=== PATIENT | female | born 1940 | race Caucasian/White ===

== ENCOUNTER → 2018-04-03 11:46 | Outpatient (CLI) | payer OTHER, SELFPAY ==
--- NOTE | 2018-04-03 | DI.MG.S_ITS ---
BILATERAL DIGITAL SCREENING MAMMOGRAM 3D/2D WITH CAD: 04/03/2018 CLINICAL: Routine screening. Family history of breast cancer. Comparison is made to exams dated: 04/17/2016 mammogram, 09/14/2014 mammogram, and 05/20/2013 mammogram - [facility]. The tissue of both breasts is heterogeneously dense. This may lower the sensitivity of mammography. Current study was also evaluated with a Computer Aided Detection (CAD) system. No significant masses, calcifications, or other findings are seen in either breast. There has been no significant interval change. IMPRESSION: NEGATIVE There is no mammographic evidence of malignancy. A 1 year screening mammogram is recommended. This exam was interpreted at Station ID: [id number]. NOTE: For mammograms, a report in lay terms will be sent to the patient. Approximately 15% of breast malignancies will not be visualized mammographically. In the management of a palpable breast mass, a negative mammogram must not discourage biopsy of a clinically suspicious lesion. Electronically Signed By: Kathy brown/kamilla:04/06/2018 09:50:49 copy to: MARK SAUNDERS letter sent: Normal Exam ACR BI-RADS Category 1: Negative [id number]
== END ==
PROVIDERS: Family Provider Internal Medicine; PCP Internal Medicine; Visit Provider Internal Medicine
DX: Z12.31 Encounter for screening mammogram for malignant neoplasm of breast (principal); Z80.3 Family history of malignant neoplasm of breast
CPT/HCPCS: 77063; 77067

== ENCOUNTER → 2018-04-08 13:08 | Outpatient (CLI) | payer OTHER, SELFPAY ==
--- NOTE | 2018-04-08 | DI.CT.S_ITS ---
PROCEDURE: CT ABDOMEN PELVIS WO CON INDICATIONS: Left flank pain radiating into left groin since last night TECHNIQUE: Noncontrast 5 mm thick sections acquired from the diaphragms to the symphysis. 5 mm thick coronal and sagittal reformats were then performed. For radiation dose reduction, the following was used: automated exposure control, adjustment of mA and/or kV according to patient size. COMPARISON: [facility], CT, KIDNEY/ URETER/BLADDER, 02/17/2018, 13:19. FINDINGS: Image quality: Excellent. Lung bases: Lung bases are clear. The a 2 mm calcified granuloma is present at the right lung base. Heart size is normal. Urinary system: Both kidneys are normal size. Nonobstructing calculi are present bilaterally measuring 2 mm in diameter. A 4 mm diameter calculus is present within the proximal left ureter (series 3, image 38). There is mild left hydronephrosis. The downstream left ureter is normal caliber. No other left ureteral stones. No right hydronephrosis, hydroureter, or ureterolithiasis. Bladder is decompressed. No bladder calculi. There is mild left perinephric fat stranding. Other solid organs: Liver is normal in size. Gallbladder is unremarkable. Pancreas is normal in contours. Spleen is normal in size. A splenule is present at the splenic hilum. No adrenal nodules. Peritoneum and bowel: Unenhanced bowel loops demonstrate normal wall thickness and caliber. Anastomotic suture is present within loops of small bowel within the right lower quadrant. The appendix is thin walled and gas filled. There are scattered sigmoid diverticula. No evidence for diverticulitis. No free fluid or air. Nodes and vessels: No retroperitoneal or mesenteric adenopathy by size criteria. Aorta and inferior vena cava are normal in caliber. There are scattered atheromatous calcifications throughout the aorta and iliac arteries bilaterally. Abdominal wall: No ventral hernias. The anterior incisional fluid collection visualized on the study dated 02/17/18 has decreased in size and now measures approximately 1.3 x 1.8 cm (previously measured approximately 2.9 x 3.1 cm). Pelvis: No free pelvic fluid. No inguinal hernias or adenopathy. Bones: No suspicious bony lesions. No vertebral body compression fractures. IMPRESSION: 1. Nonobstructive bilateral nephrolithiasis. 2. 4 mm diameter calculus within the proximal left ureter which does not appear obstructing at this time, but is suspicious for intermittent obstruction with resultant mild hydronephrosis and mild left perinephric fat stranding. This may be the etiology of the patient's flank pain. 3. Diverticulosis. No acute diverticulitis. 4. Normal appendix. 5. Decrease in the size of the incisional fluid collection when compared with the study dated 02/17/18. Dictated by: Kathy Elliott M.D. on 04/08/2018 at 13:52 Approved by: Kathy Elliott M.D. on 04/08/2018 at 14:10
[2018-04-08 13:49] LABS: Add Manual Diff / Slide Review NO; Basophils Percent Auto 0.4 % (0-2); Eosinophils Percent Auto 0.2 % (2-4); Hematocrit 37.9 % (36-46); Hemoglobin 12.7 g/dL (12.0-16.0); Lymphocytes Percent Auto 19.6 % (25-40); Mean Corpuscular HGB Conc 33.6 % (30-36); Mean Corpuscular Hemoglobin 28.8 PG (26-34); Mean Corpuscular Volume 85.6 fL (80-100); Monocytes Percent Auto 3.8 % (3-14); Neutrophils Absolute Auto 5800 /uL (3000-5900); Platelet Count 269 X10^3/uL (150-400); Red Blood Cell Count 4.42 X10^6/uL (4.0-5.2); Red Cell Distribution Width 13.9 % (11.6-14.8); White Blood Cell Count 7.7 X10^3/uL (4.5-11.0)
[2018-04-08 13:56] LABS: BUN Creatinine Ratio 23.3 (6-22); Blood Urea Nitrogen 14 mg/dL (7-17); Calcium 9.7 mg/dL (8.4-10.2); Carbon Dioxide 28 mmol/L (22-32); Chloride 95 mmol/L (98-107); Estimated Glomerular Filt Rate > 60.0 mL/min (>60); Glucose 142 mg/dL (80-110); HEMOLYSIS < 15 (0-50); Potassium 4.3 mmol/L (3.4-5.1); Sodium 136 mmol/L (137-145)
== END ==
PROVIDERS: Family Provider Internal Medicine; PCP Internal Medicine; Visit Provider Internal Medicine
DX: R10.32 Left lower quadrant pain (principal); N20.0 Calculus of kidney; K57.90 Diverticulosis of intestine, part unspecified, without perforation or abscess without bleeding
CPT/HCPCS: 36415; 74176; 80048; 85025

== ENCOUNTER → 2018-04-09 14:22 | Outpatient (CLI) | payer OTHER, SELFPAY | PROVIDERS: Family Provider Internal Medicine; PCP Internal Medicine; Visit Provider Internal Medicine | DX: M85.80 Other specified disorders of bone density and structure, unspecified site (principal) ==

== ENCOUNTER → 2018-06-22 19:55 | Outpatient (CLI) | payer OTHER, SELFPAY | PROVIDERS: Family Provider Internal Medicine; PCP Internal Medicine; Visit Provider Physician Assistant | DX: R10.9 Unspecified abdominal pain (principal); R31.9 Hematuria, unspecified | CPT/HCPCS: 87086 ==

== ENCOUNTER 2018-08-15 13:44 | Inpatient (IN) | payer OTHER, SELFPAY ==
[2018-08-15 13:47] VITALS: BP 128/70; PULSE 69; RESP 20; TEMP 36.8; O2SAT 100
--- NOTE | 2018-08-15 14:02 | ED.ABDPAIN ---
HPI - Abdominal Pain General Chief Complaint: Abdominal Pain Stated Complaint: SHARP PAIN IN MIDSECTION Time Seen by Provider: 08/15/18 14:01 Source: patient Mode of arrival: ambulatory Limitations: no limitations History of Present Illness HPI narrative: Patient is a 77-year-old female who presents with mid abdominal pain which started today around noon she feels nauseated vomiting. She does have a history a resection small bowel resection and small-bowel obstruction. She has increased pain and persistent nausea. She has vomited her prior visits and lunch. 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 This was diagnosed in January 2018, she had a prolonged stay due to all ileus versus obstruction required TPN. MD complaint: abdominal pain Onset (ago): hour(s) Related Data Home Medications Medication Instructions Recorded Confirmed aspirin [Aspirin Low Dose] 81 mg PO Q OTHER DAY #0 03/03/11 08/15/18 cholecalciferol (vitamin D3) 2,000 unit PO Q OTHER DAY #0 03/03/11 08/15/18 [Vitamin D3] ascorbic acid (vitamin C) 500 mg PO QDAY #0 05/20/13 08/15/18 vitamin B complex 1 cap PO DAILY #0 05/20/13 08/15/18 cetirizine 10 mg PO QDAY #0 06/26/17 08/15/18 amlodipine 10 mg PO QDAY #0 12/25/17 08/15/18 aspirin 325 mg PO PRN #0 12/25/17 08/15/18 atorvastatin [Lipitor] 10 mg PO DAILY #0 12/25/17 08/15/18 esomeprazole magnesium [Nexium] 40 mg PO Q OTHER DAY #0 12/25/17 08/15/18 lorazepam 0 mg PO BIDP PRN #0 12/25/17 08/15/18 losartan 100 mg PO QDAY #0 12/25/17 08/15/18 metoprolol succinate 50 mg PO QDAY #0 12/25/17 08/15/18 vitamin A 1 tab PO QDAY #0 12/25/17 08/15/18 omega 9-vwf-xrz-fish oil [Fish Oil] 1,000 mg PO Q OTHER DAY #0 01/20/18 08/15/18 Ca carb-Ca gluc-Mg ox-Mg gluco 1 tab PO Q OTHER DAY 08/15/18 08/15/18 [Calcium Magnesium] alendronate 35 mg PO QWEEK 08/15/18 08/15/18 metformin 850 mg PO BID 08/15/18 08/15/18 Allergies Allergy/AdvReac Type Severity Reaction Status Date / Time No Known Drug Allergies Allergy Verified 06/22/18 19:43 Review of Systems Review of Systems GENERAL: Denies chills, fatigue, malaise, fever, sweats, travel HEENT: Denies sinus pain, ear pain, sore throat, difficulty swallowing, neck pain RESPIRATORY: Denies dyspnea, cough, wheezing, hemoptysis, sputum. CARDIOVASCULAR: Denies chest pain, palpitations, orthopnea, edema GASTROINTESTINAL: See HPI : Denies dysuria, frequency, incontinence, hematuria, urinary retention, flank pain. MUSCULOSKELETAL: Denies weakness, joint pain, or bony pain SKIN: No rash, no erythema, no pruritus NEUROLOGIC: Denies weakness, dizziness, headache, numbness, change in speech, confusion PSYCHIATRIC: No concerning psychosocial issues. 12 point review of systems is negative except for those stated above and HPI [facility] Social History Smoking Status: Never smoker Exam Initial Vital Signs Initial Vital Signs: Vital Signs Temperature 98.3 F 08/15/18 13:47 Pulse Rate 69 08/15/18 13:47 Respiratory Rate 20 08/15/18 13:47 Blood Pressure 128/70 08/15/18 13:47 Pulse Oximetry 100 08/15/18 13:47 GENERAL: Alert elderly female appears in pain actively dry heaving HEENT: Head atraumatic,EOMI, pupils reactive, face symmetric, dry mucous membranes CARDIOVASCULAR: Regular rate and rhythm without murmurs, rubs or gallops. RESPIRATORY: Breath sounds equal bilaterally, no wheezes rales or rhonchi. ABDOMEN: Soft, slightly distended mid abdominal pain of vertical scar noted decreased bowel sounds EXTREMITIES: Normal range of motion, no clubbing or edema. Neurovascularly intact NEUROLOGICAL: Alert and oriented x4.Normal gait and speech. Cranial nerves II through XII grossly intact. SKIN: Warm, dry, no laceration, no petechiae, no rashes or lesions. Course Orders Ordered: ED Orders 08/15/18 14:05 Complete Blood Count AUTO DIFF Stat Comprehensive Metabolic Panel Stat Lipase Stat 08/15/18 14:35 Lactate (Lactic Acid) Stat 08/15/18 14:52 CT abdomen pelvis w con Stat 08/15/18 16:17 Consult to General Surgery Stat Sodium Chloride (Normal Saline 0.9%) 1,000 mls @ 1,000 mls/hr IV CONT CAROLINE Last Infusion: 08/15/18 16:00 Dose: 0 mls/hr Admin: 08/15/18 14:38 Dose: 1,000 mls/hr Discontinued Medications Morphine Sulfate (Morphine) 2 mg IV NOW ONE Stop: 08/15/18 14:22 Last Admin: 08/15/18 14:39 Dose: 2 mg Ondansetron HCl (Zofran) 4 mg IV NOW ONE Stop: 08/15/18 14:22 Last Admin: 08/15/18 14:39 Dose: 4 mg Vital Signs - 8 hr 08/15/18 13:47 08/15/18 16:00 Temperature 98.3 F Pulse Rate 69 58 L Respiratory Rate 20 15 Blood Pressure 128/70 Blood Pressure [Right Arm] 141/66 H Pulse Oximetry 100 97 MDM - Abdominal Pain Lab Data Attestation: I reviewed the patient's lab results. Result diagrams: 08/15/18 14:05 08/15/18 14:05 Lab Results 08/15/18 08/15/18 08/15/18 Range/Units 14:05 14:05 14:35 WBC 8.8 (4.5-11.0) X10^3/uL RBC 4.68 (4.0-5.2) X10^6/uL Hgb 12.2 (12.0-16.0) g/dL Hct 37.1 (36-46) % MCV 79.4 L (80-100) fL MCH 26.1 (26-34) PG MCHC 32.8 (30-36) % RDW 15.1 H (11.6-14.8) % Plt Count 280 (150-400) X10^3/uL Neut % (Auto) 67.3 (50-75) % Lymph % (Auto) 25.0 (25-40) % [place] % (Auto) 6.1 (3-14) % Eos % (Auto) 0.8 L (2-4) % Baso % (Auto) 0.8 (0-2) % Neut # (Auto) 5900 (5483-5890) /uL Sodium 141 (137-145) mmol/L Potassium 3.5 (3.4-5.1) mmol/L Chloride 100 (98-107) mmol/L Carbon Dioxide 29 (22-32) mmol/L BUN 14 (7-17) mg/dL Creatinine 0.60 (0.52-1.04) mg/dL Estimated GFR > 60.0 (>60) mL/min BUN/Creatinine Ratio 23.3 H (6-22) Glucose 120 H (80-110) mg/dL Lactate 2.0 (0.7-2.1) mmol/L Calcium 9.8 (8.4-10.2) mg/dL Total Bilirubin 0.5 (0.2-1.3) mg/dL AST 29 (14-36) IU/L ALT 38 (9-52) IU/L Alkaline Phosphatase 80 (38-126) U/L Total Protein 7.5 (6.3-8.2) g/dL Albumin 4.6 (3.5-5.0) g/dL Globulin 2.9 (1.7-4.1) g/dL Albumin/Globulin Ratio 1.6 (1.0-2.8) Lipase 113 (23-300) U/L Point of care testing: Urine Dip Bedside Urine Glucose Negative Bedside Urine Bilirubin - Negative Bedside Urine Ketone - Negative Urine Specific Buna 1.010 Bedside Urine Occult Blood - Negative Bedside Urine pH 8.0 Bedside Urine Protein - Negative Bedside Urine Urobilinogen - Negative Bedside Urine Nitrite - Negative Bedside Urine Leukocytes - Negative Esterase Imaging Data CT scan - abdomen: Radiologist's impression: PROCEDURE: CT ABDOMEN PELVIS W CON INDICATIONS: pain vomiting hx SBO TECHNIQUE: After the administration of intravenous contrast, 5 mm thick sections acquired from the diaphragm to the symphysis. 5 mm coronal and sagittal reformats were acquired. For radiation dose reduction, the following was used: automated exposure control, adjustment of mA and/or kV according to patient size. COMPARISON: [facility], CT, CT KUB, 06/25/2018, 16:24. FINDINGS: Image quality: Excellent. ABDOMEN: Lung bases: Lung bases are clear. Heart size is normal. Solid organs: Liver demonstrates unchanged hepatic cysts and steatosis. Gallbladder is unremarkable. Biliary system is non dilated. Pancreas enhances normally. Spleen is normal in size and enhancement. There is unchanged left adrenal nodularity. Kidneys demonstrate normal size and enhancement, without hydronephrosis. Bilateral low attenuation renal foci are present. There is a new 3 mm nonobstructing left inferior pole renal calcification, as well as an unchanged punctate mid pole calcification. Punctate superior nonobstructing right renal stone is unchanged. Peritoneum and bowel: Anastomotic changes are present within the small bowel in the anterior abdomen. There is dilated fluid-filled loops of mild to moderately dilated small bowel predominantly within the central and anterior right paracentral lower abdomen and pelvis. Transition point appears to be near the anastomotic site. No free fluid or free air. Colonic diverticula are noted without inflammation. Nodes and vessels: No retroperitoneal or mesenteric adenopathy by size criteria. Aorta and inferior vena cava are normal in size. Miscellaneous: No ventral hernias. PELVIS: Genitourinary: Bladder wall thickness is normal. Miscellaneous: No inguinal hernias or adenopathy. Bones: No suspicious bony lesions. No vertebral body compression fractures. IMPRESSION: 1. Mild/moderate dilated loops of fluid-filled small bowel within the abdomen and pelvis as described above most consistent with partial small bowel traction. Transition point appears to be located in the region of the anastomosis possibly secondary to adhesions. No free fluid or free air. 2. Diverticulosis. 3. Nonobstructing bilateral renal calculi as above. Dictated by: Racheal Mauricio M.D. on 08/15/2018 at 15:08 MDM Narrative Medical decision making narrative: Patient's pain is much better after morphine however not completely gone. CT does reveal partial small bowel obstruction. Dr. Ritter, has been updated in symptoms and test results. Recommend admitting to Medicine. He is in ED to evaluate patient. Not surgical at this time conservative treatment only. Dr. Gallego updated on surgery recommendations patient's symptoms and test results. Recommends inpatient and will likely require 2 midnights. Discharge Plan Departure Patient Disposition: Admitted As Inpatient Clinical Impression: Partial small bowel obstruction
[2018-08-15 14:27] LABS: Add Manual Diff / Slide Review NO; Basophils Percent Auto 0.8 % (0-2); Eosinophils Percent Auto 0.8 % (2-4); Hematocrit 37.1 % (36-46); Hemoglobin 12.2 g/dL (12.0-16.0); Mean Corpuscular HGB Conc 32.8 % (30-36); Mean Corpuscular Hemoglobin 26.1 PG (26-34); Mean Corpuscular Volume 79.4 fL (80-100); Monocytes Percent Auto 6.1 % (3-14); Neutrophils Absolute Auto 5900 /uL (3000-5900); Neutrophils Percent Auto 67.3 % (50-75); Platelet Count 280 X10^3/uL (150-400); Red Blood Cell Count 4.68 X10^6/uL (4.0-5.2); Red Cell Distribution Width 15.1 % (11.6-14.8); White Blood Cell Count 8.8 X10^3/uL (4.5-11.0)
[2018-08-15] MEDS: SODIUM CHLORIDE 0.9% 1,000 ML 1000 ML IV (14:38)
[2018-08-15] MEDS: MORPHINE 2 MG/ML INJ IV (14:39)
[2018-08-15] MEDS: ONDANSETRON 4 MG/2 ML INJ IV (14:39)
[2018-08-15 14:40] LABS: Alanine Aminotransferase 38 IU/L (9-52); Albumin 4.6 g/dL (3.5-5.0); Albumin Globulin Ratio 1.6 (1.0-2.8); Alkaline Phosphatase 80 U/L (38-126); Aspartate Aminotransferase 29 IU/L (14-36); BUN Creatinine Ratio 23.3 (6-22); Bilirubin Total 0.5 mg/dL (0.2-1.3); Blood Urea Nitrogen 14 mg/dL (7-17); Calcium 9.8 mg/dL (8.4-10.2); Carbon Dioxide 29 mmol/L (22-32); Chloride 100 mmol/L (98-107); Estimated Glomerular Filt Rate > 60.0 mL/min (>60); Globulin 2.9 g/dL (1.7-4.1); Glucose 120 mg/dL (80-110); HEMOLYSIS < 15 (0-50); Lipase 113 U/L (23-300); Potassium 3.5 mmol/L (3.4-5.1); Sodium 141 mmol/L (137-145); Total Protein 7.5 g/dL (6.3-8.2)
--- NOTE | 2018-08-15 14:52 | DI.CT.S_ITS ---
PROCEDURE: CT ABDOMEN PELVIS W CON INDICATIONS: pain vomiting hx SBO TECHNIQUE: After the administration of intravenous contrast, 5 mm thick sections acquired from the diaphragm to the symphysis. 5 mm coronal and sagittal reformats were acquired. For radiation dose reduction, the following was used: automated exposure control, adjustment of mA and/or kV according to patient size. COMPARISON: [facility], CT, CT KUB, 06/25/2018, 16:24. FINDINGS: Image quality: Excellent. ABDOMEN: Lung bases: Lung bases are clear. Heart size is normal. Solid organs: Liver demonstrates unchanged hepatic cysts and steatosis. Gallbladder is unremarkable. Biliary system is non dilated. Pancreas enhances normally. Spleen is normal in size and enhancement. There is unchanged left adrenal nodularity. Kidneys demonstrate normal size and enhancement, without hydronephrosis. Bilateral low attenuation renal foci are present. There is a new 3 mm nonobstructing left inferior pole renal calcification, as well as an unchanged punctate mid pole calcification. Punctate superior nonobstructing right renal stone is unchanged. Peritoneum and bowel: Anastomotic changes are present within the small bowel in the anterior abdomen. There is dilated fluid-filled loops of mild to moderately dilated small bowel predominantly within the central and anterior right paracentral lower abdomen and pelvis. Transition point appears to be near the anastomotic site. No free fluid or free air. Colonic diverticula are noted without inflammation. Nodes and vessels: No retroperitoneal or mesenteric adenopathy by size criteria. Aorta and inferior vena cava are normal in size. Miscellaneous: No ventral hernias. PELVIS: Genitourinary: Bladder wall thickness is normal. Miscellaneous: No inguinal hernias or adenopathy. Bones: No suspicious bony lesions. No vertebral body compression fractures. IMPRESSION: 1. Mild/moderate dilated loops of fluid-filled small bowel within the abdomen and pelvis as described above most consistent with partial small bowel traction. Transition point appears to be located in the region of the anastomosis possibly secondary to adhesions. No free fluid or free air. 2. Diverticulosis. 3. Nonobstructing bilateral renal calculi as above. Dictated by: Racheal Mauricio M.D. on 08/15/2018 at 15:08 Approved by: Racheal Mauricio M.D. on 08/15/2018 at 15:15
[2018-08-15 16:00] VITALS: BP 141/66; PULSE 58; RESP 15; O2SAT 97
[2018-08-15 17:05] VITALS: BMI 30.8
[2018-08-15 17:15] VITALS: BP 116/68; RESP 20; O2SAT 94
[2018-08-15 17:28] VITALS: BP 115/55; PULSE 59; RESP 16; O2SAT 95
--- NOTE | 2018-08-15 18:12 | PM.HP.1 ---
History of Present Illness Date Patient Seen: 08/15/18 Time Patient Seen: 18:13 Chief complaint: SHARP PAIN IN MIDSECTION Narrative: Patient is a very pleasant 77 years of age female who notes the abrupt onset of mid abdominal region discomfort that was quite sharp from the onset. Patient had 1 episode of nausea and vomiting came to the emergency room for further eval. Patient was attended by her Patient has prior history of neuroendocrine tumor of the abdomen with surgery in January of 2018. No history of any other tumor identified. No recent fevers and chills. No recent significant diarrhea or constipation. Patient History Comment: Past medical history Neuroendocrine tumor of the abdomen with surgical excision January 2018 Pre diabetes Hypertension Hyperlipidemia Rheumatic fever at 5 years of age with minimal heart murmur since No history of the following no atherosclerotic heart disease no thyroid disorder history of DVT or PE for history of peripheral vascular disease Social history Patient is Nonsmoker Surgical history Last major surgery was the abdominal surgery in January of 2018 with excision of tumor Family history No history of neuroendocrine tumor in other family members Mother with history of breast cancer One aunt with history of kidney cancer Another aunt with history of bladder cancer Family & Social History Tobacco & Substance use: Smoking Status Never smoker Meds Home Medications Medication Instructions Recorded Confirmed Type aspirin [Aspirin Low Dose] 81 mg PO Q OTHER DAY #0 03/03/11 08/15/18 History cholecalciferol (vitamin D3) 2,000 unit PO Q OTHER DAY #0 03/03/11 08/15/18 History [Vitamin D3] ascorbic acid (vitamin C) 500 mg PO QDAY #0 05/20/13 08/15/18 History vitamin B complex 1 cap PO DAILY #0 05/20/13 08/15/18 History cetirizine 10 mg PO QDAY #0 06/26/17 08/15/18 History amlodipine 10 mg PO QDAY #0 12/25/17 08/15/18 History aspirin 325 mg PO PRN #0 12/25/17 08/15/18 History atorvastatin [Lipitor] 10 mg PO DAILY #0 12/25/17 08/15/18 History esomeprazole magnesium [Nexium] 40 mg PO Q OTHER DAY #0 12/25/17 08/15/18 History lorazepam 0 mg PO BIDP PRN #0 12/25/17 08/15/18 History losartan 100 mg PO QDAY #0 12/25/17 08/15/18 History metoprolol succinate 50 mg PO QDAY #0 12/25/17 08/15/18 History vitamin A 1 tab PO QDAY #0 12/25/17 08/15/18 History omega 3-uuy-dro-fish oil [Fish Oil] 1,000 mg PO Q OTHER DAY #0 01/20/18 08/15/18 History Ca carb-Ca gluc-Mg ox-Mg gluco 1 tab PO Q OTHER DAY 08/15/18 08/15/18 History [Calcium Magnesium] alendronate 35 mg PO QWEEK 08/15/18 08/15/18 History metformin 850 mg PO BID 08/15/18 08/15/18 History Allergies Allergy/AdvReac Type Severity Reaction Status Date / Time No Known Drug Allergies Allergy Verified 06/22/18 19:43 Review of Systems Review of Systems A 10 point system reviewed with the patient was negative except for the complaints as noted of the sharp abdominal pain with 1 episode of nausea and vomiting Exam Vital Signs (past 8 hours): - 08/15/18 13:47 08/15/18 16:00 08/15/18 17:28 Temperature 98.3 F Pulse Rate 69 58 L 59 L Respiratory Rate 20 15 16 Blood Pressure 128/70 115/55 L Blood Pressure [Right Arm] 141/66 H Pulse Oximetry 100 97 95 Oxygen Delivery Method Room Air Narrative Exam Narrative: General appearance patient is not awake and alert no apparent distress at rest Psychiatric well oriented to time place and person mood is pleasant affect is appropriate Skin no dermatitis no rash nonjaundiced normal turgor Eyes pupils are equal round and reactive to light Ears nose and throat hearing grossly intact nose septum to midline no bleeding no oropharyngeal lesions noted Respiratory fairly clear to auscultation with no wheezing no crackles good airflow Cardiovascular regular rate rhythm no murmurs PMI nondisplaced +3 pulses to extremities GI no significant tenderness to palpation bowel sounds are present but a bit diminished soft abdomen no bruits Neurologic no focal neurologic changes cranial nerves 2-12 grossly intact Musculoskeletal 5/5 motor range of motion appears normal no clubbing Objective Labs Result Diagrams: 08/15/18 14:05 08/15/18 14:05 Labs: Laboratory Results - last 24 hr 08/15/18 08/15/18 08/15/18 14:05 14:05 14:35 WBC 8.8 RBC 4.68 Hgb 12.2 Hct 37.1 MCV 79.4 L MCH 26.1 MCHC 32.8 RDW 15.1 H Plt Count 280 Neut % (Auto) 67.3 Lymph % (Auto) 25.0 [place] % (Auto) 6.1 Eos % (Auto) 0.8 L Baso % (Auto) 0.8 Neut # (Auto) 5900 Sodium 141 Potassium 3.5 Chloride 100 Carbon Dioxide 29 BUN 14 Creatinine 0.60 Estimated GFR > 60.0 BUN/Creatinine Ratio 23.3 H Glucose 120 H Lactate 2.0 Calcium 9.8 Total Bilirubin 0.5 AST 29 ALT 38 Alkaline Phosphatase 80 Total Protein 7.5 Albumin 4.6 Globulin 2.9 Albumin/Globulin Ratio 1.6 Lipase 113 Assessment & Plan Plan: Assessment/Plan Narrative: Incomplete small bowel obstruction General surgeon saw patient in the ER and okayed patient to have some broth. Nursing staff notes to be cautious regarding oral intake tonight, including fluids. Analgesic therapy to be provided Dilaudid 0.5 mg q.2 hours for [id number] pain as needed and 1 mg every 2 hr as needed for more of a moderate to severe pain. Consider two-view x-ray in a.m. and possibly Gastrografin small bowel series to further valve Pre diabetes Will obtain patient's hemoglobin A1c. She has not been taking her metformin for an indeterminate period of time Hypertension and hyperlipidemia Continue home medications as tolerated Time Spent With Patient Time with patient: Greater than 35 minutes (50 min to admit to inpatient)
[2018-08-15 18:19] VITALS: BMI 30.8
[2018-08-15] MEDS: SODIUM CHLORIDE 0.9% 1,000 ML 100 ML IV (19:03)
[2018-08-15] MEDS: HYDROMORPHONE 1 MG INJ 0.5 MG IV (19:14)
[2018-08-15 19:54] LABS: C-Reactive Protein Quant < 0.5 mg/dL (<1.0)
--- NOTE | 2018-08-15 23:54 | PC.NURSE ---
Alert/oriented. Denies pain/discomfort, reports hasn't had any pain since last medicated. Patient reports having a BM on prior shift and that the stool was hard. Abdomen soft, non-tender bowel tones hypoactive. Call light within reach.
[2018-08-16] VITALS (10 sets, daily range): BP systolic 123–134; BP diastolic 51–76; PULSE 49–57; RESP 16–19; TEMP 36.4–36.7; O2SAT 92–98
[2018-08-16] MEDS: SODIUM CHLORIDE 0.9% 1,000 ML 100 ML IV (04:10)
[2018-08-16 05:48] LABS: C-Reactive Protein Quant 0.6 mg/dL (<1.0)
--- NOTE | 2018-08-16 08:16 | PC.NURSE ---
Addendum entered by Stephanie Downey R.N. 08/16/18 10:22: Ate about half of the clear liquids sent for breakfast. Denies N/V or abd pain after eating. States she's feeling well and is hoping she might get to go home today. Up to BR with SBA, then back to bed. Encouraged ankle waving while in bed. Call light in reach, bed alarm on. Original Note: Shift summary: Awake and alert, oriented X3. Denies abd pain, denies N/V. BT+, hypoactive. Reports passing flatus last mikala, unsure since then. Abd soft, nontender, non-distended. Tolerating clear liquids. IVF per orders, site in L AC WNL. Indep with bed mobility, SBA OOB, steady on feet. Able to make needs known. Call light in reach, bed alarm on.
--- NOTE | 2018-08-16 08:49 | CM.DANOTE ---
DCP: Case received, EMR reviewed and met with patient. Introduced self and role. DCP template completed with information currently available. Patient is a 77 year old female who admitted yesterday afternoon to the care of the hospitalist team. PCP: Dr. Jyoti Prasad. Payer: confirmed: [employer]. Patient came to hospital with symptoms of pain in her midsection. She carries a diagnosis of incomplete small bowel obstruction. Patient alert and oriented, independent. Lives in [place] with her spouse. Gave a health history of her illness to this telephonic case manager. 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 P: DCP to continue to assess. Patient's goal is to return home. Chen Josue RN/Marketing Senior Recruiter
[2018-08-16] MEDS: ALENDRONATE 70 MG TABLET 35 MG PO (09:45)
[2018-08-16] MEDS: LORATADINE 10 MG TABLET PO (09:46)
[2018-08-16] MEDS: ATORVASTATIN 10 MG TABLET PO (09:46)
[2018-08-16] MEDS: AMLODIPINE 5 MG TABLET 10 MG PO (09:46)
[2018-08-16] MEDS: ASCORBIC ACID 500 MG TABLET PO (09:46)
[2018-08-16] MEDS: LOSARTAN 50 MG TABLET 100 MG PO (09:47)
[2018-08-16] MEDS: VITAMIN B COMPLEX 1 CAPSULE 1 CAP PO (09:47)
[2018-08-16] MEDS: METOPROLOL ER 50 MG TABLET PO (09:48)
--- NOTE | 2018-08-16 13:50 | PM.PN.1 ---
Subjective Date Patient Seen: 08/16/18 Interval history: Chart reviewed, patient seen and examined. She reports a large BM last night. She also reports gas from below. She tolerated a clear liquid breakfast and lunch without difficulty. Patient reports pressure near her bladder but no upper abdominal discomfort. Exam Vital Signs (past 8 hours): - 08/16/18 07:55 08/16/18 08:13 08/16/18 12:35 Temperature 97.8 F 98.1 F Pulse Rate 53 L 49 L Respiratory Rate 19 17 Blood Pressure 124/74 123/63 Pulse Oximetry 95 95 95 Oxygen Delivery Method Room Air Oxygen Flow Rate 0 Narrative Exam Narrative: Pleasant female in no acute distress Lungs: Clear to auscultation CV: RRR nl Sl S2 2/6 NASEEM Abd: soft/ non distended/ non tender/ no boardlike rigidity/ no palpable masses, hypoactive bowel tones Ext: no edema Objective Labs Result Diagrams: 08/15/18 14:05 08/15/18 14:05 Labs: Laboratory Results - last 24 hr 08/15/18 08/15/18 08/15/18 14:05 14:05 14:35 WBC 8.8 RBC 4.68 Hgb 12.2 Hct 37.1 MCV 79.4 L MCH 26.1 MCHC 32.8 RDW 15.1 H Plt Count 280 Neut % (Auto) 67.3 Lymph % (Auto) 25.0 [place] % (Auto) 6.1 Eos % (Auto) 0.8 L Baso % (Auto) 0.8 Neut # (Auto) 5900 Sodium 141 Potassium 3.5 Chloride 100 Carbon Dioxide 29 BUN 14 Creatinine 0.60 Estimated GFR > 60.0 BUN/Creatinine Ratio 23.3 H Glucose 120 H Hemoglobin A1c Lactate 2.0 Calcium 9.8 Total Bilirubin 0.5 AST 29 ALT 38 Alkaline Phosphatase 80 C-Reactive Protein Total Protein 7.5 Albumin 4.6 Globulin 2.9 Albumin/Globulin Ratio 1.6 Lipase 113 08/15/18 08/15/18 08/16/18 19:30 19:30 04:50 WBC RBC Hgb Hct MCV MCH MCHC RDW Plt Count Neut % (Auto) Lymph % (Auto) [place] % (Auto) Eos % (Auto) Baso % (Auto) Neut # (Auto) Sodium Potassium Chloride Carbon Dioxide BUN Creatinine Estimated GFR BUN/Creatinine Ratio Glucose Hemoglobin A1c 7.0 H Lactate Calcium Total Bilirubin AST ALT Alkaline Phosphatase C-Reactive Protein < 0.5 0.6 Total Protein Albumin Globulin Albumin/Globulin Ratio Lipase Assessment & Plan (1) Partial small bowel obstruction: Problem details: Will advance diet as tolerated. Heplock IVF Current visit: Yes Status: Acute (2) Hypertension: Problem details: continue usual home medications Current visit: No Status: Acute Plan: Assessment/Plan Narrative: If she tolerates he diet without nausea/vomiting or abdominal pain anticipate discharge tomorrow. Quality VTE Deep Vein Thrombosis/Pulmonary Embolism Present on Admission: No
--- NOTE | 2018-08-16 16:35 | PM.PN.1 ---
Subjective Date Patient Seen: 08/16/18 Time Patient Seen: 16:35 Interval history: Charlene is a [place] lady who is well known to my service. My partner Dr. Thorne operated on her this past January for a neuroendocrine tumor. She was admitted last evening with abdominal pain. She had a large bowel movement overnight and has passed a significant amount of flatus today. She reports that she is feeling very well now. Exam Vital Signs (past 8 hours): - 08/16/18 12:35 08/16/18 16:22 Temperature 98.1 F 97.6 F Pulse Rate 49 L 55 L Respiratory Rate 17 18 Blood Pressure 123/63 130/64 Pulse Oximetry 95 98 Oxygen Delivery Method Room Air Oxygen Flow Rate 0 Narrative Exam Narrative: Abdomen is soft, nontender, active bowel sounds. No rebound or guarding. No peritoneal signs. Well-healed surgical incisions. Objective Labs Result Diagrams: 08/15/18 14:05 08/15/18 14:05 Labs: Laboratory Results - last 24 hr 08/15/18 08/15/18 08/16/18 19:30 19:30 04:50 Hemoglobin A1c 7.0 H C-Reactive Protein < 0.5 0.6 Assessment & Plan Plan: Assessment/Plan Narrative: Charlene can have a soft mechanical diet tonight. If she tolerates this she can have a diet of her choice and can be discharged when it is felt appropriate from a medical perspective. Quality VTE Deep Vein Thrombosis/Pulmonary Embolism Present on Admission: No
[2018-08-16] MEDS: ASPIRIN 325 MG TABLET PO (19:08)
[2018-08-17 05:15] VITALS: BP 130/87; PULSE 55; RESP 16; TEMP 36.7; O2SAT 97
[2018-08-17 05:52] LABS: C-Reactive Protein Quant < 0.5 mg/dL (<1.0)
[2018-08-17 07:15] VITALS: BP 110/71; PULSE 53; RESP 16; TEMP 36.6; O2SAT 99
[2018-08-17 09:12] VITALS: O2SAT 98
--- NOTE | 2018-08-17 10:01 | P.DS_ITS ---
History of Present Illness Date Patient Seen: 08/17/18 Chief complaint: SHARP PAIN IN MIDSECTION Narrative: Patient is a very pleasant 77 years of age female who notes the abrupt onset of mid abdominal region discomfort that was quite sharp from the onset. Patient had 1 episode of nausea and vomiting came to the emergency room for further eval. Patient was attended by her Patient has prior history of neuroendocrine tumor of the abdomen with surgery in January of 2018. No history of any other tumor identified. No recent fevers and chills. No recent significant diarrhea or constipation. Discharge Providers Date of admission: 08/15/18 16:53 Primary care physician: Jyoti Prasad MD Consults: 08/15/18 16:17 Consult to General Surgery Stat Comment: Consulting Provider: James Peoples Reason for consultation: SBO Has provider been notified: Yes Discharge provider: Ila Lopez MD Discharge Date: 08/17/18 Summary Discharge Diagnosis: Partial small bowel obstruction History of neuroendocrine tumor of the stomach Hypertension Hyperlipdemia GERD Hospital Course: Patient was admitted to the hospital for a partial small bowel obstruction. She was evaluated by surgery who recommended conservative therapy. The patient made slow but steady progress. She was able to pass flatus, had a large BM today and tolerated her mechanical soft diet. The patient was able to have a regular diet today which she tolerated without any nausea, abdominal pain , or vomiting. Patient was felt to be appropriate for discharge home. Status at Discharge Functional status at discharge: independent ambulation Overall status at discharge: patient is back to baseline Time Spent with Patient Less than 30 minutes Exam Vital Signs (past 8 hours): - 08/17/18 05:15 08/17/18 07:15 08/17/18 09:12 Temperature 98.0 F 97.8 F Pulse Rate 55 L 53 L Respiratory Rate 16 16 Blood Pressure 130/87 110/71 Pulse Oximetry 97 99 98 Oxygen Delivery Method Room Air Oxygen Flow Rate 0 Narrative Exam Narrative: Pleasant female in no acute distress Lungs: Clear to auscultation CV: RRR nl Sl S2 3/6 NASEEM Abd: soft/ non tender /non distended/ no rebound/ no boardlike rigidity Ext: trace edema Objective Labs Result Diagrams: 08/15/18 14:05 08/15/18 14:05 Labs: Laboratory Results - last 24 hr 08/17/18 04:56 C-Reactive Protein < 0.5 Discharge Plan Discharge Plan Discharge Problem: Partial small bowel obstruction Patient Disposition: Home Discharge Med Rec/Prescriptions Prescriptions: Continue aspirin [Aspirin Low Dose] 81 mg Tablet,Delayed Release (Dr/Ec) 81 mg PO Q OTHER DAY Qty: 0 RF: 0 cholecalciferol (vitamin D3) [Vitamin D3] 2,000 unit Capsule 2,000 unit PO Q OTHER DAY Qty: 0 RF: 0 ascorbic acid (vitamin C) 500 MG tablet 500 mg PO QDAY Qty: 0 RF: 0 vitamin B complex Capsule 1 cap PO DAILY Qty: 0 RF: 0 cetirizine 10 MG tablet 10 mg PO QDAY Qty: 0 RF: 0 aspirin 325 MG tablet 325 mg PO PRN Qty: 0 RF: 0 amlodipine 10 MG tablet 10 mg PO QDAY Qty: 0 RF: 0 atorvastatin [Lipitor] 10 MG tablet 10 mg PO DAILY Qty: 0 RF: 0 lorazepam 1 MG tablet PO BIDP PRN (Reason: Anxiety) Qty: 0 RF: 0 losartan 100 MG tablet 100 mg PO QDAY Qty: 0 RF: 0 metoprolol succinate 50 MG tablet extended release 24 hr 50 mg PO QDAY Qty: 0 RF: 0 vitamin A 10,000 unit Capsule 1 tab PO QDAY Qty: 0 RF: 0 esomeprazole magnesium [Nexium] 40 MG capsule,delayed release(DR/EC) 40 mg PO Q OTHER DAY Qty: 0 RF: 0 omega 2-fic-cny-fish oil [Fish Oil] 1,000 mg (120 mg-180 mg) Capsule 1,000 mg PO Q OTHER DAY Qty: 0 RF: 0 metformin 850 mg Tablet 850 mg PO BID RF: 0 alendronate 35 mg Tablet 35 mg PO QWEEK RF: 0 Ca carb-Ca gluc-Mg ox-Mg gluco [Calcium Magnesium] 500 mg calcium -250 mg Tablet 1 tab PO Q OTHER DAY RF: 0 Follow up/Referrals: Jyoti Prasad MD [Primary Care Provider] - (Follow up with Dr. Prasad next week) Provider Discharge Instructions Diet: Diet as Tolerated Activity: as tolerated Discharge Data Primary Care Provider: Jyoti Prasad Attending Provider: Mohamud Gallego Admit Date/Time: 08/15/18 16:53 Quality VTE Deep Vein Thrombosis/Pulmonary Embolism Present on Admission: No
[2018-08-17] MEDS: AMLODIPINE 5 MG TABLET 10 MG PO (10:10)
[2018-08-17] MEDS: LORATADINE 10 MG TABLET PO (10:11)
[2018-08-17] MEDS: ASCORBIC ACID 500 MG TABLET PO (10:11)
[2018-08-17] MEDS: ATORVASTATIN 10 MG TABLET PO (10:11)
[2018-08-17] MEDS: LOSARTAN 50 MG TABLET 100 MG PO (10:11)
[2018-08-17] MEDS: VITAMIN B COMPLEX 1 CAPSULE 1 CAP PO (10:11)
[2018-08-17] MEDS: METOPROLOL ER 50 MG TABLET PO (10:12)
--- NOTE | 2018-08-17 10:22 | CM.DPC ---
DCP Cont: Patient is to be discharged home today, no issues at discharge. Patient is ambulating on her own. Is alert and oriented, no complaints. P:Patient discharging home today, has support of spouse. Chen Josue RN/[employer]
== END 2018-08-17 12:15 | disposition home or self-care (01) | DRG 390 ==
LOC: ED 16:17 → AC 16:54
PROVIDERS: Admitting Provider Internal Medicine; Emergency Provider Emergency Medicine; Family Provider Internal Medicine; PCP Internal Medicine; Visit Provider Internal Medicine
DX: K56.600 Partial intestinal obstruction, unspecified as to cause (principal); I10 Essential (primary) hypertension; R73.03 Prediabetes; E78.5 Hyperlipidemia, unspecified; K21.9 Gastro-esophageal reflux disease without esophagitis; Z85.028 Personal history of other malignant neoplasm of stomach
CPT/HCPCS: 36415; 36591; 36592; 74177; 80053; 81003; 82962; 83036; 83605; 83690; 85025; 86140; 96361; 96374; 96375; 99231; 99283; 99284; J1170; J1650; J2270; J2405; Q9967

== ENCOUNTER 2018-09-05 21:18 | Emergency (ER) | payer OTHER, SELFPAY ==
[2018-09-05 21:29] VITALS: BP 127/64; PULSE 67; RESP 20; TEMP 36.7; O2SAT 98; BMI 30.7
--- NOTE | 2018-09-05 22:26 | DI.RAD.S_ITS ---
PROCEDURE: XR ACUTE ABDOMEN SERIES INDICATIONS: Abdominal pain, SBO, feels the same TECHNIQUE: One view chest and two views of the abdomen were acquired. COMPARISON: [facility], , ABDOMEN ACUTE SERIES, 01/28/2018, 5:20. FINDINGS: Surgical changes and devices: None. Chest: Lungs are clear. Heart size is normal. No pleural effusions. No pneumoperitoneum. Abdomen: Bowel gas pattern is abnormal with a lesser degree of small bowel gas distention than was present 01/28/18 but in the same general area of the lower midabdomen, centered just to the left of midline. No suspicious calcifications. Visualized solid organ contours appear normal. Bones: No suspicious bony lesions. IMPRESSION: Mild lower early small bowel obstruction pattern lower left midabdomen, but not to the same degree as was previously present in January of this year. No free air found. Dictated by: Mack Irizarry M.D. on 09/06/2018 at 8:15 Approved by: Mack Irizarry M.D. on 09/06/2018 at 8:16
--- NOTE | 2018-09-05 22:29 | ED.ABDPAIN ---
HPI - Abdominal Pain General Chief Complaint: Abdominal Pain Stated Complaint: THINKS SHE HAS A BOWL BLOCKAGE Time Seen by Provider: 09/05/18 22:25 Source: patient and family Mode of arrival: ambulatory Limitations: no limitations History of Present Illness HPI narrative: 77-year-old nonsmoking female with history of small-bowel obstruction presents with her in the chief complaint of resolved made at mid pain. She was admitted to the hospital a few weeks ago for a small bowel obstruction that resolved without surgical intervention. Since her discharge from the hospital she has altered her diet and eaten many vegetables and soft foods. She has felt quite well and had little to complain about until today. She went with her to dinner with friends and had a very large meal of [place] food. She admittedly consumed much more than she is accustomed to using and there was significant ascitic and fatty foods. She developed increasing mid abdomen pain that was reminiscent of a small-bowel obstruction. She had decided to come in for evaluation then vomited a large amount of food and has been asymptomatic since. She denies any fever or chills. She has no ongoing pain. She continues to pass flatus and feels well. MD complaint: abdominal pain Onset (ago): hour(s) Pain Consistency: now resolved Location: epigastric Severity: moderate Quality: cramping and aching Radiation: none Relieving factors: vomiting Exacerbating factors: nothing Associated symptoms: denies other symptoms Related Data Home Medications Medication Instructions Recorded Confirmed aspirin [Aspirin Low Dose] 81 mg PO Q OTHER DAY #0 03/03/11 08/15/18 cholecalciferol (vitamin D3) 2,000 unit PO Q OTHER DAY #0 03/03/11 08/15/18 [Vitamin D3] ascorbic acid (vitamin C) 500 mg PO QDAY #0 05/20/13 08/15/18 vitamin B complex 1 cap PO DAILY #0 05/20/13 08/15/18 cetirizine 10 mg PO QDAY #0 06/26/17 08/15/18 amlodipine 10 mg PO QDAY #0 12/25/17 08/15/18 aspirin 325 mg PO PRN #0 12/25/17 08/15/18 atorvastatin [Lipitor] 10 mg PO DAILY #0 12/25/17 08/15/18 esomeprazole magnesium [Nexium] 40 mg PO Q OTHER DAY #0 12/25/17 08/15/18 lorazepam 0 mg PO BIDP PRN #0 12/25/17 08/15/18 losartan 100 mg PO QDAY #0 12/25/17 08/15/18 metoprolol succinate 50 mg PO QDAY #0 12/25/17 08/15/18 vitamin A 1 tab PO QDAY #0 12/25/17 08/15/18 omega 2-pis-rts-fish oil [Fish Oil] 1,000 mg PO Q OTHER DAY #0 01/20/18 08/15/18 Ca carb-Ca gluc-Mg ox-Mg gluco 1 tab PO Q OTHER DAY 08/15/18 08/15/18 [Calcium Magnesium] alendronate 35 mg PO QWEEK 08/15/18 08/15/18 metformin 850 mg PO BID 08/15/18 08/15/18 Allergies Allergy/AdvReac Type Severity Reaction Status Date / Time No Known Drug Allergies Allergy Verified 09/05/18 21:34 Review of Systems Review of Systems All systems reviewed & are unremarkable except as noted in HPI and below Constitutional Denies chills, Denies fever(s), Denies lethargy and Denies weakness Eyes Denies change in vision, Denies eye discharge, Denies irritation and Denies loss of vision ENT Ears, Nose, Mouth, and Throat: Denies change in voice, Denies neck pain and Denies sore throat Cardiovascular Denies chest pain, Denies irregular heart rhythm, Denies lightheadedness, Denies palpitations, Denies dyspnea, Denies dyspnea on exertion and Denies orthopnea Respiratory Denies cough, Denies dyspnea, Denies dyspnea on exertion and Denies wheezing Gastrointestinal Gastrointestinal: Reports abdominal pain, Denies change in bowel habits, Denies diarrhea, Reports nausea and Reports vomiting Genitourinary Denies hematuria, Denies flank pain, Denies urinary incontinence and Denies urinary urgency Musculoskeletal Denies neck pain Integumentary/Breasts Denies pruritus, Denies erythema, Denies rash and Denies wounds Neurologic Denies confusion, Denies loss of vision and Denies weakness Psychiatric Denies anxiety, Denies confusion, Denies depression, Denies homicidal ideation and Denies suicidal ideation Endocrine Denies palpitations Hematologic/Lymphatic Denies easy bruising Allergic/Immunologic Denies wheezing [facility] Social History household members: spouse Smoking Status: Never smoker Exam Narrative Exam Narrative: 77-year-old female resting comfortably, in no obvious distress Initial Vital Signs Initial Vital Signs: Vital Signs Temperature 98.0 F 09/05/18 21:29 Pulse Rate 67 09/05/18 21:29 Respiratory Rate 20 09/05/18 21:29 Blood Pressure 127/64 09/05/18 21:29 Pulse Oximetry 98 09/05/18 21:29 Const General: cooperative and well developed Nutritional Appearance: well nourished Orientation: alert, awake, oriented x3 and not confused HENMT Head: normocephalic and atraumatic Ears: external ears normal and TM's normal bilaterally Nose: external nose normal and No nasal discharge Face and sinus: sinuses nontender, face symmetric, no sinus tenderness and No dry mucous membranes Mouth: oral mucosae normal and moist mucous membranes Teeth and gingiva: dentition normal Throat: tonsils normal and uvula midline Chest Chest: normal inspection of the chest Cardio Rate: regular rate Rhythm: regular rhythm Heart Sounds: no click, no gallops, no murmurs and no rubs Pulses: normal peripheral pulses Back/Spine/Pelvis Back: No CVA tenderness Cervical Spine: cervical ROM normal and No pain with cervical ROM Thoracic/Lumbar Spine: thoracic and lumbar spine normal to inspection Neuro General: alert, oriented x3, gait normal and no focal motor deficits Speech: speech normal Course Orders Ordered: ED Orders 09/05/18 22:26 XR acute abdomen series Stat 09/05/18 22:44 Complete Blood Count AUTO DIFF Stat Comprehensive Metabolic Panel Stat Lipase Stat Discontinued Medications Sodium Chloride (Normal Saline 0.9%) 1,000 mls @ 150 mls/hr IV CONT CAROLINE Last Admin: 09/06/18 00:04 Dose: Not Given Vital Signs - 8 hr 09/05/18 21:29 09/06/18 00:04 Temperature 98.0 F Pulse Rate 67 76 Respiratory Rate 20 18 Blood Pressure 127/64 119/54 L Pulse Oximetry 98 97 MDM - Abdominal Pain Differential Diagnosis Differential diagnosis: Likely abdominal pain, constipation, gastroenteritis and small bowel obstruction Medical Records Attestation: I reviewed the patient's medical records. Lab Data Attestation: I reviewed the patient's lab results. Result diagrams: 09/05/18 22:44 09/05/18 22:44 Lab Results 09/05/18 09/05/18 Range/Units 22:44 22:44 WBC 10.4 (4.5-11.0) X10^3/uL RBC 4.47 (4.0-5.2) X10^6/uL Hgb 11.5 L (12.0-16.0) g/dL Hct 35.7 L (36-46) % MCV 80.0 (80-100) fL MCH 25.8 L (26-34) PG MCHC 32.2 (30-36) % RDW 15.5 H (11.6-14.8) % Plt Count 265 (150-400) X10^3/uL Neut % (Auto) 82.5 H (50-75) % Lymph % (Auto) 12.2 L (25-40) % Bertie % (Auto) 4.1 (3-14) % Eos % (Auto) 0.6 L (2-4) % Baso % (Auto) 0.6 (0-2) % Neut # (Auto) 8600 H (5679-4048) /uL Sodium 139 (137-145) mmol/L Potassium 4.1 (3.4-5.1) mmol/L Chloride 100 (98-107) mmol/L Carbon Dioxide 26 (22-32) mmol/L BUN 23 H (7-17) mg/dL Creatinine 0.70 (0.52-1.04) mg/dL Estimated GFR > 60.0 (>60) mL/min BUN/Creatinine Ratio 32.9 H (6-22) Glucose 177 H (80-110) mg/dL Calcium 9.6 (8.4-10.2) mg/dL Total Bilirubin 0.3 (0.2-1.3) mg/dL AST 23 (14-36) IU/L ALT 31 (9-52) IU/L Alkaline Phosphatase 78 (38-126) U/L Total Protein 7.2 (6.3-8.2) g/dL Albumin 4.4 (3.5-5.0) g/dL Globulin 2.8 (1.7-4.1) g/dL Albumin/Globulin Ratio 1.6 (1.0-2.8) Lipase 124 (23-300) U/L [facility] Narrative Medical decision making narrative: Patient with history of bowel obstruction presents after resolution of mid abdominal pain and a large episode of emesis. She is asymptomatic for the duration of her visit. Abdominal x-ray does not suggest an obstructive pattern and labs are normal. She states she feels much better refuses any further imaging or evaluation. She states she would prefer to go home and follow up with her doctors. She understands what symptoms would dictate at returned. She has had her questions answered to her apparent satisfaction Discharge Plan Departure Patient Disposition: Home Clinical Impression: Abdominal pain Discharge Date/Time: 09/06/18 00:05 Interventions: ED Discharge Assessment Last Done: 09/06/18 00:04 Instructions: DI for Abdominal Pain-Adult Activity Restrictions/Additional Instructions: *You have been diagnosed with [ epigastric pain resolved ] *What to do: *TPlease continue your medications as previously instructed *Follow up with your primary care provider in 2-3 days, call for an appointment. Let them know you were seen in the Emergency Department and that we ask that you be seen in follow up *Return to ER if you should have any new, worsening or concerning symptoms Prescriptions: No Action aspirin [Aspirin Low Dose] 81 mg Tablet,Delayed Release (Dr/Ec) 81 mg PO Q OTHER DAY Qty: 0 RF: 0 cholecalciferol (vitamin D3) [Vitamin D3] 2,000 unit Capsule 2,000 unit PO Q OTHER DAY Qty: 0 RF: 0 ascorbic acid (vitamin C) 500 MG tablet 500 mg PO QDAY Qty: 0 RF: 0 vitamin B complex Capsule 1 cap PO DAILY Qty: 0 RF: 0 cetirizine 10 MG tablet 10 mg PO QDAY Qty: 0 RF: 0 aspirin 325 MG tablet 325 mg PO PRN Qty: 0 RF: 0 amlodipine 10 MG tablet 10 mg PO QDAY Qty: 0 RF: 0 atorvastatin [Lipitor] 10 MG tablet 10 mg PO DAILY Qty: 0 RF: 0 lorazepam 1 MG tablet PO BIDP PRN (Reason: Anxiety) Qty: 0 RF: 0 losartan 100 MG tablet 100 mg PO QDAY Qty: 0 RF: 0 metoprolol succinate 50 MG tablet extended release 24 hr 50 mg PO QDAY Qty: 0 RF: 0 vitamin A 10,000 unit Capsule 1 tab PO QDAY Qty: 0 RF: 0 esomeprazole magnesium [Nexium] 40 MG capsule,delayed release(DR/EC) 40 mg PO Q OTHER DAY Qty: 0 RF: 0 omega 5-rkz-dkl-fish oil [Fish Oil] 1,000 mg (120 mg-180 mg) Capsule 1,000 mg PO Q OTHER DAY Qty: 0 RF: 0 metformin 850 mg Tablet 850 mg PO BID RF: 0 alendronate 35 mg Tablet 35 mg PO QWEEK RF: 0 Ca carb-Ca gluc-Mg ox-Mg gluco [Calcium Magnesium] 500 mg calcium -250 mg Tablet 1 tab PO Q OTHER DAY RF: 0
[2018-09-05 22:56] LABS: Add Manual Diff / Slide Review NO; Basophils Percent Auto 0.6 % (0-2); Eosinophils Percent Auto 0.6 % (2-4); Hematocrit 35.7 % (36-46); Hemoglobin 11.5 g/dL (12.0-16.0); Lymphocytes Percent Auto 12.2 % (25-40); Mean Corpuscular HGB Conc 32.2 % (30-36); Mean Corpuscular Hemoglobin 25.8 PG (26-34); Monocytes Percent Auto 4.1 % (3-14); Neutrophils Absolute Auto 8600 /uL (3000-5900); Neutrophils Percent Auto 82.5 % (50-75); Platelet Count 265 X10^3/uL (150-400); Red Blood Cell Count 4.47 X10^6/uL (4.0-5.2); Red Cell Distribution Width 15.5 % (11.6-14.8); White Blood Cell Count 10.4 X10^3/uL (4.5-11.0)
[2018-09-05 23:02] LABS: Alanine Aminotransferase 31 IU/L (9-52); Albumin 4.4 g/dL (3.5-5.0); Albumin Globulin Ratio 1.6 (1.0-2.8); Alkaline Phosphatase 78 U/L (38-126); Aspartate Aminotransferase 23 IU/L (14-36); BUN Creatinine Ratio 32.9 (6-22); Bilirubin Total 0.3 mg/dL (0.2-1.3); Blood Urea Nitrogen 23 mg/dL (7-17); Calcium 9.6 mg/dL (8.4-10.2); Carbon Dioxide 26 mmol/L (22-32); Chloride 100 mmol/L (98-107); Estimated Glomerular Filt Rate > 60.0 mL/min (>60); Globulin 2.8 g/dL (1.7-4.1); Glucose 177 mg/dL (80-110); HEMOLYSIS < 15 (0-50); Lipase 124 U/L (23-300); Potassium 4.1 mmol/L (3.4-5.1); Sodium 139 mmol/L (137-145); Total Protein 7.2 g/dL (6.3-8.2)
--- NOTE | 2018-09-05 23:11 | PC.NURSE ---
pt declines IV at this time
[2018-09-06 00:04] VITALS: BP 119/54; PULSE 76; RESP 18; O2SAT 97
== END 2018-09-06 00:05 | disposition home or self-care (01) ==
PROVIDERS: Emergency Provider Emergency Medicine; Family Provider Internal Medicine; PCP Internal Medicine
DX: R10.9 Unspecified abdominal pain (principal)
CPT/HCPCS: 36415; 74022; 80053; 83690; 85025; 99282; 99284

== ENCOUNTER 2018-11-15 06:11 | Inpatient (IN) | payer OTHER, SELFPAY ==
[2018-11-15] VITALS (8 sets, daily range): BP systolic 110–163; BP diastolic 56–77; PULSE 55–64; RESP 16–20; TEMP 36.6–37; O2SAT 95–100; BMI 30.7
--- NOTE | 2018-11-15 06:32 | ED_ITS ---
HPI - Abdominal Pain <Avery Ramsey, DO - Last Filed: 11/15/18 18:15> General Chief Complaint: Abdominal Pain Stated Complaint: nausea vomiting abd pain since thursday Time Seen by Provider: 11/15/18 06:12 Source: patient Mode of arrival: ambulatory Limitations: no limitations History of Present Illness HPI narrative: Patient is a 77-year-old female here for evaluation of abdominal pain nausea vomiting diarrhea. She states that her symptoms started approximately 24 hr ago. She states that the pain comes and goes and she does have periods of time where she is not in any discomfort. Has not had anything to eat or drink since yesterday morning because of the discomfort and the nausea that she gets whenever she tries to eat anything. 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 She also has had a history of bowel obstructions after this not requiring surgical intervention. She states this somewhat feels like her prior bowel obstruction. No urinary symptoms. Has not tried anything for this prior to arrival Related Data Home Medications Medication Instructions Recorded Confirmed aspirin [Aspirin Low Dose] 81 mg PO Q OTHER DAY #0 03/03/11 11/15/18 cholecalciferol (vitamin D3) 2,000 unit PO Q OTHER DAY #0 03/03/11 11/15/18 [Vitamin D3] ascorbic acid (vitamin C) 500 mg PO DAILY #0 05/20/13 11/15/18 vitamin B complex 1 cap PO DAILY #0 05/20/13 11/15/18 amlodipine 10 mg PO DAILY #0 12/25/17 11/15/18 atorvastatin [Lipitor] 10 mg PO DAILY #0 12/25/17 11/15/18 losartan 100 mg PO DAILY #0 12/25/17 11/15/18 metoprolol succinate 50 mg PO DAILY #0 12/25/17 11/15/18 vitamin A 1 cap PO DAILY #0 12/25/17 11/15/18 alendronate 35 mg PO QWEEK 08/15/18 11/15/18 metformin 850 mg PO BID 08/15/18 11/15/18 diphenhydramine HCl [Benadryl 25 mg PO Q8H PRN 11/15/18 11/15/18 Allergy] esomeprazole magnesium [Nexium] 40 mg PO Q OTHER DAY 11/15/18 11/15/18 ibuprofen 200 mg PO TID PRN 11/15/18 11/15/18 lorazepam 0.5 mg PO BID PRN 11/15/18 11/15/18 Allergies Allergy/AdvReac Type Severity Reaction Status Date / Time No Known Drug Allergies Allergy Verified 09/05/18 21:34 Review of Systems <Avery Ramsey DO - Last Filed: 11/15/18 18:15> Constitutional Denies fever(s) and Denies headache(s) ENT Ears, Nose, Mouth, and Throat: Denies headache(s) Cardiovascular Denies chest pain and Denies dyspnea Respiratory Denies dyspnea Gastrointestinal Gastrointestinal: Reports abdominal pain, Denies cramping, Reports diarrhea, Denies nausea and Denies vomiting Genitourinary Denies dysuria Musculoskeletal Denies back pain, Denies myalgias and Denies arthralgias Integumentary/Breasts Denies rash Neurologic Denies headache(s) Hematologic/Lymphatic Denies easy bleeding and Denies easy bruising Comments: Not on anticoagulation Exam <Avery Ramsey DO - Last Filed: 11/15/18 18:15> Initial Vital Signs Initial Vital Signs: Vital Signs Temperature 98.6 F 11/15/18 06:26 Pulse Rate 64 11/15/18 06:26 Respiratory Rate 16 11/15/18 06:26 Blood Pressure 137/72 11/15/18 06:26 Pulse Oximetry 100 11/15/18 06:26 Const General: cooperative, well developed, well groomed and No acute distress Orientation: alert, awake and oriented x3 HENMT Head: normal to inspection and normocephalic Resp Effort & Inspection: normal respiratory effort Auscultation: clear to auscultation bilaterally Cardio Rate: regular rate Rhythm: regular rhythm Pulses: radial pulses present GI Inspection: non-distended Palpation: soft, No firm and tender (Epigastric region) Skin Lesions: no lesions Rashes: no rashes Neuro General: alert, awake and oriented x3 Extrem General: normal to inspection and capillary refill normal Psych Appearance: grossly normal and well kempt <Emilee Geiger, DO - Last Filed: 11/15/18 09:46> Initial Vital Signs Initial Vital Signs: Vital Signs Temperature 98.6 F 11/15/18 06:26 Pulse Rate 64 11/15/18 06:26 Respiratory Rate 16 11/15/18 06:26 Blood Pressure 137/72 11/15/18 06:26 Pulse Oximetry 100 11/15/18 06:26 Course <Avery Ramsey DO - Last Filed: 11/15/18 18:15> Orders Ordered: ED Orders 11/15/18 11:20 Lactate 4HR (Lactic Acid Rflx) Stat 11/16/18 XR acute abdomen series Routine Amlodipine Besylate (Norvasc) 10 mg PO DAILY CAROLINE Diphenhydramine HCl (Benadryl) 25 mg IV Q4HR PRN PRN Reason: Itching Dextrose/Lactated Ringer's (Dextrose 5%-Lactated Ringers) 1,000 mls @ 84 mls/ hr IV CONT CAROLINE Last Admin: 11/15/18 16:26 Dose: 84 mls/hr Morphine Sulfate (Morphine) 1 mg IV Q2HR PRN PRN Reason: Pain, Moderate (4-6) Ondansetron HCl (Zofran) 4 mg IV Q2HR PRN PRN Reason: Nausea Last Admin: 11/15/18 10:14 Dose: 4 mg Admin: 11/15/18 07:06 Dose: 4 mg Ondansetron HCl (Zofran) 4 mg IV Q4HR PRN PRN Reason: Nausea And Vomiting Pantoprazole Sodium (Protonix) 20 mg IV BID CAROLINE Discontinued Medications Sodium Chloride (Normal Saline 0.9%) 1,000 mls @ 1,000 mls/hr IV BOLUS ONE Stop: 11/15/18 07:31 Last Infusion: 11/15/18 07:55 Dose: 0 mls/hr Admin: 11/15/18 07:06 Dose: 1,000 mls/hr Morphine Sulfate (Morphine) 2 mg IV NOW ONE Stop: 11/15/18 07:39 Last Admin: 11/15/18 07:52 Dose: 2 mg Morphine Sulfate (Morphine) 2 mg IV NOW ONE Stop: 11/15/18 10:15 Last Admin: 11/15/18 10:16 Dose: 2 mg Vital Signs - 8 hr 11/15/18 10:33 11/15/18 10:45 11/15/18 16:24 Temperature 97.9 F 98.1 F Pulse Rate 64 58 L 56 L Respiratory Rate 18 18 19 Blood Pressure 144/64 H 119/77 Blood Pressure [Left Arm] 131/56 L Pulse Oximetry 96 98 97 <Emilee Botnick, DO - Last Filed: 11/15/18 09:46> Orders Ordered: ED Orders 11/15/18 11:20 Lactate 4HR (Lactic Acid Rflx) Stat 11/16/18 XR acute abdomen series Routine Amlodipine Besylate (Norvasc) 10 mg PO DAILY CAROLINE Diphenhydramine HCl (Benadryl) 25 mg IV Q4HR PRN PRN Reason: Itching Dextrose/Lactated Ringer's (Dextrose 5%-Lactated Ringers) 1,000 mls @ 84 mls/ hr IV CONT CAROLINE Last Admin: 11/15/18 16:26 Dose: 84 mls/hr Morphine Sulfate (Morphine) 1 mg IV Q2HR PRN PRN Reason: Pain, Moderate (4-6) Ondansetron HCl (Zofran) 4 mg IV Q2HR PRN PRN Reason: Nausea Last Admin: 11/15/18 10:14 Dose: 4 mg Admin: 11/15/18 07:06 Dose: 4 mg Ondansetron HCl (Zofran) 4 mg IV Q4HR PRN PRN Reason: Nausea And Vomiting Pantoprazole Sodium (Protonix) 20 mg IV BID CAROLINE Discontinued Medications Sodium Chloride (Normal Saline 0.9%) 1,000 mls @ 1,000 mls/hr IV BOLUS ONE Stop: 11/15/18 07:31 Last Infusion: 11/15/18 07:55 Dose: 0 mls/hr Admin: 11/15/18 07:06 Dose: 1,000 mls/hr Morphine Sulfate (Morphine) 2 mg IV NOW ONE Stop: 11/15/18 07:39 Last Admin: 11/15/18 07:52 Dose: 2 mg Morphine Sulfate (Morphine) 2 mg IV NOW ONE Stop: 11/15/18 10:15 Last Admin: 11/15/18 10:16 Dose: 2 mg Vital Signs - 8 hr 11/15/18 10:33 11/15/18 10:45 11/15/18 16:24 Temperature 97.9 F 98.1 F Pulse Rate 64 58 L 56 L Respiratory Rate 18 18 19 Blood Pressure 144/64 H 119/77 Blood Pressure [Left Arm] 131/56 L Pulse Oximetry 96 98 97 MDM - Abdominal Pain <Avery Ramsey DO - Last Filed: 11/15/18 18:15> Lab Data Result diagrams: 11/15/18 06:56 11/15/18 06:56 Lab Results 11/15/18 11/15/18 11/15/18 Range/Units 06:56 06:56 06:56 WBC 7.7 (4.5-11.0) X10^3/uL RBC 4.87 (4.0-5.2) X10^6/uL Hgb 12.3 (12.0-16.0) g/dL Hct 38.1 (36-46) % MCV 78.2 L (80-100) fL MCH 25.2 L (26-34) PG MCHC 32.3 (30-36) % RDW 16.2 H (11.6-14.8) % Plt Count 274 (150-400) X10^3/uL Neut % (Auto) 78.4 H (50-75) % Lymph % (Auto) 14.7 L (25-40) % [place] % (Auto) 6.2 (3-14) % Eos % (Auto) 0.2 L (2-4) % Baso % (Auto) 0.5 (0-2) % Neut # (Auto) 6000 (5552-5290) /uL Sodium 138 (137-145) mmol/L Potassium 3.6 (3.4-5.1) mmol/L Chloride 98 (98-107) mmol/L Carbon Dioxide 25 (22-32) mmol/L BUN 17 (7-17) mg/dL Creatinine 0.80 (0.52-1.04) mg/dL Estimated GFR > 60.0 (>60) mL/min BUN/Creatinine Ratio 21.3 (6-22) Glucose 166 H (80-110) mg/dL Lactate 2.8 H (0.7-2.1) mmol/L Calcium 9.8 (8.4-10.2) mg/dL Total Bilirubin 0.6 (0.2-1.3) mg/dL AST 24 (14-36) IU/L ALT 28 (9-52) IU/L Alkaline Phosphatase 82 (38-126) U/L Total Protein 7.7 (6.3-8.2) g/dL Albumin 4.6 (3.5-5.0) g/dL Globulin 3.1 (1.7-4.1) g/dL Albumin/Globulin Ratio 1.5 (1.0-2.8) Lipase 112 (23-300) U/L 11/15/18 Range/Units 11:20 WBC (4.5-11.0) X10^3/uL RBC (4.0-5.2) X10^6/uL Hgb (12.0-16.0) g/dL Hct (36-46) % MCV (80-100) fL MCH (26-34) PG MCHC (30-36) % RDW (11.6-14.8) % Plt Count (150-400) X10^3/uL Neut % (Auto) (50-75) % Lymph % (Auto) (25-40) % [place] % (Auto) (3-14) % Eos % (Auto) (2-4) % Baso % (Auto) (0-2) % Neut # (Auto) (0704-8295) /uL Sodium (137-145) mmol/L Potassium (3.4-5.1) mmol/L Chloride (98-107) mmol/L Carbon Dioxide (22-32) mmol/L BUN (7-17) mg/dL Creatinine (0.52-1.04) mg/dL Estimated GFR (>60) mL/min BUN/Creatinine Ratio (6-22) Glucose (80-110) mg/dL Lactate 2.0 (0.7-2.1) mmol/L Calcium (8.4-10.2) mg/dL Total Bilirubin (0.2-1.3) mg/dL AST (14-36) IU/L ALT (9-52) IU/L Alkaline Phosphatase (38-126) U/L Total Protein (6.3-8.2) g/dL Albumin (3.5-5.0) g/dL Globulin (1.7-4.1) g/dL Albumin/Globulin Ratio (1.0-2.8) Lipase (23-300) U/L Point of care testing: Urine Dip Bedside Urine Glucose Negative Bedside Urine Bilirubin - Negative Bedside Urine Ketone - Negative Urine Specific [place] 1.010 Bedside Urine Occult Blood - Negative Bedside Urine pH 6.0 Bedside Urine Protein - Negative Bedside Urine Urobilinogen - Negative Bedside Urine Nitrite - Negative Bedside Urine Leukocytes - Negative Esterase MDM Narrative Medical decision making narrative: Patient with a history of a 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 She states that this somewhat feels like her prior symptoms. Labs and CT scan with IV and oral contrast ordered. Care turned over to day provider at change of shift to follow up with labs and CT scan and ultimate disposition. <Emilee Geiger, DO - Last Filed: 11/15/18 09:46> Lab Data Attestation: I reviewed the patient's lab results. Lab Results 11/15/18 11/15/18 11/15/18 Range/Units 06:56 06:56 06:56 WBC 7.7 (4.5-11.0) X10^3/uL RBC 4.87 (4.0-5.2) X10^6/uL Hgb 12.3 (12.0-16.0) g/dL Hct 38.1 (36-46) % MCV 78.2 L (80-100) fL MCH 25.2 L (26-34) PG MCHC 32.3 (30-36) % RDW 16.2 H (11.6-14.8) % Plt Count 274 (150-400) X10^3/uL Neut % (Auto) 78.4 H (50-75) % Lymph % (Auto) 14.7 L (25-40) % [place] % (Auto) 6.2 (3-14) % Eos % (Auto) 0.2 L (2-4) % Baso % (Auto) 0.5 (0-2) % Neut # (Auto) 6000 (2322-0545) /uL Sodium 138 (137-145) mmol/L Potassium 3.6 (3.4-5.1) mmol/L Chloride 98 (98-107) mmol/L Carbon Dioxide 25 (22-32) mmol/L BUN 17 (7-17) mg/dL Creatinine 0.80 (0.52-1.04) mg/dL Estimated GFR > 60.0 (>60) mL/min BUN/Creatinine Ratio 21.3 (6-22) Glucose 166 H (80-110) mg/dL Lactate 2.8 H (0.7-2.1) mmol/L Calcium 9.8 (8.4-10.2) mg/dL Total Bilirubin 0.6 (0.2-1.3) mg/dL AST 24 (14-36) IU/L ALT 28 (9-52) IU/L Alkaline Phosphatase 82 (38-126) U/L Total Protein 7.7 (6.3-8.2) g/dL Albumin 4.6 (3.5-5.0) g/dL Globulin 3.1 (1.7-4.1) g/dL Albumin/Globulin Ratio 1.5 (1.0-2.8) Lipase 112 (23-300) U/L 11/15/18 Range/Units 11:20 WBC (4.5-11.0) X10^3/uL RBC (4.0-5.2) X10^6/uL Hgb (12.0-16.0) g/dL Hct (36-46) % MCV (80-100) fL MCH (26-34) PG MCHC (30-36) % RDW (11.6-14.8) % Plt Count (150-400) X10^3/uL Neut % (Auto) (50-75) % Lymph % (Auto) (25-40) % [place] % (Auto) (3-14) % Eos % (Auto) (2-4) % Baso % (Auto) (0-2) % Neut # (Auto) (7389-8155) /uL Sodium (137-145) mmol/L Potassium (3.4-5.1) mmol/L Chloride (98-107) mmol/L Carbon Dioxide (22-32) mmol/L BUN (7-17) mg/dL Creatinine (0.52-1.04) mg/dL Estimated GFR (>60) mL/min BUN/Creatinine Ratio (6-22) Glucose (80-110) mg/dL Lactate 2.0 (0.7-2.1) mmol/L Calcium (8.4-10.2) mg/dL Total Bilirubin (0.2-1.3) mg/dL AST (14-36) IU/L ALT (9-52) IU/L Alkaline Phosphatase (38-126) U/L Total Protein (6.3-8.2) g/dL Albumin (3.5-5.0) g/dL Globulin (1.7-4.1) g/dL Albumin/Globulin Ratio (1.0-2.8) Lipase (23-300) U/L Point of care testing: Urine Dip Bedside Urine Glucose Negative Bedside Urine Bilirubin - Negative Bedside Urine Ketone - Negative Urine Specific [place] 1.010 Bedside Urine Occult Blood - Negative Bedside Urine pH 6.0 Bedside Urine Protein - Negative Bedside Urine Urobilinogen - Negative Bedside Urine Nitrite - Negative Bedside Urine Leukocytes - Negative Esterase Imaging Data CT scan - abdomen: Radiologist's impression: PROCEDURE: CT ABDOMEN PELVIS W CON INDICATIONS: abdominal pain hx of obstruction TECHNIQUE: After the administration of oral and intravenous contrast, 5 mm thick sections acquired from the diaphragms to the symphysis. 5 mm thick coronal and sagittal reformats were performed. For radiation dose reduction, the following was used: automated exposure control, adjustment of mA and/or kV according to patient size. COMPARISON: Located Within [facility], CT, CT ABDOMEN PELVIS WO CON, 04/08/2018, 13:14. Located Within [facility], CR, XR ACUTE ABDOMEN SERIES, 09/05/2018, 22:02. Located Within [facility], CT, CT ABDOMEN PELVIS W CON, 08/15/2018, 14:37. FINDINGS: Image quality: Excellent. ABDOMEN: Lung bases: Lung bases are clear. Heart size is normal. A small hiatal hernia is incidentally noted. Solid organs: Liver is normal in size and enhancement. Diffuse fatty liver infiltration is noted. Gallbladder wall does not appear thickened. Biliary system is non- dilated. Pancreas enhances normally. Spleen is normal in size and enhancement. Incidental note is made of an accessory spleen along the hilum of the primary spleen. No adrenal nodules. Kidneys are normal in size and enhancement, without hydronephrosis. Nonobstructing bilateral renal stones are seen, which measure approximately 2 mm. Subcentimeter presumed cysts are seen within both kidneys. 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 Peritoneum and bowel: Postoperative change can be seen, with anastomotic staple lines within the distal small bowel. At the postoperative site within the mid lower abdomen, there is a small bowel obstruction seen, as on series 2 image 56. There are dilated loops of small bowel leading up to this site that measure up to 3.3 cm, with decompressed small bowel seen distal to this site. The colon is relatively decompressed. Diverticulosis is seen, without findings of active diverticulitis. No free air can be seen. Nodes and vessels: No retroperitoneal or mesenteric adenopathy. Aorta and inferior vena cava are normal in caliber. Miscellaneous: No ventral hernias. PELVIS: Genitourinary: Bladder wall thickness is normal. This patient is status post hysterectomy. No adnexal masses are seen. Miscellaneous: No inguinal hernias or adenopathy. Bones: No suspicious bony lesions. No vertebral body compression fractures. IMPRESSION: There is a small bowel obstruction seen at a site of prior small bowel resection within the mid abdomen. The appearance is similar to the 08/15/18 CT examination. A small amount of free intraperitoneal fluid can be seen. 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 Dictated by: Driss Acevedo M.D. on 11/15/2018 at 7:58 MDM Narrative Medical decision making narrative: Received sign-out from caustic cresylate shift superintendent provider. Patient seen evaluated by myself. Now complaining more pain. Pain seems to be waxing and waning. She is mildly tender in her umbilicus area with hyperactive bowel sounds. Currently drinking contrast. She does have slightly elevated lactic acid. Waiting for CT to rule out obstruction. CT confirms small bowel obstruction. She no longer vomiting pain has improve much with morphine. I spoke with Dr. Sutton, she agrees to admission. Discharge Plan Departure Patient Disposition: Admitted As Inpatient Clinical Impression: Small bowel obstruction Discharge Date/Time: 11/15/18 10:37 Interventions: ED Discharge Assessment Last Done: 11/15/18 10:37 Admit Date/Time: 11/15/18 09:31 Admit Provider: Ashly Sutton
[2018-11-15] MEDS: SODIUM CHLORIDE 0.9% 1,000 ML 1000 ML IV (07:06)
[2018-11-15] MEDS: ONDANSETRON 4 MG/2 ML INJ IV ×2 (07:06→10:14)
[2018-11-15 07:09] LABS: Add Manual Diff / Slide Review NO; Basophils Percent Auto 0.5 % (0-2); Eosinophils Percent Auto 0.2 % (2-4); Hematocrit 38.1 % (36-46); Hemoglobin 12.3 g/dL (12.0-16.0); Lymphocytes Percent Auto 14.7 % (25-40); Mean Corpuscular HGB Conc 32.3 % (30-36); Mean Corpuscular Hemoglobin 25.2 PG (26-34); Mean Corpuscular Volume 78.2 fL (80-100); Monocytes Percent Auto 6.2 % (3-14); Neutrophils Absolute Auto 6000 /uL (1500-7000); Neutrophils Percent Auto 78.4 % (50-75); Platelet Count 274 X10^3/uL (150-400); Red Blood Cell Count 4.87 X10^6/uL (4.0-5.2); Red Cell Distribution Width 16.2 % (11.6-14.8); White Blood Cell Count 7.7 X10^3/uL (4.5-11.0)
[2018-11-15 07:19] LABS: Alanine Aminotransferase 28 IU/L (9-52); Albumin 4.6 g/dL (3.5-5.0); Albumin Globulin Ratio 1.5 (1.0-2.8); Alkaline Phosphatase 82 U/L (38-126); Aspartate Aminotransferase 24 IU/L (14-36); BUN Creatinine Ratio 21.3 (6-22); Bilirubin Total 0.6 mg/dL (0.2-1.3); Blood Urea Nitrogen 17 mg/dL (7-17); Calcium 9.8 mg/dL (8.4-10.2); Carbon Dioxide 25 mmol/L (22-32); Chloride 98 mmol/L (98-107); Estimated Glomerular Filt Rate > 60.0 mL/min (>60); Globulin 3.1 g/dL (1.7-4.1); Glucose 166 mg/dL (80-110); HEMOLYSIS < 15 (0-50); Lactate (Lactic Acid) 2.8 mmol/L (0.7-2.1); Lipase 112 U/L (23-300); Potassium 3.6 mmol/L (3.4-5.1); Sodium 138 mmol/L (137-145); Total Protein 7.7 g/dL (6.3-8.2)
--- NOTE | 2018-11-15 07:36 | DI.CT.S_ITS ---
PROCEDURE: CT ABDOMEN PELVIS W CON INDICATIONS: abdominal pain hx of obstruction TECHNIQUE: After the administration of oral and intravenous contrast, 5 mm thick sections acquired from the diaphragms to the symphysis. 5 mm thick coronal and sagittal reformats were performed. For radiation dose reduction, the following was used: automated exposure control, adjustment of mA and/or kV according to patient size. COMPARISON: [facility], CT, CT ABDOMEN PELVIS WO CON, 04/08/2018, 13:14. [facility], CR, XR ACUTE ABDOMEN SERIES, 09/05/2018, 22:02. [facility], CT, CT ABDOMEN PELVIS W CON, 08/15/2018, 14:37. FINDINGS: Image quality: Excellent. ABDOMEN: Lung bases: Lung bases are clear. Heart size is normal. A small hiatal hernia is incidentally noted. Solid organs: Liver is normal in size and enhancement. Diffuse fatty liver infiltration is noted. Gallbladder wall does not appear thickened. Biliary system is non-dilated. Pancreas enhances normally. Spleen is normal in size and enhancement. Incidental note is made of an accessory spleen along the hilum of the primary spleen. No adrenal nodules. Kidneys are normal in size and enhancement, without hydronephrosis. Nonobstructing bilateral renal stones are seen, which measure approximately 2 mm. Subcentimeter presumed cysts are seen within both kidneys. 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 Peritoneum and bowel: Postoperative change can be seen, with anastomotic staple lines within the distal small bowel. At the postoperative site within the mid lower abdomen, there is a small bowel obstruction seen, as on series 2 image 56. There are dilated loops of small bowel leading up to this site that measure up to 3.3 cm, with decompressed small bowel seen distal to this site. The colon is relatively decompressed. Diverticulosis is seen, without findings of active diverticulitis. No free air can be seen. Nodes and vessels: No retroperitoneal or mesenteric adenopathy. Aorta and inferior vena cava are normal in caliber. Miscellaneous: No ventral hernias. PELVIS: Genitourinary: Bladder wall thickness is normal. This patient is status post hysterectomy. No adnexal masses are seen. Miscellaneous: No inguinal hernias or adenopathy. Bones: No suspicious bony lesions. No vertebral body compression fractures. IMPRESSION: There is a small bowel obstruction seen at a site of prior small bowel resection within the mid abdomen. The appearance is similar to the 08/15/18 CT examination. A small amount of free intraperitoneal fluid can be seen. 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 Dictated by: Driss Acevedo M.D. on 11/15/2018 at 7:58 Approved by: Driss Acevedo M.D. on 11/15/2018 at 8:05
[2018-11-15] MEDS: MORPHINE 2 MG/ML INJ IV ×2 (07:52→10:16)
[2018-11-15 11:05] LABS: Reflexed Lactate in 2 Hours Y
--- NOTE | 2018-11-15 11:46 | PC.NURSE ---
Patient arrived from ER to room 219. Oriented to room and call light. VSS. Patient states pain has decreased from an 8/10 in ER to a 1 or 2 now in Upper mid abdomen, tender to touch, comes and goes now. Laying in bed, calm and cooperative, talkative. Denies nausea at this time. at bedside. Awaiting to be seen by Dr. Sutton. Patient educated on NPO status. Bed alarm activated for safety, call light placed within reach. Patient agrees to call to get out of bed.
--- NOTE | 2018-11-15 15:38 | PM.HP.1 ---
History of Present Illness Date Patient Seen: 11/15/18 Time Patient Seen: 15:38 Chief complaint: nausea vomiting abd pain since thursday Narrative: Very pleasant 77-year-old lady who is well known to me from prior visits. I last saw her in August when she was admitted overnight for small bowel obstruction. By the time I saw her the morning after admission, her pain had resolved and she was experiencing normal bowel function. She reports that this pain began yesterday morning. She has been off of her metformin for a little while due to inconvenience with traveling and so forth. She started at yesterday and she says whenever she starts back on it she knows that she will have ?GI stuff?. She started at 850 mg twice a day. She reports that she developed nausea and vomiting and crampy abdominal pain shortly after starting the medicine. It continued through today. She actually came to our emergency room yesterday evening but by the time she got to the parking lot, her pain resolved and so she turned around and went home. She came back early this morning with recurrence of symptoms. She says the pain is kind of an ache that comes and goes. She tells me that after she was admitted to the hospital last August, she saw Dr. Nav Motta again and had upper and lower endoscopy and capsule endoscopy. She tells me that she received a call saying that the pictures stopped at the level of the anastomosis and she required an abdominal x-ray to be sure that the capsule had actually passed. No capsule was seen on the film and so it was presumed that she had passed it. She has not had any symptoms since that time. She has also been evaluated with urine [address] scans. She currently has no evidence of any recurrent or metastatic neuroendocrine tumor. At the present time, Charlene reports that her pain has essentially resolved. She says she still feels a little bit of a heaviness or an ache when her abdomen is pushed on just above the belly button. She has not passed any flatus since yesterday. She denies any fever or recent sick contacts that she is aware of. Patient History Medical History Neuroendocrine tumor (Acute) Surgical History History of bowel resection (Acute) Family & Social History Family History: Reviewed 11/15/18 by Ashly Sutton MD Social History: household members spouse Safety & Behavioral: Feels Safe in Current Yes Environment Been Physically Hurt or No Threatened By a Person Suicidal Ideation Description None Tobacco & Substance use: Smoking Status Never smoker alcohol intake frequency a few times a month Substance Use Type does not use Meds Home Medications Medication Instructions Recorded Confirmed Type aspirin [Aspirin Low Dose] 81 mg PO Q OTHER DAY #0 03/03/11 11/15/18 History cholecalciferol (vitamin D3) 2,000 unit PO Q OTHER DAY #0 03/03/11 11/15/18 History [Vitamin D3] ascorbic acid (vitamin C) 500 mg PO DAILY #0 05/20/13 11/15/18 History vitamin B complex 1 cap PO DAILY #0 05/20/13 11/15/18 History amlodipine 10 mg PO DAILY #0 12/25/17 11/15/18 History atorvastatin [Lipitor] 10 mg PO DAILY #0 12/25/17 11/15/18 History losartan 100 mg PO DAILY #0 12/25/17 11/15/18 History metoprolol succinate 50 mg PO DAILY #0 12/25/17 11/15/18 History vitamin A 1 cap PO DAILY #0 12/25/17 11/15/18 History alendronate 35 mg PO QWEEK 08/15/18 11/15/18 History metformin 850 mg PO BID 08/15/18 11/15/18 History diphenhydramine HCl [Benadryl 25 mg PO Q8H PRN 11/15/18 11/15/18 History Allergy] esomeprazole magnesium [Nexium] 40 mg PO Q OTHER DAY 11/15/18 11/15/18 History ibuprofen 200 mg PO TID PRN 11/15/18 11/15/18 History lorazepam 0.5 mg PO BID PRN 11/15/18 11/15/18 History Allergies Allergy/AdvReac Type Severity Reaction Status Date / Time No Known Drug Allergies Allergy Verified 09/05/18 21:34 Review of Systems Review of Systems All systems reviewed & are unremarkable except as noted in HPI and below Exam Vital Signs (past 8 hours): - 11/15/18 08:56 11/15/18 09:26 11/15/18 10:33 Temperature Pulse Rate 64 62 64 Respiratory Rate 18 18 18 Blood Pressure Blood Pressure [Left Arm] 163/71 H 129/62 131/56 L Pulse Oximetry 100 98 96 11/15/18 10:45 Temperature 97.9 F Pulse Rate 58 L Respiratory Rate 18 Blood Pressure 144/64 H Blood Pressure [Left Arm] Pulse Oximetry 98 Oxygen Delivery Method Room Air Oxygen Flow Rate 0 Narrative Exam Narrative: Very pleasant, well-nourished, and well-developed 77-year-old lady who is in no obvious distress. She is accompanied today by her who taught anatomy and physiology at the college level. HEENT: Normocephalic and atraumatic, pupils are equal round and reactive to light accommodation with anicteric sclera Lungs: Clear to auscultation bilaterally, no wheezing Heart: Regular rate and rhythm without murmur rub or gallop Abdomen: Soft, active bowel sounds. Well-healed laparoscopic incisions. Tender to palpation about 3 cm above the umbilicus in the midline. No rebound or voluntary guarding. No tenderness in the remainder of the abdomen. Extremities: Warm and well perfused and without edema. Objective Labs Result Diagrams: 11/15/18 06:56 11/15/18 06:56 Labs: Laboratory Results - last 24 hr 11/15/18 11/15/18 11/15/18 06:56 06:56 06:56 WBC 7.7 RBC 4.87 Hgb 12.3 Hct 38.1 MCV 78.2 L MCH 25.2 L MCHC 32.3 RDW 16.2 H Plt Count 274 Neut % (Auto) 78.4 H Lymph % (Auto) 14.7 L [place] % (Auto) 6.2 Eos % (Auto) 0.2 L Baso % (Auto) 0.5 Neut # (Auto) 6000 Sodium 138 Potassium 3.6 Chloride 98 Carbon Dioxide 25 BUN 17 Creatinine 0.80 Estimated GFR > 60.0 BUN/Creatinine Ratio 21.3 Glucose 166 H Lactate 2.8 H Calcium 9.8 Total Bilirubin 0.6 AST 24 ALT 28 Alkaline Phosphatase 82 Total Protein 7.7 Albumin 4.6 Globulin 3.1 Albumin/Globulin Ratio 1.5 Lipase 112 11/15/18 11:20 WBC RBC Hgb Hct MCV MCH MCHC RDW Plt Count Neut % (Auto) Lymph % (Auto) [place] % (Auto) Eos % (Auto) Baso % (Auto) Neut # (Auto) Sodium Potassium Chloride Carbon Dioxide BUN Creatinine Estimated GFR BUN/Creatinine Ratio Glucose Lactate 2.0 Calcium Total Bilirubin AST ALT Alkaline Phosphatase Total Protein Albumin Globulin Albumin/Globulin Ratio Lipase [address] [address] [address] Scan Report Signed Patient: Charlene Henson MR#: [id number] : 1940 Acct:[id number] Age/Sex: 77 / F Date of Service: 11/15/18 Loc: ED Accession Number: [id number] Procedure: CT abdomen pelvis w con Ordering Provider: Avery Ramsey D.O. PROCEDURE: CT ABDOMEN PELVIS W CON INDICATIONS: abdominal pain hx of obstruction TECHNIQUE: After the administration of oral and intravenous contrast, 5 mm thick sections acquired from the diaphragms to the symphysis. 5 mm thick coronal and sagittal reformats were performed. For radiation dose reduction, the following was used: automated exposure control, adjustment of mA and/or kV according to patient size. COMPARISON: [facility], CT, CT ABDOMEN PELVIS WO CON, 04/08/2018, 13:14. [facility], CR, XR ACUTE ABDOMEN SERIES, 09/05/2018, 22:02. [facility], CT, CT ABDOMEN PELVIS W CON, 08/15/2018, 14:37. FINDINGS: Image quality: Excellent. ABDOMEN: Lung bases: Lung bases are clear. Heart size is normal. A small hiatal hernia is incidentally noted. Solid organs: Liver is normal in size and enhancement. Diffuse fatty liver infiltration is noted. Gallbladder wall does not appear thickened. Biliary system is non-dilated. Pancreas enhances normally. Spleen is normal in size and enhancement. Incidental note is made of an accessory spleen along the hilum of the primary spleen. No adrenal nodules. Kidneys are normal in size and enhancement, without hydronephrosis. Nonobstructing bilateral renal stones are seen, which measure approximately 2 mm. Subcentimeter presumed cysts are seen within both kidneys. 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 Peritoneum and bowel: Postoperative change can be seen, with anastomotic staple lines within the distal small bowel. At the postoperative site within the mid lower abdomen, there is a small bowel obstruction seen, as on series 2 image 56. There are dilated loops of small bowel leading up to this site that measure up to 3.3 cm, with decompressed small bowel seen distal to this site. The colon is relatively decompressed. Diverticulosis is seen, without findings of active diverticulitis. No free air can be seen. Nodes and vessels: No retroperitoneal or mesenteric adenopathy. Aorta and inferior vena cava are normal in caliber. Miscellaneous: No ventral hernias. PELVIS: Genitourinary: Bladder wall thickness is normal. This patient is status post hysterectomy. No adnexal masses are seen. Miscellaneous: No inguinal hernias or adenopathy. Bones: No suspicious bony lesions. No vertebral body compression fractures. IMPRESSION: There is a small bowel obstruction seen at a site of prior small bowel resection within the mid abdomen. The appearance is similar to the 08/15/18 CT examination. A small amount of free intraperitoneal fluid can be seen. 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 Dictated by: Driss Acevedo M.D. on 11/15/2018 at 7:58 Approved by: Driss Acevedo M.D. on 11/15/2018 at 8:05 Assessment & Plan Plan: Assessment/Plan Narrative: Wonderful 77-year-old lady with a personal history of a neuroendocrine tumor that was removed with small bowel resection. She has been followed carefully by Oncology and has done really well. This is her 2nd episode bowel obstruction with a CT looks remarkably similar to the study done in August of 2018. As her pain has now resolved, it is difficult for me to recommend surgery immediately. I recommended that we keep her here with IV fluids and bowel rest. We will do a acute abdominal series in the morning and look especially diligently for any sort of capsule that could be left over from capsule endoscopy. If she does not improve significantly overnight, I think we have to seriously consider operative intervention.
--- NOTE | 2018-11-15 15:44 | P.HP_ITS ---
History of Present Illness Date Patient Seen: 11/15/18 Time Patient Seen: 15:38 Chief complaint: nausea vomiting abd pain since thursday Narrative: Very pleasant 77-year-old lady who is well known to me from prior visits. I last saw her in August when she was admitted overnight for small bowel obstruction. By the time I saw her the morning after admission, her pain had resolved and she was experiencing normal bowel function. She reports that this pain began yesterday morning. She has been off of her metformin for a little while due to inconvenience with traveling and so forth. She started at yesterday and she says whenever she starts back on it she knows that she will have ?GI stuff?. She started at 850 mg twice a day. She reports that she developed nausea and vomiting and crampy abdominal pain shortly after starting the medicine. It continued through today. She actually came to our emergency room yesterday evening but by the time she got to the parking lot, her pain resolved and so she turned around and went home. She came back early this morning with recurrence of symptoms. She says the pain is kind of an ache that comes and goes. She tells me that after she was admitted to the hospital last August, she saw Dr. Nav Motta again and had upper and lower endoscopy and capsule endoscopy. She tells me that she received a call saying that the pictures stopped at the level of the anastomosis and she required an abdominal x -ray to be sure that the capsule had actually passed. No capsule was seen on the film and so it was presumed that she had passed it. She has not had any symptoms since that time. She has also been evaluated with urine [address] scans. She currently has no evidence of any recurrent or metastatic neuroendocrine tumor. At the present time, Charlene reports that her pain has essentially resolved. She says she still feels a little bit of a heaviness or an ache when her abdomen is pushed on just above the belly button. She has not passed any flatus since yesterday. She denies any fever or recent sick contacts that she is aware of. Patient History Medical History Neuroendocrine tumor (Acute) Surgical History History of bowel resection (Acute) Family & Social History Family History: Reviewed 11/15/18 by Ashly Sutton MD Social History: household members spouse Safety & Behavioral: Feels Safe in Current Yes Environment Been Physically Hurt or No Threatened By a Person Suicidal Ideation Description None Tobacco & Substance use: Smoking Status Never smoker alcohol intake frequency a few times a month Substance Use Type does not use Meds Home Medications Medication Instructions Recorded Confirmed Type aspirin [Aspirin Low Dose] 81 mg PO Q OTHER DAY #0 03/03/11 11/15/18 History cholecalciferol (vitamin D3) 2,000 unit PO Q OTHER DAY #0 03/03/11 11/15/18 History [Vitamin D3] ascorbic acid (vitamin C) 500 mg PO DAILY #0 05/20/13 11/15/18 History vitamin B complex 1 cap PO DAILY #0 05/20/13 11/15/18 History amlodipine 10 mg PO DAILY #0 12/25/17 11/15/18 History atorvastatin [Lipitor] 10 mg PO DAILY #0 12/25/17 11/15/18 History losartan 100 mg PO DAILY #0 12/25/17 11/15/18 History metoprolol succinate 50 mg PO DAILY #0 12/25/17 11/15/18 History vitamin A 1 cap PO DAILY #0 12/25/17 11/15/18 History alendronate 35 mg PO QWEEK 08/15/18 11/15/18 History metformin 850 mg PO BID 08/15/18 11/15/18 History diphenhydramine HCl [Benadryl 25 mg PO Q8H PRN 11/15/18 11/15/18 History Allergy] esomeprazole magnesium [Nexium] 40 mg PO Q OTHER DAY 11/15/18 11/15/18 History ibuprofen 200 mg PO TID PRN 11/15/18 11/15/18 History lorazepam 0.5 mg PO BID PRN 11/15/18 11/15/18 History Allergies Allergy/AdvReac Type Severity Reaction Status Date / Time No Known Drug Allergies Allergy Verified 09/05/18 21:34 Review of Systems Review of Systems All systems reviewed & are unremarkable except as noted in HPI and below Exam Vital Signs (past 8 hours): - 11/15/18 08:56 11/15/18 09:26 11/15/18 10:33 Temperature Pulse Rate 64 62 64 Respiratory Rate 18 18 18 Blood Pressure Blood Pressure [Left Arm] 163/71 H 129/62 131/56 L Pulse Oximetry 100 98 96 11/15/18 10:45 Temperature 97.9 F Pulse Rate 58 L Respiratory Rate 18 Blood Pressure 144/64 H Blood Pressure [Left Arm] Pulse Oximetry 98 Oxygen Delivery Method Room Air Oxygen Flow Rate 0 Narrative Exam Narrative: Very pleasant, well-nourished, and well-developed 77-year-old lady who is in no obvious distress. She is accompanied today by her who taught anatomy and physiology at the college level. HEENT: Normocephalic and atraumatic, pupils are equal round and reactive to light accommodation with anicteric sclera Lungs: Clear to auscultation bilaterally, no wheezing Heart: Regular rate and rhythm without murmur rub or gallop Abdomen: Soft, active bowel sounds. Well-healed laparoscopic incisions. Tender to palpation about 3 cm above the umbilicus in the midline. No rebound or voluntary guarding. No tenderness in the remainder of the abdomen. Extremities: Warm and well perfused and without edema. Objective Labs Result Diagrams: 11/15/18 06:56 11/15/18 06:56 Labs: Laboratory Results - last 24 hr 11/15/18 11/15/18 11/15/18 06:56 06:56 06:56 WBC 7.7 RBC 4.87 Hgb 12.3 Hct 38.1 MCV 78.2 L MCH 25.2 L MCHC 32.3 RDW 16.2 H Plt Count 274 Neut % (Auto) 78.4 H Lymph % (Auto) 14.7 L [place] % (Auto) 6.2 Eos % (Auto) 0.2 L Baso % (Auto) 0.5 Neut # (Auto) 6000 Sodium 138 Potassium 3.6 Chloride 98 Carbon Dioxide 25 BUN 17 Creatinine 0.80 Estimated GFR > 60.0 BUN/Creatinine Ratio 21.3 Glucose 166 H Lactate 2.8 H Calcium 9.8 Total Bilirubin 0.6 AST 24 ALT 28 Alkaline Phosphatase 82 Total Protein 7.7 Albumin 4.6 Globulin 3.1 Albumin/Globulin Ratio 1.5 Lipase 112 11/15/18 11:20 WBC RBC Hgb Hct MCV MCH MCHC RDW Plt Count Neut % (Auto) Lymph % (Auto) [place] % (Auto) Eos % (Auto) Baso % (Auto) Neut # (Auto) Sodium Potassium Chloride Carbon Dioxide BUN Creatinine Estimated GFR BUN/Creatinine Ratio Glucose Lactate 2.0 Calcium Total Bilirubin AST ALT Alkaline Phosphatase Total Protein Albumin Globulin Albumin/Globulin Ratio Lipase [address] [address] [address] Scan Report Signed Patient: Charlene Henson MR#: [id number] : 1940 Acct:[id number] Age/Sex: 77 / F Date of Service: 11/15/18 Loc: ED Accession Number: [id number] Procedure: CT abdomen pelvis w con Ordering Provider: Avery Ramsey D.O. PROCEDURE: CT ABDOMEN PELVIS W CON INDICATIONS: abdominal pain hx of obstruction TECHNIQUE: After the administration of oral and intravenous contrast, 5 mm thick sections acquired from the diaphragms to the symphysis. 5 mm thick coronal and sagittal reformats were performed. For radiation dose reduction, the following was used: automated exposure control, adjustment of mA and/or kV according to patient size. COMPARISON: , CT, CT ABDOMEN PELVIS WO CON, 04/08/2018, 13:14. , CR, XR ACUTE ABDOMEN SERIES, 09/05/2018, 22:02. , CT, CT ABDOMEN PELVIS W CON, 08/15/2018, 14:37. FINDINGS: Image quality: Excellent. ABDOMEN: Lung bases: Lung bases are clear. Heart size is normal. A small hiatal hernia is incidentally noted. Solid organs: Liver is normal in size and enhancement. Diffuse fatty liver infiltration is noted. Gallbladder wall does not appear thickened. Biliary system is non- dilated. Pancreas enhances normally. Spleen is normal in size and enhancement. Incidental note is made of an accessory spleen along the hilum of the primary spleen. No adrenal nodules. Kidneys are normal in size and enhancement, without hydronephrosis. Nonobstructing bilateral renal stones are seen, which measure approximately 2 mm. Subcentimeter presumed cysts are seen within both kidneys. 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 Peritoneum and bowel: Postoperative change can be seen, with anastomotic staple lines within the distal small bowel. At the postoperative site within the mid lower abdomen, there is a small bowel obstruction seen, as on series 2 image 56. There are dilated loops of small bowel leading up to this site that measure up to 3.3 cm, with decompressed small bowel seen distal to this site. The colon is relatively decompressed. Diverticulosis is seen, without findings of active diverticulitis. No free air can be seen. Nodes and vessels: No retroperitoneal or mesenteric adenopathy. Aorta and inferior vena cava are normal in caliber. Miscellaneous: No ventral hernias. PELVIS: Genitourinary: Bladder wall thickness is normal. This patient is status post hysterectomy. No adnexal masses are seen. Miscellaneous: No inguinal hernias or adenopathy. Bones: No suspicious bony lesions. No vertebral body compression fractures. IMPRESSION: There is a small bowel obstruction seen at a site of prior small bowel resection within the mid abdomen. The appearance is similar to the 08/15/18 CT examination. A small amount of free intraperitoneal fluid can be seen. 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 Dictated by: Driss Acevedo M.D. on 11/15/2018 at 7:58 Approved by: Driss Acevedo M.D. on 11/15/2018 at 8:05 Assessment & Plan Plan: Assessment/Plan Narrative: Wonderful 77-year-old lady with a personal history of a neuroendocrine tumor that was removed with small bowel resection. She has been followed carefully by Oncology and has done really well. This is her 2nd episode bowel obstruction with a CT looks remarkably similar to the study done in August of 2018. As her pain has now resolved, it is difficult for me to recommend surgery immediately. I recommended that we keep her here with IV fluids and bowel rest. We will do a acute abdominal series in the morning and look especially diligently for any sort of capsule that could be left over from capsule endoscopy. If she does not improve significantly overnight, I think we have to seriously consider operative intervention.
[2018-11-15] MEDS: DEXTROSE 5%-LACTATED RINGERS 1,000 ML 84 ML IV (16:26)
[2018-11-15] MEDS: PANTOPRAZOLE 40 MG VIAL 20 MG IV (20:15)
--- NOTE | 2018-11-16 | DI.RAD.S_ITS ---
PROCEDURE: XR ACUTE ABDOMEN SERIES INDICATIONS: Small-bowel obstruction TECHNIQUE: One view chest and two views of the abdomen were acquired. COMPARISON: [facility], CT, CT ABDOMEN PELVIS W CON, 11/15/2018, 8:09. [facility], CR, XR ACUTE ABDOMEN SERIES, 09/05/2018, 22:02. FINDINGS: Surgical changes and devices: Suture material projects over the pelvis. Chest: Mild bibasilar linear opacities consistent with atelectasis. There is prominence of the pulmonary vasculature. Heart size is normal. No pleural effusions. No pneumoperitoneum. Abdomen: Radiopaque contrast is identified within colon. Multiple dilated loops of small bowel with air-fluid levels are noted. Bones: Mild multilevel degenerative changes of the spine. IMPRESSION: Multiple loops of dilated small bowel with air-fluid levels, compatible with the known small bowel obstruction seen on comparison CT of 11/15/18. Presence of radiopaque oral contrast within the colon suggests that the site of obstruction may be partial and not complete. Attention on followup abdominal radiographs recommended. Dictated by: Leon Reynolds M.D. on 11/16/2018 at 10:05 Approved by: Leon Reynolds M.D. on 11/16/2018 at 10:15
--- NOTE | 2018-11-16 01:23 | PC.NURSE ---
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 IV in place in lt forearm. D5LR infusing at 84cc/hr. Pt states that she is having intermittent cramping pain in abdomen, states she does not need pain medication for this but wanted Dr. Sutton to know. Pt denies nausea at this time.
[2018-11-16 02:13] VITALS: BP 112/68; PULSE 62; RESP 17; TEMP 36.8; O2SAT 94
[2018-11-16] MEDS: DEXTROSE 5%-LACTATED RINGERS 1,000 ML 84 ML IV (04:48)
[2018-11-16 05:17] VITALS: BP 124/73; PULSE 58; RESP 16; TEMP 36.7; O2SAT 95
[2018-11-16 07:15] VITALS: BP 128/43; PULSE 59; RESP 18; TEMP 36.7; O2SAT 97
[2018-11-16] MEDS: PANTOPRAZOLE 40 MG VIAL 20 MG IV ×2 (08:19→21:11)
[2018-11-16 12:00] VITALS: BP 121/60; PULSE 52; RESP 16; TEMP 36.4; O2SAT 97
--- NOTE | 2018-11-16 12:13 | CM.DANOTE ---
Discharge Planning/Care Management CM Discharge Assessment Start: 11/16/18 12:07 Freq: Status: Active Protocol: Document 11/16/18 12:07 (Rec: 11/16/18 12:12 [id number]) Discharge Planning Assessment Assigned Loan Interviewer KAUR Stevenson Advance Directives? Yes History Provided By Patient Significant Other Medical Record Prior Living Arrangements House Household Members spouse Type of transporation used prior to Drives own vehicle admit Independent with ADL's Yes Is patient alert and oriented? Yes Caregiver for Another No Comment patient's goal is to discharge home. Comment Patient currently NPO. Dr. Sutton did complete consult and no surg recommended at this time. Patient is hopeful to discharge home and does not anticipate any discharge needs . Barriers to Discharge No Discharge Plan Home Transportation Arrangement Spouse Referrals Initiated None needed Additional Comment Will continue to follow for any possible needs or concerns . Inpatient Status as of 11/16/18 Whiteboard Updated in Patient Room with Yes name and ext. # of Loan Interviewer Please Provide Date Initial DC 11/16/18 Assessment Was Performed
--- NOTE | 2018-11-16 13:10 | PM.PN.1 ---
Subjective Date Patient Seen: 11/16/18 Time Patient Seen: 13:10 Interval history: Charlene is feeling much better this morning. She has been walking the halls and says she has had no abdominal pain whatsoever. She has passed a great deal of flatus. She is quite hungry. Exam Vital Signs (past 8 hours): - 11/16/18 05:17 11/16/18 07:15 Temperature 98.1 F 98.0 F Pulse Rate 58 L 59 L Respiratory Rate 16 18 Blood Pressure 124/73 128/43 L Pulse Oximetry 95 97 Oxygen Delivery Method Room Air Oxygen Flow Rate 0 Narrative Exam Narrative: The patient is sitting dressed and sitting in a chair at the bedside and looks very comfortable. Lungs: Clear bilaterally Heart: Regular rate and rhythm without murmur Abdomen: Soft, minimal tenderness to palpation in the epigastrium. No rebound or guarding. No heel tap a Rovsing sign. Active bowel sounds. Extremities: Warm and well perfused without edema. Objective Labs Result Diagrams: 11/15/18 06:56 11/15/18 06:56 Labs: [address] [address] XRay Report Signed Patient: Charlene Henson MR#: [id number] : 1940 Acct:[id number] Age/Sex: 77 / F Date of Service: 11/16/18 Loc: 219-1 Accession Number: [id number] Procedure: XR acute abdomen series Ordering Provider: Ashly Sutton MD PROCEDURE: XR ACUTE ABDOMEN SERIES INDICATIONS: Small-bowel obstruction TECHNIQUE: One view chest and two views of the abdomen were acquired. COMPARISON: [facility], CT, CT ABDOMEN PELVIS W CON, 11/15/2018, 8:09. [facility], CR, XR ACUTE ABDOMEN SERIES, 09/05/2018, 22:02. FINDINGS: Surgical changes and devices: Suture material projects over the pelvis. Chest: Mild bibasilar linear opacities consistent with atelectasis. There is prominence of the pulmonary vasculature. Heart size is normal. No pleural effusions. No pneumoperitoneum. Abdomen: Radiopaque contrast is identified within colon. Multiple dilated loops of small bowel with air-fluid levels are noted. Bones: Mild multilevel degenerative changes of the spine. IMPRESSION: Multiple loops of dilated small bowel with air-fluid levels, compatible with the known small bowel obstruction seen on comparison CT of 11/15/18. Presence of radiopaque oral contrast within the colon suggests that the site of obstruction may be partial and not complete. Attention on followup abdominal radiographs recommended. Dictated by: Leon Reynolds M.D. on 11/16/2018 at 10:05 Approved by: Leon Reynolds M.D. on 11/16/2018 at 10:15 Assessment & Plan Plan: Assessment/Plan Narrative: Significant clinical improvement overnight. We talked about the appearance of her films today. There is no pill endoscopy device visible so the opening her bowels at least large enough to permit passage of that pill. She would like to try eating and see how it goes. She would very much like to avoid surgery if it is at all possible. We talked about the fact that if the obstructive symptoms should recur, we should proceed to the operating room.
--- NOTE | 2018-11-16 15:20 | PC.NURSE ---
1430 Pt up in chair, Has been ambulating in halls several times this shift. Pt denies abd pain, states is passing gas, voiding w/o diff. Pt had mech soft diet today, is norberto well. IVF cont.
[2018-11-16 15:30] VITALS: BP 106/77; PULSE 55; RESP 17; TEMP 36.4; O2SAT 96
--- NOTE | 2018-11-16 18:49 | PC.NURSE ---
Pt denies pain and nausea but does report mild abdominal cramping, tolerating diet; bowel tones present in all 4 quadrants; LS clear, O2 RA=99%; in room; call light within reach
[2018-11-16 19:30] VITALS: BP 103/65; PULSE 58; RESP 18; TEMP 36.6; O2SAT 96
[2018-11-17 00:45] VITALS: BP 134/73; PULSE 64; RESP 18; TEMP 36.8; O2SAT 96
[2018-11-17 06:11] VITALS: BP 113/62; PULSE 58; RESP 16; TEMP 36.6; O2SAT 95
[2018-11-17] MEDS: PANTOPRAZOLE 40 MG VIAL 20 MG IV (09:49)
--- NOTE | 2018-11-17 11:25 | P.DS_ITS ---
History of Present Illness Chief complaint: nausea vomiting abd pain since thursday Narrative: Very pleasant 77-year-old lady who is well known to me from prior visits. I last saw her in August when she was admitted overnight for small bowel obstruction. By the time I saw her the morning after admission, her pain had resolved and she was experiencing normal bowel function. She reports that this pain began yesterday morning. She has been off of her metformin for a little while due to inconvenience with traveling and so forth. She started at yesterday and she says whenever she starts back on it she knows that she will have ?GI stuff?. She started at 850 mg twice a day. She reports that she developed nausea and vomiting and crampy abdominal pain shortly after starting the medicine. It continued through today. She actually came to our emergency room yesterday evening but by the time she got to the parking lot, her pain resolved and so she turned around and went home. She came back early this morning with recurrence of symptoms. She says the pain is kind of an ache that comes and goes. She tells me that after she was admitted to the hospital last August, she saw Dr. Nav Motta again and had upper and lower endoscopy and capsule endoscopy. She tells me that she received a call saying that the pictures stopped at the level of the anastomosis and she required an abdominal x -ray to be sure that the capsule had actually passed. No capsule was seen on the film and so it was presumed that she had passed it. She has not had any symptoms since that time. She has also been evaluated with urine [address] scans. She currently has no evidence of any recurrent or metastatic neuroendocrine tumor. At the present time, Charlene reports that her pain has essentially resolved. She says she still feels a little bit of a heaviness or an ache when her abdomen is pushed on just above the belly button. She has not passed any flatus since yesterday. She denies any fever or recent sick contacts that she is aware of. Discharge Providers Date of admission: 11/16/18 08:37 Primary care physician: Jyoti Prasad MD Discharge provider: Ashly Sutton MD Discharge Date: 11/17/18 Summary Discharge Diagnosis: Partial small bowel obstruction Hospital Course: Charlene was admitted and placed on bowel rest. She did not have an NG tube placed and she was not vomiting by the time she reached the hospital. By the time I saw her on the 1st day of admission, her pain had essentially resolved but she was still feeling a bit sore. We continued bowel rest overnight and her pain did not return. She began passing flatus shortly thereafter and her symptoms resolved. We talked about the recurrent nature of this problem. She very likely has a narrowed area at the site of the anastomosis. It is obviously large enough to permit the passage of a pill endoscope. As her symptoms have resolved, we did not proceed to the operating room. If this recurs again, this will need to be our course of action. She is discharged home to the care of her . We will see her back as needed. Status at Discharge Cognitive/behavioral status at discharge: Normal Functional status at discharge: independent ambulation Overall status at discharge: patient is back to baseline Time Spent with Patient Less than 30 minutes Exam Vital Signs (past 8 hours): - 11/17/18 06:11 Temperature 97.9 F Pulse Rate 58 L Respiratory Rate 16 Blood Pressure 113/62 Pulse Oximetry 95 Oxygen Delivery Method Room Air Oxygen Flow Rate 0 Objective Labs Result Diagrams: 11/15/18 06:56 11/15/18 06:56 Discharge Plan Discharge Plan Patient Disposition: Home Discharge Med Rec/Prescriptions Prescriptions: Continue aspirin [Aspirin Low Dose] 81 mg Tablet,Delayed Release (Dr/Ec) 81 mg PO Q OTHER DAY Qty: 0 RF: 0 cholecalciferol (vitamin D3) [Vitamin D3] 2,000 unit Capsule 2,000 unit PO Q OTHER DAY Qty: 0 RF: 0 ascorbic acid (vitamin C) 500 MG tablet 500 mg PO DAILY Qty: 0 RF: 0 vitamin B complex Capsule 1 cap PO DAILY Qty: 0 RF: 0 amlodipine 10 MG tablet 10 mg PO DAILY Qty: 0 RF: 0 atorvastatin [Lipitor] 10 MG tablet 10 mg PO DAILY Qty: 0 RF: 0 losartan 100 MG tablet 100 mg PO DAILY Qty: 0 RF: 0 metoprolol succinate 50 MG tablet extended release 24 hr 50 mg PO DAILY Qty: 0 RF: 0 vitamin A 10,000 unit Capsule 1 cap PO DAILY Qty: 0 RF: 0 metformin 850 mg Tablet 850 mg PO BID RF: 0 alendronate 35 mg Tablet 35 mg PO QWEEK RF: 0 lorazepam 0.5 mg tablet 0.5 mg PO BID PRN (Reason: Anxiety) RF: 0 esomeprazole magnesium [Nexium] 40 mg Capsule,Delayed Release(Dr/Ec) 40 mg PO Q OTHER DAY RF: 0 diphenhydramine HCl [Benadryl Allergy] 25 mg Tablet 25 mg PO Q8H PRN (Reason: Allergy Symptoms) RF: 0 ibuprofen 200 mg Tablet 200 mg PO TID PRN (Reason: pain) RF: 0 Follow up/Referrals: Jyoti Prasad MD [Primary Care Provider] - Provider Discharge Instructions Diet: Diet as Tolerated Skin/Wound/Dressing Care Report to your healthcare provider any signs of infection, such as:: increased pain Visit Report/Discharge Packet Instructions: DI for Small Bowel Obstruction Visit Report Forms: Stroke Signs & Symptoms Discharge Data Primary Care Provider: Jyoti Prasad Attending Provider: Ashly Sutton Admit Date/Time: 11/16/18 08:37
== END 2018-11-17 11:32 | disposition home or self-care (01) | DRG 390 ==
LOC: ED 09:26 → AC 11:30
PROVIDERS: Emergency Medicine; Admitting Provider Surgery; Emergency Provider Emergency Medicine; Family Provider Internal Medicine; PCP Internal Medicine; Visit Provider Surgery
DX: K56.690 Other partial intestinal obstruction (principal)
CPT/HCPCS: 36415; 36591; 74022; 74177; 80053; 81003; 82962; 83605; 83690; 85025; 96360; 96374; 96375; 96376; 99222; 99231; 99238; 99283; 99285; G0378; C9113; J2270; J2405; J7121; Q9967

== ENCOUNTER → 2019-06-20 13:31 | Outpatient (CLI) | payer OTHER, SELFPAY ==
[2018-11-15 11:00] VITALS: BMI 30.7
--- NOTE | 2019-06-20 15:04 | PM.TREADMILL ---
Cardiac Stress Test Report Referral & Results Date Patient Seen: 06/20/19 Requesting provider: Jyoti Prasad Indication: Chest pain Rest ECG: Unremarkable Procedure Note: Today following both written and verbal informed consent the patient was exercised according to a standard Tyler protocol patient went for a total of 5 minutes 27 seconds achieving a maximum heart rate of 149 maximum systolic blood pressure of 162. This is approximately 7.0 METS. Exercise was terminated at this point because of targets were met. Patient was also given Cardiolite through a previously started Hep-Lock IV by the diagnostic imaging staff approximately 1 minute prior to the cessation of exercise. No ST-T segment changes Rare PVC Functional aerobic impairment rated-10% on the active scale or 10% better than average Impression: No ECG evidence of ischemia Excellent exercise capacity Please see perfusion imaging report as well Please note: Actual ECG tracings can be found in the PACS system.
--- NOTE | 2019-06-21 17:29 | DI.NM.S_ITS ---
DATE OF SERVICE: 06/20/2019 PROCEDURE: Exercise perfusion study. INDICATIONS: Chest pain with underlying diabetes mellitus, hypertension, hyperlipidemia. RADIOPHARMACEUTICAL: 26.1 mCi technetium-99m Myoview IV was injected at stress and 26.4 mCi technetium-99m Myoview IV was injected at rest. CARDIAC STRESS: Patient underwent exercise perfusion study under the supervision of an attending staff. She walked on Tyler protocol for 5 minutes 20 seconds and achieved 105% of target heart rate. There was normal blood pressure response. No significant symptoms were reported. . Baseline rhythm was sinus. Stress EKG did not reveal any convincing ischemic changes. There were no significant arrhythmias. Rare PVCs were seen. RAW DATA: There was adequate myocardial uptake. GATED STUDY: Stress LV ejection fraction 85% and resting LV ejection fraction 83%. No obvious wall motion abnormalities. Resting end-diastolic volume is 77 mL. No transient ischemic dilatation. TID ratio is 0.87, which is within normal limits. Lung/heart ratio is 0.23, which is within normal limits. MYOCARDIAL PERFUSION SCAN: Stress supine, resting supine, and stress prone images revealed normal myocardial perfusion. CONCLUSION: This is a normal myocardial perfusion study. Overall, this is a low-risk myocardial perfusion scan. Charlene Henson - JERO/ashley/ doc#: [id number]/job#: [id number] dd: 06/21/2019 16:34:00 dt: 06/21/2019 17:19:00 DICTATING /COPIES TO: Jayjay Palma MD COPIES MNE: JAMES
== END ==
PROVIDERS: Family Provider Internal Medicine; PCP Internal Medicine; Visit Provider Internal Medicine
DX: R07.9 Chest pain, unspecified (principal)
CPT/HCPCS: 78452; 93016; 93017; 93018; A9502

== ENCOUNTER → 2019-10-14 08:24 | Outpatient (CLI) | payer OTHER, SELFPAY ==
[2018-11-15 11:00] VITALS: BMI 30.7
[2019-10-14 08:55] LABS: Add Manual Diff / Slide Review NO; Basophils Absolute Auto 0 /uL (0-100); Basophils Percent Auto 0.9 % (0-2); Eosinophils Absolute Auto 100 /uL (0-450); Hematocrit 33.2 % (36-46); Hemoglobin 10.6 g/dL (12.0-16.0); Lymphocytes Absolute Auto 2000 /uL (1100-4500); Lymphocytes Percent Auto 40.6 % (25-40); Mean Corpuscular Hemoglobin 24.7 PG (26-34); Mean Corpuscular Volume 77.2 fL (80-100); Monocytes Absolute Auto 300 /uL (0-900); Monocytes Percent Auto 6.7 % (3-14); Neutrophils Absolute Auto 2400 /uL (1500-7000); Neutrophils Percent Auto 49.8 % (50-75); Platelet Count 283 X10^3/uL (150-400); Red Cell Distribution Width 17.4 % (11.6-14.8); White Blood Cell Count 4.9 X10^3/uL (4.5-11.0)
[2019-10-14 09:47] LABS: Alanine Aminotransferase 21 IU/L (<35); Aspartate Aminotransferase 27 IU/L (14-36); Cholesterol 190 mg/dL (140-199); HDL Cholesterol 64 mg/dL (40-60); LDL Cholesterol Calculated 100 mg/dL (<100); Triglycerides 131 mg/dL (35-150)
[2019-10-14 09:52] LABS: Hemoglobin A1C% w Est Avg Glu 7.2 % (4.0-6.0)
[2019-10-14 10:36] LABS: Vitamin B12 567 pg/mL (239-931)
== END ==
PROVIDERS: PCP Internal Medicine; Visit Provider Internal Medicine
DX: E78.5 Hyperlipidemia, unspecified (principal); D51.0 Vitamin B12 deficiency anemia due to intrinsic factor deficiency; E11.9 Type 2 diabetes mellitus without complications
CPT/HCPCS: 36415; 80061; 82607; 83036; 84450; 84460; 85025

== ENCOUNTER → 2019-11-05 13:50 | Outpatient (CLI) | payer OTHER, SELFPAY ==
[2018-11-15 11:00] VITALS: BMI 30.7
--- NOTE | 2019-11-05 | DI.MG.S_ITS ---
BILATERAL DIGITAL SCREENING MAMMOGRAM 3D/2D WITH CAD: 11/05/2019 CLINICAL: Routine screening. Family history of breast cancer. Comparison is made to exams dated: 04/03/2018 mammogram, 04/17/2016 mammogram, and 09/14/2014 mammogram - [facility]. The tissue of both breasts is heterogeneously dense. This may lower the sensitivity of mammography. Current study was also evaluated with a Computer Aided Detection (CAD) system. No significant masses, calcifications, or other findings are seen in either breast. There has been no significant interval change. IMPRESSION: NEGATIVE There is no mammographic evidence of malignancy. A 1 year screening mammogram is recommended. This exam was interpreted at Station ID: [id number]. NOTE: For mammograms, a report in lay terms will be sent to the patient. Approximately 15% of breast malignancies will not be visualized mammographically. In the management of a palpable breast mass, a negative mammogram must not discourage biopsy of a clinically suspicious lesion. Electronically Signed By: Bear vega/kamilla:11/07/2019 08:08:21 copy to: MARK SAUNDERS letter sent: Normal Exam ACR BI-RADS Category 1: Negative 3341F
== END ==
PROVIDERS: PCP Internal Medicine; Visit Provider Internal Medicine
DX: Z12.31 Encounter for screening mammogram for malignant neoplasm of breast (principal); Z80.3 Family history of malignant neoplasm of breast
CPT/HCPCS: 77063; 77067

== ENCOUNTER → 2019-11-30 09:16 | Outpatient (CLI) | payer OTHER, SELFPAY ==
[2018-11-15 11:00] VITALS: BMI 30.7
--- NOTE | 2019-11-30 | DI.RAD.S_ITS ---
PROCEDURE: XR CHEST 2V INDICATIONS: cough TECHNIQUE: 2 views of the chest were acquired. COMPARISON: [facility], CHEST FOR PICC PLACEMENT, 01/26/2018, 16:55. [facility], CHEST 2 VIEW, 06/02/2017, 12:17. FINDINGS: Surgical changes and devices: None. Lungs and pleura: Lungs are clear. No pleural effusions or pneumothorax. Mediastinum: Mediastinal contours are normal. Heart size is normal. Bones and chest wall: No suspicious bony abnormalities. Soft tissues appear unremarkable. IMPRESSION: Normal for age, source of current cough symptoms is not seen. Dictated by: Mack Irizarry M.D. on 11/30/2019 at 9:37 Approved by: Mack Irizarry M.D. on 11/30/2019 at 9:38
== END ==
PROVIDERS: PCP Internal Medicine; Visit Provider Internal Medicine
DX: R05 Cough (principal)
CPT/HCPCS: 71046

== ENCOUNTER → 2019-12-16 11:54 | Outpatient (CLI) | payer OTHER, SELFPAY ==
[2018-11-15 11:00] VITALS: BMI 30.7
--- NOTE | 2019-12-16 12:08 | DIET.PN ---
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 Pt raised [employer] as [id number]. Now avoids only shellfish and pork. Pt hospitalized 5 times with SBO in past 2y. Most recent in 10/27 was a total blockage thought to have been caused by steak nachos eaten at a friend's home. Pt has several low-fiber diet handouts which don't exactly match and wants clarification based on her actual condition. Nutrition Diagnosis: poor nutrition quality of life r/t knowledge deficit of diet appropriate for longterm management of neuroendocrine tumor risk aeb pt eating restrictive diet of no whole grains, limited fruit/veg c no skins, no beans/legumes/nuts. Interventions: 1. Discussed fiber, soluble vs. insoluble, what to look for that can cause obstruction. 2. Went through comprehensive list of yes/sometimes/no foods [id number]. Monitoring/Evaluations: f/u if SBO occurs
== END ==
PROVIDERS: PCP Internal Medicine; Referring Provider Internal Medicine; Visit Provider Internal Medicine
DX: K56.609 Unspecified intestinal obstruction, unspecified as to partial versus complete obstruction (principal); E34.8 Other specified endocrine disorders; Z71.3 Dietary counseling and surveillance
CPT/HCPCS: 97802

== ENCOUNTER → 2020-08-31 14:06 | Outpatient (CLI) | payer OTHER, SELFPAY ==
[2018-11-15 11:00] VITALS: BMI 30.7
[2020-09-01 19:19] LABS: COVID19 Sendout Not Detected (Not Detect)
== END ==
PROVIDERS: PCP Internal Medicine; Visit Provider Physician Assistant
DX: Z03.818 Encounter for observation for suspected exposure to other biological agents ruled out (principal)
CPT/HCPCS: 87635

== ENCOUNTER → 2020-12-05 10:09 | Outpatient (CLI) | payer OTHER, SELFPAY ==
[2018-11-15 11:00] VITALS: BMI 30.7
--- NOTE | 2020-12-05 | DI.MG.S_ITS ---
BILATERAL DIGITAL SCREENING MAMMOGRAM 3D/2D WITH CAD: 12/05/2020 CLINICAL: Routine screening. Family history of breast cancer. Comparison is made to exams dated: 11/05/2019 mammogram, 04/03/2018 mammogram, and 04/17/2016 mammogram - [facility]. The tissue of both breasts is heterogeneously dense. This may lower the sensitivity of mammography. Current study was also evaluated with a Computer Aided Detection (CAD) system. No significant masses, calcifications, or other findings are seen in either breast. There has been no significant interval change. IMPRESSION: NEGATIVE There is no mammographic evidence of malignancy. A 1 year screening mammogram is recommended. This exam was interpreted at Station ID: [id number]. NOTE: For mammograms, a report in lay terms will be sent to the patient. Approximately 15% of breast malignancies will not be visualized mammographically. In the management of a palpable breast mass, a negative mammogram must not discourage biopsy of a clinically suspicious lesion. Electronically Signed By: Eric Mcneal M.D., jr/kamilla:12/05/2020 12:49:21 copy to: Nav Motta letter sent: Normal Exam ACR BI-RADS Category 1: Negative 3341F
== END ==
PROVIDERS: PCP Internal Medicine; Referring Provider Internal Medicine; Visit Provider Internal Medicine
DX: Z12.31 Encounter for screening mammogram for malignant neoplasm of breast (principal); Z80.3 Family history of malignant neoplasm of breast
CPT/HCPCS: 77063; 77067

== ENCOUNTER → 2024-01-06 11:43 | Outpatient (CLI) | payer OTHER, SELFPAY ==
[2018-11-15 11:00] VITALS: BMI 30.7
--- NOTE | 2024-01-06 11:49 | DI.RAD.S_ITS ---
PROCEDURE: XR CHEST 2V INDICATIONS: RIGHT SIDED CHEST PAIN TECHNIQUE: 2 views of the chest were acquired. COMPARISON: [facility], , XR CHEST 2V, 11/30/2019, 9:14. [facility], , CHEST FOR PICC PLACEMENT, 01/26/2018, 16:55. FINDINGS: Surgical changes and devices: None. Lungs and pleura: Lungs are clear. No pleural effusions or pneumothorax. Mediastinum: Mediastinal contours are normal. Slightly enlarged cardiac silhouette, more enlarged than on prior study Bones and chest wall: Anterior compression deformity mid/lower thoracic vertebral body with approximately 90% height loss of unknown chronicity, but new since prior x-ray chest on 11/30/2019. IMPRESSION: 1. Progressive enlargement of the cardiac silhouette since prior study in 2019 2. Anterior compression deformity of midthoracic vertebral body is of unknown chronicity , but new since 2019 X-ray of the chest Dictated by: Daljit Crowe M.D. on 01/06/2024 at 16:00 Approved by: Daljit Crowe M.D. on 01/06/2024 at 16:09
== END ==
PROVIDERS: PCP Internal Medicine; Referring Provider Internal Medicine; Visit Provider Internal Medicine
DX: R07.9 Chest pain, unspecified (principal); M43.8X4 Other specified deforming dorsopathies, thoracic region
CPT/HCPCS: 71046

== ENCOUNTER 2024-03-22 13:40 | Observation (INO) | payer OTHER, SELFPAY ==
[2018-11-15 11:00] VITALS: BMI 30.7
[2024-03-22] VITALS (13 sets, daily range): BP systolic 161–197; BP diastolic 71–92; PULSE 62–69; RESP 16–22; TEMP 36.6; O2SAT 92–98; BMI 32.9
--- NOTE | 2024-03-22 13:56 | DI.CT.S_ITS ---
PROCEDURE: CT ABDOMEN PELVIS W CON INDICATIONS: RUQ, upper abdominal pain TECHNIQUE: After the administration of intravenous contrast, axial sections acquired from the lung bases to the pubic symphysis. Coronal and sagittal reformats were performed. For radiation dose reduction, the following was used: automated exposure control, adjustment of mA and/or kV according to patient size. COMPARISON: [facility], CR, XR LUMBAR SPINE 2 OR 3 VIEWS, 11/04/2022, 11:45. [facility], CT, CT ABDOMEN PELVIS W CON, 11/15/2018, 8:09. FINDINGS: Image quality: Diagnostic. Lower Chest: There are small bilateral low-density pleural effusions and compressive atelectasis at the right lung base. The heart is markedly enlarged. There is a small hiatal hernia. ABDOMEN: Liver: The left hepatic lobe is partially resected. No solid mass. A subcentimeter cystic lesion is present in the right hepatic lobe. Gallbladder: The gallbladder is moderately dilated. No stones or wall thickening. No pericholecystic fluid. Biliary ducts: No biliary dilation. Pancreas: No ductal dilation. Spleen: Size is within normal limits. A splenule is present at the hilum. Adrenal Glands: No adrenal nodules. Kidneys and Ureters: No hydronephrosis. No solid mass. No complex renal cystic lesion which requires follow up. Low-density cortical cystic lesions are present bilaterally. 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 A nonobstructing 2 mm calculus is present in the right kidney. Stomach and Bowel: Normal colonic caliber, without significant wall thickening. There appears to be a small appendiceal stump which is thin walled and gas-filled. There are scattered sigmoid diverticula. No evidence for diverticulitis. Peritoneum: No abnormal intraperitoneal fluid. No free air. Ventral Wall: No significant ventral hernia. Abdominal Nodes: No retroperitoneal or mesenteric adenopathy by size criteria. Vessels: Aorta and inferior vena cava are normal in size. PELVIS: Pelvic Organs: Unremarkable. Bladder: No bladder wall thickening, accounting for underdistention. Pelvic Nodes: No enlarged lymph nodes. Miscellaneous: No inguinal hernias are seen. Bones: A severe compression deformity is redemonstrated at L1, similar to the study dated November 04, 2022. There has been interval inferior endplate compression deformity at L4 when compared with the plain film from November 04, 2022. However the acuity of this finding is unknown. IMPRESSION: 1. Distended gallbladder without wall thickening or pericholecystic fluid. Finding is equivocal for acute cholecystitis. If further characterization is warranted, right upper quadrant ultrasound could be used. 2. Severe compression deformity at L1 similar to the 2021 study. 3. L4 inferior endplate compression deformity which is new from the November 04, 2022 study. The acuity of this finding is unknown without more recent prior comparisons. Dictated by: Kathy lEliott M.D. on 03/22/2024 at 15:04 Approved by: Kathy Elliott M.D. on 03/22/2024 at 15:10
--- NOTE | 2024-03-22 13:59 | DI.US.S_ITS ---
PROCEDURE: US ABDOMEN LIMITED INDICATIONS: RUQ PAIN TECHNIQUE: Real-time focused scanning was performed of the abdomen, with image documentation. COMPARISON: [facility], CT, CT ABDOMEN PELVIS W CON, 03/22/2024, 14:06. FINDINGS: Liver measures 17 cm. No discrete lesion. Distended gallbladder. Cholelithiasis. Negative sonographic Baxter sign. Normal wall thickness at 2 mm. CBD measures 7 mm, which is mildly dilated. IMPRESSION: Cholelithiasis and gallbladder distention. No sonographic Baxter sign at this time to suggest acute cholecystitis. Mildly distended CBD at 7 mm. Consider nuclear medicine HIDA study or MRCP if further evaluation is desired. Dictated by: Edy Jean M.D. on 03/22/2024 at 16:43 Approved by: Edy Jean M.D. on 03/22/2024 at 16:45
--- NOTE | 2024-03-22 14:00 | DI.RAD.S_ITS ---
PROCEDURE: XR CHEST 2V INDICATIONS: Upper abdominal pain TECHNIQUE: 2 views of the chest were acquired. COMPARISON: [facility], CR, XR CHEST 2V, 01/06/2024, 12:06. FINDINGS: Surgical changes and devices: None. Lungs and pleura: Lung volumes are low. There are diffuse interstitial radiopacities and pulmonary vascular engorgement. Mediastinum: Mediastinal contours are normal. Heart size is enlarged, as before. Bones and chest wall: No suspicious bony abnormalities. Soft tissues appear unremarkable. IMPRESSION: Interstitial radiopacities, pulmonary vascular engorgement and cardiomegaly suggesting congestive failure. Dictated by: Kathy Elliott M.D. on 03/22/2024 at 15:11 Approved by: Kathy Elliott M.D. on 03/22/2024 at 15:14
[2024-03-22 14:09] LABS: Add Manual Diff / Slide Review NO; Basophils Absolute Auto 0 /uL (0-100); Basophils Percent Auto 0.6 % (0-2); Eosinophils Absolute Auto 100 /uL (0-450); Hematocrit 26.5 % (36-46); Lymphocytes Absolute Auto 2500 /uL (1100-4500); Mean Corpuscular HGB Conc 33.9 % (30-36); Mean Corpuscular Hemoglobin 34.4 PG (26-34); Mean Corpuscular Volume 101.6 fL (80-100); Monocytes Absolute Auto 500 /uL (0-900); Neutrophils Absolute Auto 2500 /uL (1500-7000); Neutrophils Percent Auto 45.4 % (50-75); Platelet Count 170 X10^3/uL (150-400); Red Blood Cell Count 2.61 X10^6/uL (4.0-5.2); Red Cell Distribution Width 17.4 % (11.6-14.8); White Blood Cell Count 5.6 X10^3/uL (4.5-11.0)
[2024-03-22 14:12] LABS: Creatine Kinase 30 U/L (30-135)
[2024-03-22] MEDS: KETOROLAC 30 MG/ML VIAL 15 MG IV (14:13)
[2024-03-22 14:14] LABS: Alanine Aminotransferase 21 IU/L (<35); Albumin 3.9 g/dL (3.5-5.0); Albumin Globulin Ratio 0.6 (1.0-2.8); Alkaline Phosphatase 90 U/L (38-126); Aspartate Aminotransferase 29 IU/L (14-36); BUN Creatinine Ratio 17.6 (6-22); Bilirubin Total 0.6 mg/dL (0.2-1.3); Blood Urea Nitrogen 12 mg/dL (7-17); Calcium 9.7 mg/dL (8.4-10.2); Carbon Dioxide 27 mmol/L (22-32); Chloride 102 mmol/L (98-107); Estimated Glomerular Filt Rate > 60 mL/min (>60); Globulin 6.7 g/dL (1.7-4.1); Glucose 126 mg/dL (80-110); HEMOLYSIS < 15 (0-50); Lactate (Lactic Acid) 1.3 mmol/L (0.7-2.1); Lipase 97 U/L (23-300); Potassium 3.5 mmol/L (3.4-5.1); Sodium 136 mmol/L (137-145); Total Protein 10.6 g/dL (6.3-8.2)
[2024-03-22 14:25] LABS: Troponin I < 0.012 ng/mL (0.01-0.034)
--- NOTE | 2024-03-22 14:41 | ED_ITS ---
HPI - Abdominal Pain <Krystal Dudley PA-C - Last Filed: 03/22/24 19:01> General Chief Complaint: Abdominal Pain Stated Complaint: abd pain Time Seen by Provider: 03/22/24 13:40 Source: patient and EMS Mode of arrival: EMS History of Present Illness HPI narrative: 83-year-old female with past medical history neuroendocrine tumors, diverticulitis, small-bowel obstruction, nephrolithiasis presents to the ED with 2 days of upper abdominal pain. Patient states that suffered a bad bout of constipation 1 week ago, was seen at [facility], diagnosed with constipation. She was given several enemas with good relief and her last imaging on 03/16/2024 showed very little stool in the colon and no obstructions or other acute findings. Since then, patient states she has been eating carefully, however she has experienced upper abdominal pain which she describes as a band that goes across her diaphragm. No nausea, fever, chills, vomiting. Last bowel movement was yesterday. Patient states she has only been having small bowel movements since this issue with constipation. No melena, hematochezia. Patient states she was passing gas earlier today. Patient was brought in by EMS today, they gave her 50 mcg fentanyl for pain, patient states that the pain almost went away. In the ED, patient still appears uncomfortable and in pain, describes the pain as 4/10. Patient also has a history of an L1 compression fracture that occurred in 09/28/2022. Related Data Home Medications Medication Instructions Recorded Confirmed aspirin 81 mg tablet,delayed 81 mg PO Q OTHER DAY ##0 03/03/11 11/15/18 release (Grant Low Dose Aspirin) cholecalciferol (vitamin D3) 50 2,000 unit PO Q OTHER DAY ##0 03/03/11 11/15/18 mcg (2,000 unit) capsule (Vitamin D3) ascorbic acid (vitamin C) 500 mg 500 mg PO DAILY ##0 05/20/13 11/15/18 tablet vitamin B complex 1 cap PO DAILY ##0 05/20/13 11/15/18 amlodipine 10 mg tablet 10 mg PO DAILY ##0 12/25/17 11/15/18 atorvastatin 10 mg tablet (Lipitor) 10 mg PO DAILY ##0 12/25/17 11/15/18 losartan 100 mg tablet 100 mg PO DAILY ##0 12/25/17 11/15/18 metoprolol succinate 50 mg 50 mg PO DAILY ##0 12/25/17 11/15/18 tablet,extended release 24 hr vitamin A 3,000 mcg (10,000 unit) 1 cap PO DAILY ##0 12/25/17 11/15/18 capsule alendronate 35 mg tablet 35 mg PO QWEEK 08/15/18 11/15/18 metformin 850 mg tablet 850 mg PO BID 08/15/18 11/15/18 diphenhydramine HCl 25 mg tablet 25 mg PO Q8H PRN Allergy Symptoms 11/15/18 11/15/18 (Benadryl Allergy) esomeprazole magnesium 40 mg 40 mg PO Q OTHER DAY 11/15/18 11/15/18 capsule,delayed release (Nexium) ibuprofen 200 mg tablet 200 mg PO TID PRN pain 11/15/18 11/15/18 lorazepam 0.5 mg tablet 0.5 mg PO BID PRN Anxiety 11/15/18 11/15/18 Allergies Allergy/AdvReac Type Severity Reaction Status Date / Time No Known Drug Allergies Allergy Verified 09/05/18 21:34 Review of Systems <Krystal Dudley PA-C - Last Filed: 03/22/24 19:01> Constitutional Constitutional: Denies chills, Denies fatigue, Denies fever(s), Denies frequent falls, Denies lethargy and Denies weakness Eyes Eyes: Denies change in vision, Denies eye discharge, Denies irritation and Denies loss of vision ENT Ears, Nose, Mouth, and Throat: Denies change in voice, Denies dizziness, Denies neck pain, Denies sore throat and Denies throat swelling Cardiovascular Cardiovascular: Denies chest pain, Denies irregular heart rhythm, Denies lightheadedness, Denies palpitations, Denies dyspnea, Denies dyspnea on exertion and Denies orthopnea Respiratory Respiratory: Denies cough, Denies dyspnea, Denies dyspnea on exertion and Denies wheezing Gastrointestinal Gastrointestinal: Reports abdominal pain, Denies change in bowel habits, Denies diarrhea, Denies nausea and Denies vomiting Musculoskeletal Musculoskeletal: Reports back pain, Denies neck pain and Denies numbness Integumentary/Breasts Skin/Breast: Denies pruritus, Denies erythema, Denies rash and Denies wounds Neurologic Neurologic: Denies behavioral changes, Denies confusion, Denies dizziness, Denies frequent falls, Denies loss of vision, Denies numbness and Denies weakness Psychiatric Psychiatric: Denies anxiety, Denies behavioral changes, Denies confusion, Denies depression, Denies homicidal ideation and Denies suicidal ideation Endocrine Endocrine: Denies fatigue, Denies flushing and Denies palpitations Hematologic/Lymphatic Hematologic/Lymphatic: Denies easy bruising Allergic/Immunologic Allergic/Immunologic: Denies urticaria, Denies throat swelling and Denies wheezing Patient History <Krystal Dudley PA-C - Last Filed: 03/22/24 19:01> Medical History (Updated 03/22/24 @ 21:30 by Lesli Amado MD) Neuroendocrine tumor Surgical History History of bowel resection Social History household members: spouse Smoking Status: Never smoker Smoking Status: Never smoker alcohol intake frequency: a few times a month Substance Use Type: does not use Exam <Krystal Dudley PA-C - Last Filed: 03/22/24 19:01> Narrative Exam Narrative: Const General:?cooperative, healthy appearing and comfortable [facility] Head:?normal to inspection Ears:?hearing grossly normal bilaterally Nose:?external nose normal Face and sinus:?normal facial exam and sinuses nontender Mouth:?oral mucosae normal Throat:?posterior oropharynx normal Eyes General:?appearance normal, both eyes and all related structures Neck Neck:?normal visual inspection and no lymphadenopathy noted Resp Effort & Inspection:?normal respiratory effort Auscultation:?clear to auscultation bilaterally Cardio Rate:?regular rate Rhythm:?regular rhythm GI Abdomen is soft, nondistended. Abdomen is tender to palpation in the right upper quadrant, epigastric region, left lower quadrant. Musculoskeletal There is some midline tenderness to palpation in the L1 region. No paraspinal tenderness to palpation. Neuro General:?patient alert, patient awake and patient oriented x3 Initial Vital Signs Initial Vital Signs: Vital Signs Pulse Rate 62 03/22/24 13:46 Respiratory Rate 18 03/22/24 13:46 Blood Pressure 197/92 H 03/22/24 13:46 Pulse Oximetry 96 03/22/24 13:46 Oxygen Delivery Method Room Air 03/22/24 13:46 <Lesli Amado MD - Last Filed: 03/22/24 21:36> Initial Vital Signs Initial Vital Signs: Vital Signs Pulse Rate 62 03/22/24 13:46 Respiratory Rate 18 03/22/24 13:46 Blood Pressure 197/92 H 03/22/24 13:46 Pulse Oximetry 96 03/22/24 13:46 Oxygen Delivery Method Room Air 03/22/24 13:46 Course <Krystal Dudley PA-C - Last Filed: 03/22/24 19:01> Orders Ordered: ED Orders 03/22/24 13:50 BNP [NT-proBNP (BNP-Adult 18+)] Stat CBC Auto Diff [Complete Blood Count AUTO DIFF] Stat CMP [Comprehensive Metabolic Panel] Stat Lactate (Lactic Acid) Stat Lipase Stat Troponin & CK Cardiac Panel Stat 03/22/24 13:56 CT abdomen pelvis w con Stat 03/22/24 13:59 US abdomen limited Stat 03/22/24 14:00 CXR [XR chest 2V] Stat EKG-12 Lead Stat 03/22/24 16:53 MR Ab Pancreatic/MRCP protocol Stat 03/22/24 21:08 Consult to General Surgery Stat Hydromorphone HCl (Hydromorphone 0.5 Mg Inj) 0.5 mg IV Q15MIN PRN PRN Reason: Pain, Last Admin: 03/22/24 20:47 Dose: 0.5 mg Sodium Chloride (Normal Saline 0.9%) 1,000 mls @ 150 mls/hr IV CONT CAROLINE Last Admin: 03/22/24 21:08 Dose: 150 mls/hr Discontinued Medications Al Hydrox/Mg Hydrox/Simethicone 20 ml/ Lidocaine HCl 15 ml 0 ml PO NOW ONE Stop: 03/22/24 20:48 Last Admin: 03/22/24 21:08 Dose: 35 ml Ketorolac Tromethamine (Ketorolac 30 Mg/Ml Vial) 15 mg IV NOW ONE Stop: 03/22/24 14:09 Last Admin: 03/22/24 14:13 Dose: 15 mg Documented By: ALTHEA Lorazepam (Lorazepam 2 Mg/Ml Inj) 0.5 mg IV NOW ONE Stop: 03/22/24 17:39 Last Admin: 03/22/24 18:05 Dose: 0.5 mg Documented By: ALTHEA Morphine Sulfate (Morphine 4 Mg/Ml Inj) 4 mg IV NOW ONE Stop: 03/22/24 15:09 Last Admin: 03/22/24 15:15 Dose: 4 mg Documented By: ALTHEA Morphine Sulfate (Morphine 4 Mg/Ml Inj) 4 mg IV NOW ONE Stop: 03/22/24 20:37 Last Admin: 03/22/24 21:08 Dose: 4 mg Vital Signs Vital signs: Vital Signs - 8 hr 03/22/24 13:46 03/22/24 14:24 03/22/24 14:30 Pulse Rate 62 67 68 Respiratory Rate 18 21 Blood Pressure 197/92 H Pulse Oximetry 96 96 97 Oxygen Delivery Method Room Air 03/22/24 14:32 03/22/24 14:32 03/22/24 15:00 Pulse Rate 69 Respiratory Rate 22 Blood Pressure 178/74 H 180/78 H Pulse Oximetry 94 Oxygen Delivery Method 03/22/24 15:30 03/22/24 15:30 03/22/24 16:00 Pulse Rate 67 Respiratory Rate 18 Blood Pressure 173/79 H 183/75 H Pulse Oximetry 92 Oxygen Delivery Method 03/22/24 16:30 03/22/24 16:30 03/22/24 17:00 Pulse Rate 67 69 Respiratory Rate 22 22 Blood Pressure 166/71 H Pulse Oximetry 98 96 Oxygen Delivery Method 03/22/24 17:00 03/22/24 17:30 03/22/24 17:30 Pulse Rate 67 Respiratory Rate 21 Blood Pressure 165/74 H 161/72 H Pulse Oximetry 94 Oxygen Delivery Method 03/22/24 18:00 Pulse Rate 65 Respiratory Rate 16 Blood Pressure Pulse Oximetry 98 Oxygen Delivery Method <Lesli Amado MD - Last Filed: 03/22/24 21:36> Orders Ordered: ED Orders 03/22/24 13:50 BNP [NT-proBNP (BNP-Adult 18+)] Stat CBC Auto Diff [Complete Blood Count AUTO DIFF] Stat CMP [Comprehensive Metabolic Panel] Stat Lactate (Lactic Acid) Stat Lipase Stat Troponin & CK Cardiac Panel Stat 03/22/24 13:56 CT abdomen pelvis w con Stat 03/22/24 13:59 US abdomen limited Stat 03/22/24 14:00 CXR [XR chest 2V] Stat EKG-12 Lead Stat 03/22/24 16:53 MR Ab Pancreatic/MRCP protocol Stat 03/22/24 21:08 Consult to General Surgery Stat Hydromorphone HCl (Hydromorphone 0.5 Mg Inj) 0.5 mg IV Q15MIN PRN PRN Reason: Pain, Last Admin: 03/22/24 20:47 Dose: 0.5 mg Sodium Chloride (Normal Saline 0.9%) 1,000 mls @ 150 mls/hr IV CONT CAROLINE Last Admin: 03/22/24 21:08 Dose: 150 mls/hr Discontinued Medications Al Hydrox/Mg Hydrox/Simethicone 20 ml/ Lidocaine HCl 15 ml 0 ml PO NOW ONE Stop: 03/22/24 20:48 Last Admin: 03/22/24 21:08 Dose: 35 ml Ketorolac Tromethamine (Ketorolac 30 Mg/Ml Vial) 15 mg IV NOW ONE Stop: 03/22/24 14:09 Last Admin: 03/22/24 14:13 Dose: 15 mg Documented By: ALTHEA Lorazepam (Lorazepam 2 Mg/Ml Inj) 0.5 mg IV NOW ONE Stop: 03/22/24 17:39 Last Admin: 03/22/24 18:05 Dose: 0.5 mg Documented By: ALTHEA Morphine Sulfate (Morphine 4 Mg/Ml Inj) 4 mg IV NOW ONE Stop: 03/22/24 15:09 Last Admin: 03/22/24 15:15 Dose: 4 mg Documented By: ALTHEA Morphine Sulfate (Morphine 4 Mg/Ml Inj) 4 mg IV NOW ONE Stop: 03/22/24 20:37 Last Admin: 03/22/24 21:08 Dose: 4 mg Vital Signs Vital signs: Vital Signs - 8 hr 03/22/24 13:46 03/22/24 14:24 03/22/24 14:30 Pulse Rate 62 67 68 Respiratory Rate 18 21 Blood Pressure 197/92 H Pulse Oximetry 96 96 97 Oxygen Delivery Method Room Air 03/22/24 14:32 03/22/24 14:32 03/22/24 15:00 Pulse Rate 69 Respiratory Rate 22 Blood Pressure 178/74 H 180/78 H Pulse Oximetry 94 Oxygen Delivery Method 03/22/24 15:30 03/22/24 15:30 03/22/24 16:00 Pulse Rate 67 Respiratory Rate 18 Blood Pressure 173/79 H 183/75 H Pulse Oximetry 92 Oxygen Delivery Method 03/22/24 16:30 03/22/24 16:30 03/22/24 17:00 Pulse Rate 67 69 Respiratory Rate 22 22 Blood Pressure 166/71 H Pulse Oximetry 98 96 Oxygen Delivery Method 03/22/24 17:00 03/22/24 17:30 03/22/24 17:30 Pulse Rate 67 Respiratory Rate 21 Blood Pressure 165/74 H 161/72 H Pulse Oximetry 94 Oxygen Delivery Method 03/22/24 18:00 Pulse Rate 65 Respiratory Rate 16 Blood Pressure Pulse Oximetry 98 Oxygen Delivery Method MDM - Abdominal Pain <Hyma JEFFREY Dudley - Last Filed: 03/22/24 19:01> Lab Data 03/22/24 13:50 03/22/24 13:50 Labs: Lab Results 03/22/24 Range/Units 13:50 WBC 5.6 (4.5-11.0) X10^3/uL RBC 2.61 L (4.0-5.2) X10^6/uL Hgb 9.0 L (12.0-16.0) g/dL Hct 26.5 L (36-46) % MCV 101.6 H (80-100) fL MCH 34.4 H (26-34) PG MCHC 33.9 (30-36) % RDW 17.4 H (11.6-14.8) % Plt Count 170 (150-400) X10^3/uL Neut % (Auto) 45.4 L (50-75) % Lymph % (Auto) 44.0 H (25-40) % Atlantic % (Auto) 9.0 (3-14) % Eos % (Auto) 1.0 L (2-4) % Baso % (Auto) 0.6 (0-2) % Neut # (Auto) 2500 (4342-5785) /uL Lymph # (Auto) 2500 (6761-4476) /uL Atlantic # (Auto) 500 (0-900) /uL Eos # (Auto) 100 (0-450) /uL Baso # (Auto) 0 (0-100) /uL Sodium 136 L (137-145) mmol/L Potassium 3.5 (3.4-5.1) mmol/L Chloride 102 (98-107) mmol/L Carbon Dioxide 27 (22-32) mmol/L BUN 12 (7-17) mg/dL Creatinine 0.68 (0.52-1.04) mg/dL Estimated GFR > 60 (>60) mL/min BUN/Creatinine Ratio 17.6 (6-22) Glucose 126 H (80-110) mg/dL Lactate 1.3 (0.7-2.1) mmol/L Calcium 9.7 (8.4-10.2) mg/dL Total Bilirubin 0.6 (0.2-1.3) mg/dL AST 29 (14-36) IU/L ALT 21 (<35) IU/L Alkaline Phosphatase 90 (38-126) U/L Total Creatine Kinase 30 (30-135) U/L Troponin I < 0.012 (0.01-0.034) ng/mL NT-Pro-B Natriuret Pep 402 (<450) pg/mL Total Protein 10.6 H (6.3-8.2) g/dL Albumin 3.9 (3.5-5.0) g/dL Globulin 6.7 H (1.7-4.1) g/dL Albumin/Globulin Ratio 0.6 L (1.0-2.8) Lipase 97 (23-300) U/L Point of care testing: Urine Dip Bedside Urine Glucose Negative Bedside Urine Bilirubin - Negative Bedside Urine Ketone - Negative Urine Specific [place] 1.010 Bedside Urine Occult Blood - Negative Bedside Urine pH 6.0 Bedside Urine Protein - Negative Bedside Urine Urobilinogen - Negative Bedside Urine Nitrite - Negative Bedside Urine Leukocytes - Negative Esterase MDM Narrative Medical decision making narrative: 83-year-old female with past medical history neuroendocrine tumors, diverticulitis, small-bowel obstruction, nephrolithiasis presents to the ED with 2 days of upper abdominal pain. Concern for cholelithiasis versus cholecystitis versus gastritis versus gastroenteritis versus PUD versus pancreatitis versus diverticulitis versus nephrolithiasis versus UTI versus pyelonephritis versus SBO versus constipation versus other. Will obtain EKG, chest x-ray, labs, troponin, UA, lipase, lactate, CT abdomen pelvis, ultrasound abdomen. Will give ketorolac for pain. Will reassess. Patient's pain remains at a 5/10. Will give morphine. Patient's symptoms improved and morphine and she was comfortable. CT abdomen pelvis shows a distended gallbladder without wall thickening or pericholecystic fluid. Finding is equivocal for acute cholecystitis. L1 compression deformity unchanged from the 2021 study. There is a new L4 inferior endplate compression deformity, however no clinical correlation today. Ultrasound of the abdomen was also performed which shows cholelithiasis and gallbladder distention. No sonographic Baxter's sign at the time. Mildly distended CBD at 7 mm. Given equivocal findings, will obtain an MRCP to further characterize. Patient was given some Ativan prior to the MRCP. Patient is now signed out to Dr. Lesli Amado <Lesli Amado MD - Last Filed: 03/22/24 21:36> Lab Data Labs: Lab Results 03/22/24 Range/Units 13:50 WBC 5.6 (4.5-11.0) X10^3/uL RBC 2.61 L (4.0-5.2) X10^6/uL Hgb 9.0 L (12.0-16.0) g/dL Hct 26.5 L (36-46) % MCV 101.6 H (80-100) fL MCH 34.4 H (26-34) PG MCHC 33.9 (30-36) % RDW 17.4 H (11.6-14.8) % Plt Count 170 (150-400) X10^3/uL Neut % (Auto) 45.4 L (50-75) % Lymph % (Auto) 44.0 H (25-40) % Atlantic % (Auto) 9.0 (3-14) % Eos % (Auto) 1.0 L (2-4) % Baso % (Auto) 0.6 (0-2) % Neut # (Auto) 2500 (5523-0325) /uL Lymph # (Auto) 2500 (2737-8733) /uL Atlantic # (Auto) 500 (0-900) /uL Eos # (Auto) 100 (0-450) /uL Baso # (Auto) 0 (0-100) /uL Sodium 136 L (137-145) mmol/L Potassium 3.5 (3.4-5.1) mmol/L Chloride 102 (98-107) mmol/L Carbon Dioxide 27 (22-32) mmol/L BUN 12 (7-17) mg/dL Creatinine 0.68 (0.52-1.04) mg/dL Estimated GFR > 60 (>60) mL/min BUN/Creatinine Ratio 17.6 (6-22) Glucose 126 H (80-110) mg/dL Lactate 1.3 (0.7-2.1) mmol/L Calcium 9.7 (8.4-10.2) mg/dL Total Bilirubin 0.6 (0.2-1.3) mg/dL AST 29 (14-36) IU/L ALT 21 (<35) IU/L Alkaline Phosphatase 90 (38-126) U/L Total Creatine Kinase 30 (30-135) U/L Troponin I < 0.012 (0.01-0.034) ng/mL NT-Pro-B Natriuret Pep 402 (<450) pg/mL Total Protein 10.6 H (6.3-8.2) g/dL Albumin 3.9 (3.5-5.0) g/dL Globulin 6.7 H (1.7-4.1) g/dL Albumin/Globulin Ratio 0.6 L (1.0-2.8) Lipase 97 (23-300) U/L Point of care testing: Urine Dip Bedside Urine Glucose Negative Bedside Urine Bilirubin - Negative Bedside Urine Ketone - Negative Urine Specific [place] 1.010 Bedside Urine Occult Blood - Negative Bedside Urine pH 6.0 Bedside Urine Protein - Negative Bedside Urine Urobilinogen - Negative Bedside Urine Nitrite - Negative Bedside Urine Leukocytes - Negative Esterase Imaging Data MR abd: Radiologist's Impression: PROCEDURE: MR AB PANCREATIC/MRCP PROTOCOL INDICATIONS: RUQ pain; cholelithiasis TECHNIQUE: Coronal HASTE through the abdomen, axial 2-D FLASH in- and [id number], and breath-hold T2 FSE with fat saturation through the biliary system and pancreas. Oblique coronal and axial thin-slice HASTE, radial thick-slab HASTE centered on the extrahepatic bile ducts. Intravenous secretin: Not requested. COMPARISON: [facility], US, US ABDOMEN LIMITED, 03/22/2024, 14:20. [facility], CT, CT ABDOMEN PELVIS W CON, 03/22/2024, 14:06. FINDINGS: Image quality: Diagnostic. Gallbladder: Distended gallbladder without wall thickening or pericholecystic edema. There are a few stones layering dependently near the neck measuring a few mm in size. No cystic duct stone seen. Biliary ducts: No intra or extrahepatic biliary dilatation. No common duct filling defects. Pancreas: No pancreatic ductal dilatation. There are a few small cysts or dilated side branches in the pancreatic neck and body. The more proximal demonstrates a connection to the pancreatic duct and measures 8 mm. The more distal measures 9 mm the pancreas enhances uniformly without mass.. OTHER: Lung bases: Cardiomegaly. Trace bilateral pleural effusions. Small hiatal hernia. Liver: Small liver cyst. No solid mass. Partial left lobe resection. Spleen: Normal size. Splenule at the hilum. Adrenal Glands: No adrenal nodules. Kidneys and Ureters: Small upper pole cortical cysts. Symmetric enhancement. No hydronephrosis. Stomach and Bowel: Decompressed stomach. No dilated bowel loops. Increased quantity of colonic stool seen. Peritoneum: No abnormal intraperitoneal fluid. No free air. Ventral Wall: No ventral wall hernia. There is a smooth enhancing ovoid mass in the right posteromedial soft tissues outside the diaphragm with hypointense T1 and T2 signal measuring 2.9 x 1.1 cm. This demonstrates restricted diffusion. Abdominal Nodes: No retroperitoneal or mesenteric adenopathy by size criteria. Vessels: Aorta and inferior vena cava are normal in size. Bones: No aggressive osseous abnormality. IMPRESSION: Distended gallbladder with nonobstructing tiny gallstones. No MR evidence of acute cholecystitis. No biliary dilatation or finding to suggest choledocholithiasis. Small pancreatic cysts, likely dilated side branches or side branch IPMN. Recommend follow-up pancreatic MR imaging in 6-12 months. Development of extraperitoneal right medial chest wall nodule with enhancement and restricted diffusion. Correlate with history of neoplasm. Consider neuroma given proximity to intercostal structures. Dictated by: Heather Dixon M.D. on 03/22/2024 at 19:29 MDM Narrative Medical decision making narrative: 83-year-old female with past medical history neuroendocrine tumors, diverticulitis, small-bowel obstruction, nephrolithiasis presents to the ED with 2 days of upper abdominal pain. Concern for cholelithiasis versus cholecystitis versus gastritis versus gastroenteritis versus PUD versus pancreatitis versus diverticulitis versus nephrolithiasis versus UTI versus pyelonephritis versus SBO versus constipation versus other. Will obtain EKG, chest x-ray, labs, troponin, UA, lipase, lactate, CT abdomen pelvis, ultrasound abdomen. Will give ketorolac for pain. Will reassess. Patient's pain remains at a 5/10. Will give morphine. Patient's symptoms improved and morphine and she was comfortable. CT abdomen pelvis shows a distended gallbladder without wall thickening or pericholecystic fluid. Finding is equivocal for acute cholecystitis. L1 compression deformity unchanged from the 2021 study. There is a new L4 inferior endplate compression deformity, however no clinical correlation today. Ultrasound of the abdomen was also performed which shows cholelithiasis and gallbladder distention. No sonographic Baxter's sign at the time. Mildly distended CBD at 7 mm. Given equivocal findings, will obtain an MRCP to further characterize. Patient was given some Ativan prior to the MRCP. Patient is now signed out to Dr. Lesli Amado 9pm patient is independently evaluated, today's records, ER records from [facility], all of her imaging studies are reviewed and patient is examined. She continues to have severe upper abdominal pain unrelenting progressively worse over the past 9 days. She has had 3 emergency visits at [facility], x-rays and CT scans were unrevealing, total of 5 enemas and feels like her constipation has resolved There was an urgent care visit following day a primary care visit and now is in the emergency department with uncontrolled upper abdominal pain. She is not vomiting, she has not had additional diarrhea, there is no fever. She has a mild cough from a resolving upper respiratory infection. CT scans, x-rays and MRIs are unrevealing. She has a mildly dilated gallbladder with no evidence of acute ascending cholangitis, acute cholecystitis, pancreatitis, choledocholithiasis, internal hernia, lower lobe pneumonia, GI bleeding, acute coronary syndrome or other explanation for her worsening upper abdominal pain. Care is reviewed with Dr. Quintanilla, general surgery. At this point I believe patient needs to be admitted for intractable pain, I find it hard to believe that an acute etiology will not be found given the persistence and increasing pain. Dr. Quintanilla has agreed to consult and we will plan on admitting patient to the hospitalist service. At this point there is no evidence of infection and antibiotics were not initiated. She has not particularly constipated on independent review of studies done today. She has responded nicely to small doses of narcotic. We will continue with IV hydration and as needed narcotic use. Findings have been reviewed with the patient and her in detail. Questions are answered. She very much would prefer to stay in the hospital given the degree of pain that she is currently experiencing. Care is reviewed with hospitalist service and patient will be admitted to the hospitalist service with surgery consult. Discharge Plan Departure Patient Disposition: Admitted as Observation Clinical Impression: Intractable abdominal pain
[2024-03-22] MEDS: MORPHINE 4 MG/ML INJ IV ×2 (15:15→21:08)
[2024-03-22 15:42] LABS: NT-proBNP (BNP-Adult 18+) 402 pg/mL (<450)
--- NOTE | 2024-03-22 16:53 | DI.MRI.S_ITS ---
PROCEDURE: MR AB PANCREATIC/MRCP PROTOCOL INDICATIONS: RUQ pain; cholelithiasis TECHNIQUE: Coronal HASTE through the abdomen, axial 2-D FLASH in- and [id number], and breath-hold T2 FSE with fat saturation through the biliary system and pancreas. Oblique coronal and axial thin-slice HASTE, radial thick-slab HASTE centered on the extrahepatic bile ducts. Intravenous secretin: Not requested. COMPARISON: [facility], US, US ABDOMEN LIMITED, 03/22/2024, 14:20. [facility], CT, CT ABDOMEN PELVIS W CON, 03/22/2024, 14:06. FINDINGS: Image quality: Diagnostic. Gallbladder: Distended gallbladder without wall thickening or pericholecystic edema. There are a few stones layering dependently near the neck measuring a few mm in size. No cystic duct stone seen. Biliary ducts: No intra or extrahepatic biliary dilatation. No common duct filling defects. Pancreas: No pancreatic ductal dilatation. There are a few small cysts or dilated side branches in the pancreatic neck and body. The more proximal demonstrates a connection to the pancreatic duct and measures 8 mm. The more distal measures 9 mm the pancreas enhances uniformly without mass.. OTHER: Lung bases: Cardiomegaly. Trace bilateral pleural effusions. Small hiatal hernia. Liver: Small liver cyst. No solid mass. Partial left lobe resection. Spleen: Normal size. Splenule at the hilum. Adrenal Glands: No adrenal nodules. Kidneys and Ureters: Small upper pole cortical cysts. Symmetric enhancement. No hydronephrosis. Stomach and Bowel: Decompressed stomach. No dilated bowel loops. Increased quantity of colonic stool seen. Peritoneum: No abnormal intraperitoneal fluid. No free air. Ventral Wall: No ventral wall hernia. There is a smooth enhancing ovoid mass in the right posteromedial soft tissues outside the diaphragm with hypointense T1 and T2 signal measuring 2.9 x 1.1 cm. This demonstrates restricted diffusion. Abdominal Nodes: No retroperitoneal or mesenteric adenopathy by size criteria. Vessels: Aorta and inferior vena cava are normal in size. Bones: No aggressive osseous abnormality. IMPRESSION: Distended gallbladder with nonobstructing tiny gallstones. No MR evidence of acute cholecystitis. No biliary dilatation or finding to suggest choledocholithiasis. Small pancreatic cysts, likely dilated side branches or side branch IPMN. Recommend follow-up pancreatic MR imaging in 6-12 months. Development of extraperitoneal right medial chest wall nodule with enhancement and restricted diffusion. Correlate with history of neoplasm. Consider neuroma given proximity to intercostal structures. Dictated by: Heather Dixon M.D. on 03/22/2024 at 19:29 Approved by: Heather Dixon M.D. on 03/22/2024 at 19:41
[2024-03-22] MEDS: LORazepam 2 MG/ML INJ 0.5 MG IV (18:05)
[2024-03-22] MEDS: HYDROMORPHONE 0.5 MG INJ IV (20:47)
[2024-03-22] MEDS: SODIUM CHLORIDE 0.9% 1,000 ML 150 ML IV (21:08)
[2024-03-22] MEDS: MAG HYDROX/ALUMINUM/SIMETH SUS 20 ML, LIDOCAINE VISCOUS 2% 15 ML PO (21:08)
[2024-03-22] MEDS: SODIUM CHLORIDE 0.9% 1,000 ML 100 ML IV (22:35)
--- NOTE | 2024-03-22 23:19 | PC.NURSE ---
Pt arrived to the floor, on 2L of O2 via NC, NS infusing at 150/hr and switched to 100 ml/hr upon arrival to the unit. VSS. Pt is able to make her needs known, pain is controlled at this time. Pt was able to stand and pivot from the ED gurney into the hospital bed. Pt was oriented to the room and call light within reach. Pt is A&Ox4.
--- NOTE | 2024-03-22 23:42 | PM.HP.1 ---
History of Present Illness History of Present Illness Date Patient Seen: 03/22/24 Time Patient Seen: 23:42 Chief complaint: abd pain Narrative: The pt is a 83 yo with a 9 day hx of RUQ abdominal pain the is constant- day and night, sharp, rated the pain as a 8-9 and non-radiating. She has been to the ER several times since onset and was initially told she was constipated and was given enemas and laxative with good results. She has been taking some type of pain meds at home which she does not know the name of. There is no nausea or vomiting, but she has been taking a very limited diet, for unknown reasons. The pt states she has been having continued hard stools since the ER visits, last Thursday she saw her PCP at [facility] and was told not to take a laxative, [facility] Medical History (Updated 03/22/24 @ 21:30 by Lesli Amado MD) Neuroendocrine tumor Surgical History History of bowel resection Social History household members: spouse Smoking Status: Never smoker alcohol intake: current Meds Home Medications and Allergies Home Medications Medication Instructions Recorded Confirmed Type cholecalciferol (vitamin D3) 50 2,000 unit PO Q OTHER DAY ##0 03/03/11 03/22/24 History mcg (2,000 unit) capsule (Vitamin D3) ascorbic acid (vitamin C) 500 mg 500 mg PO DAILY ##0 05/20/13 03/22/24 History tablet vitamin B complex 1 cap PO DAILY ##0 05/20/13 03/22/24 History amlodipine 10 mg tablet 10 mg PO DAILY ##0 12/25/17 03/22/24 History atorvastatin 10 mg tablet (Lipitor) 10 mg PO DAILY ##0 12/25/17 03/22/24 History losartan 100 mg tablet 100 mg PO DAILY ##0 12/25/17 03/22/24 History metoprolol succinate 50 mg 50 mg PO DAILY ##0 12/25/17 03/22/24 History tablet,extended release 24 hr vitamin A 3,000 mcg (10,000 unit) 1 cap PO DAILY ##0 12/25/17 03/22/24 History capsule alendronate 35 mg tablet 35 mg PO QWEEK 08/15/18 03/22/24 History esomeprazole magnesium 40 mg 40 mg PO Q OTHER DAY 11/15/18 03/22/24 History capsule,delayed release (Nexium) ibuprofen 200 mg tablet 200 mg PO TID PRN pain 11/15/18 03/22/24 History lorazepam 0.5 mg tablet 0.5 mg PO BID PRN Anxiety 11/15/18 03/22/24 History escitalopram oxalate 10 mg tablet 10 mg PO DAILY 03/22/24 03/22/24 History Allergies Allergy/AdvReac Type Severity Reaction Status Date / Time No Known Drug Allergies Allergy Verified 09/05/18 21:34 Exam Vital Signs (past 8 hours): - 03/22/24 16:00 03/22/24 16:30 03/22/24 16:30 Temperature Pulse Rate 67 Respiratory Rate 22 Blood Pressure 183/75 H 166/71 H Pulse Oximetry 98 Oxygen Delivery Method Oxygen Flow Rate 03/22/24 17:00 03/22/24 17:00 03/22/24 17:30 Temperature Pulse Rate 69 Respiratory Rate 22 Blood Pressure 165/74 H 161/72 H Pulse Oximetry 96 Oxygen Delivery Method Oxygen Flow Rate 03/22/24 17:30 03/22/24 18:00 03/22/24 22:25 Temperature Pulse Rate 67 65 68 Respiratory Rate 21 16 18 Blood Pressure 162/73 H Pulse Oximetry 94 98 93 Oxygen Delivery Method Nasal Cannula Oxygen Flow Rate 2 03/22/24 22:30 Temperature 97.8 F Pulse Rate 69 Respiratory Rate 18 Blood Pressure 176/77 H Pulse Oximetry 97 Oxygen Delivery Method Oxygen Flow Rate 3 Oxygen Delivery Method Nasal Cannula Oxygen Flow Rate 3 Const General: cooperative, healthy appearing and comfortable Resp Auscultation: clear to auscultation bilaterally Cardio Rate: regular rate Rhythm: regular rhythm GI Palpation: soft, No rigid and No tender Auscultation: normal bowel sounds Extrem General: no clubbing, cyanosis or edema Objective Labs 03/22/24 13:50 03/22/24 13:50 Labs: Laboratory Results - last 24 hr 03/22/24 13:50 WBC 5.6 RBC 2.61 L Hgb 9.0 L Hct 26.5 L MCV 101.6 H MCH 34.4 H MCHC 33.9 RDW 17.4 H Plt Count 170 Neut % (Auto) 45.4 L Lymph % (Auto) 44.0 H [place] % (Auto) 9.0 Eos % (Auto) 1.0 L Baso % (Auto) 0.6 Neut # (Auto) 2500 Lymph # (Auto) 2500 [place] # (Auto) 500 Eos # (Auto) 100 Baso # (Auto) 0 Sodium 136 L Potassium 3.5 Chloride 102 Carbon Dioxide 27 BUN 12 Creatinine 0.68 Estimated GFR > 60 BUN/Creatinine Ratio 17.6 Glucose 126 H Lactate 1.3 Calcium 9.7 Total Bilirubin 0.6 AST 29 ALT 21 Alkaline Phosphatase 90 Total Creatine Kinase 30 Troponin I < 0.012 NT-Pro-B Natriuret Pep 402 Total Protein 10.6 H Albumin 3.9 Globulin 6.7 H Albumin/Globulin Ratio 0.6 L Lipase 97 Assessment & Plan Assessment and plan (1) Intractable abdominal pain: Status: Acute Plan I have discussed with the ER doctor the pt's presenting symptoms and labs and imaging and agree with the decision for admission. I have personally reviewed the labs which all appear to be normal, CT abd reviewed showing enlarged gallbladder without signs of inflammation or infection. WIll repeat labs in the AM, general surgery has been consulted through the ER. The pt's symptoms are not consistent with a GB problem. Pain meds ordered, antiemetics ordered, benign exam. Quality VTE Deep Vein Thrombosis/Pulmonary Embolism Present on Admission: No
[2024-03-23] VITALS (18 sets, daily range): BP systolic 123–182; BP diastolic 51–99; PULSE 6–93; RESP 14–22; TEMP 36.3–37.5; O2SAT 91–98; BMI 28.8
--- NOTE | 2024-03-23 | PATH_ITS ---
[facility] Accession Number: [id number] No. of containers..01 Tissue . 01 Material submitted: . gallbladder - GALLBLADDER . 01 Diagnosis: GALLBLADDER, CHOLECYSTECTOMY: Chronic cholecysitis and cholelithiasis. [facility] 04/01/2024 1123 Local . 01 Electronically signed: . Iris Jamison MD, Pathologist NPI- [id number] . 01 Gross description: . Received in formalin with two identifiers and gallbladder, is an intact gallbladder, 7.2 x 3.7 x 3.7 cm. The external surface is green, intact, and unremarkable. The cystic duct margin is inked blue, and no pericystic lymph node is identified. The lumen contains dark green mucoid bile with several dark roughened calculi measuring up to 0.4 cm in greatest dimension, not grossly obstructing the cystic duct. The mucosa is green and velvety with no yellow discoloration, polyps, or lesions identified. The solomon average 0.2 cm thick. Intake Man sections to include the cystic duct margin and full thickness sections are submitted in A1. ([id number]) /MRV 03/29/2024 1552 Local . 01 Pathologist provided ICD-10: K81.1, K80.10 . 01 CPT . 368657 Specimen Comment: A courtesy copy of this report has been sent to [phone] Performed at: [address] [id number] MD Christian Richardson MD Phone: [phone]
[2024-03-23] MEDS: MORPHINE 4 MG/ML INJ 3 MG IV ×2 (03:58→07:49)
[2024-03-23 05:02] LABS: Add Manual Diff / Slide Review NO; Basophils Absolute Auto 0 /uL (0-100); Basophils Percent Auto 0.4 % (0-2); Eosinophils Absolute Auto 100 /uL (0-450); Eosinophils Percent Auto 1.6 % (2-4); Hematocrit 23.7 % (36-46); Hemoglobin 7.9 g/dL (12.0-16.0); Lymphocytes Absolute Auto 2000 /uL (1100-4500); Lymphocytes Percent Auto 52.3 % (25-40); Mean Corpuscular HGB Conc 33.6 % (30-36); Mean Corpuscular Hemoglobin 34.3 PG (26-34); Mean Corpuscular Volume 102.3 fL (80-100); Monocytes Absolute Auto 400 /uL (0-900); Monocytes Percent Auto 9.4 % (3-14); Neutrophils Absolute Auto 1400 /uL (1500-7000); Neutrophils Percent Auto 36.3 % (50-75); Platelet Count 145 X10^3/uL (150-400); Red Blood Cell Count 2.31 X10^6/uL (4.0-5.2); Red Cell Distribution Width 17.2 % (11.6-14.8); White Blood Cell Count 3.8 X10^3/uL (4.5-11.0)
[2024-03-23 05:13] LABS: Alanine Aminotransferase 20 IU/L (<35); Albumin 3.5 g/dL (3.5-5.0); Albumin Globulin Ratio 0.6 (1.0-2.8); Alkaline Phosphatase 81 U/L (38-126); Aspartate Aminotransferase 25 IU/L (14-36); BUN Creatinine Ratio 14.9 (6-22); Bilirubin Total 0.5 mg/dL (0.2-1.3); Blood Urea Nitrogen 11 mg/dL (7-17); C-Reactive Protein Quant 0.7 mg/dL (<1.0); Calcium 8.8 mg/dL (8.4-10.2); Carbon Dioxide 29 mmol/L (22-32); Chloride 105 mmol/L (98-107); Estimated Glomerular Filt Rate > 60 mL/min (>60); Glucose 121 mg/dL (80-110); HEMOLYSIS < 15 (0-50); Potassium 4.5 mmol/L (3.4-5.1); Sodium 137 mmol/L (137-145); Total Protein 9.5 g/dL (6.3-8.2)
[2024-03-23] MEDS: PANTOPRAZOLE DR 20 MG TABLET 40 MG PO (05:55)
[2024-03-23] MEDS: SODIUM CHLORIDE 0.9% 1,000 ML 100 ML IV (06:04)
--- NOTE | 2024-03-23 07:50 | PM.PN.1 ---
Subjective Subjective Interval history: Her pain is relatively well controlled. She does note it is primarily right upper quadrant without radiation. No nausea. Dr. Galeas, general surgeon, has proposed cholecystectomy today. She is in agreement. Exam Vital Signs (past 8 hours): - 03/23/24 00:00 03/23/24 04:00 Temperature 98.1 F 98.1 F Pulse Rate 68 71 Respiratory Rate 17 17 Blood Pressure 182/72 H 124/56 L Pulse Oximetry 96 98 Oxygen Flow Rate 3 3 Oxygen Delivery Method Nasal Cannula Oxygen Flow Rate 3 Narrative Exam Narrative: NAD, alert and oriented. Fluent speech. Lungs are clear, normal rate and effort. Heart is regular, no murmur gallop or rub. Abdomen is soft, non distended. There is some right upper quadrant tenderness, without guarding. or rebound. Extremities are free of edema. Objective Labs 03/23/24 04:30 03/23/24 04:30 Labs: Laboratory Results - last 24 hr 03/22/24 03/23/24 13:50 04:30 WBC 5.6 3.8 L RBC 2.61 L 2.31 L Hgb 9.0 L 7.9 L Hct 26.5 L 23.7 L MCV 101.6 H 102.3 H MCH 34.4 H 34.3 H MCHC 33.9 33.6 RDW 17.4 H 17.2 H Plt Count 170 145 L Neut % (Auto) 45.4 L 36.3 L Lymph % (Auto) 44.0 H 52.3 H Wallace % (Auto) 9.0 9.4 Eos % (Auto) 1.0 L 1.6 L Baso % (Auto) 0.6 0.4 Neut # (Auto) 2500 1400 L Lymph # (Auto) 2500 2000 Wallace # (Auto) 500 400 Eos # (Auto) 100 100 Baso # (Auto) 0 0 Sodium 136 L 137 Potassium 3.5 4.5 Chloride 102 105 Carbon Dioxide 27 29 BUN 12 11 Creatinine 0.68 0.74 Estimated GFR > 60 > 60 BUN/Creatinine Ratio 17.6 14.9 Glucose 126 H 121 H Lactate 1.3 Calcium 9.7 8.8 Total Bilirubin 0.6 0.5 AST 29 25 ALT 21 20 Alkaline Phosphatase 90 81 Total Creatine Kinase 30 Troponin I < 0.012 C-Reactive Protein 0.7 NT-Pro-B Natriuret Pep 402 Total Protein 10.6 H 9.5 H Albumin 3.9 3.5 Globulin 6.7 H 6.0 H Albumin/Globulin Ratio 0.6 L 0.6 L Lipase 97 PFSH Medical History (Updated 03/23/24 @ 09:01 by Kermit Galeas MD) Neuroendocrine tumor Surgical History History of bowel resection Social History household members: spouse Smoking Status: Never smoker alcohol intake: current Assessment & Plan Assessment & Plan narrative: 1. Right upper quadrant abdominal pain, present on admission and active. PLAN: -pain control measures. -discuss with surgery. -cholecystectomy today for probable biliary colic. Quality VTE Deep Vein Thrombosis/Pulmonary Embolism Present on Admission: No
[2024-03-23] MEDS: HYDROCODONE/ACET 5/325 TABLET 1 TAB PO (08:02)
[2024-03-23] MEDS: SODIUM CHLORIDE 0.9% FLUSH 10 ML IV (08:54)
--- NOTE | 2024-03-23 08:57 | PM.CN ---
History of Present Illness Consult details Date Patient Seen: 03/23/24 Time Patient Seen: 08:57 Chief complaint: abd pain Narrative: Charlene is an 83-year-old woman who presented to ER last night for several days of upper abdominal pain. Since arriving to our ER she has had a CT scan of the abdomen, an ultrasound of the right upper quadrant and an MRI which have shown cholelithiasis and a significantly distended gallbladder without inflammation. She has had worsening pain with deep breathing. She was also seen in the ER at [facility] within the past week or so and diagnosed with constipation. She has had small-bowel resection for neuroendocrine tumors in proximally 2018 as well as surgery for small bowel obstructions and they partial liver resection. She has also had a ventral incisional hernia repair with mesh. Meds Home Medications and Allergies Home Medications Medication Instructions Recorded Confirmed Type cholecalciferol (vitamin D3) 50 2,000 unit PO Q OTHER DAY ##0 03/03/11 03/22/24 History mcg (2,000 unit) capsule (Vitamin D3) ascorbic acid (vitamin C) 500 mg 500 mg PO DAILY ##0 05/20/13 03/22/24 History tablet vitamin B complex 1 cap PO DAILY ##0 05/20/13 03/22/24 History amlodipine 10 mg tablet 10 mg PO DAILY ##0 12/25/17 03/22/24 History atorvastatin 10 mg tablet (Lipitor) 10 mg PO DAILY ##0 12/25/17 03/22/24 History losartan 100 mg tablet 100 mg PO DAILY ##0 12/25/17 03/22/24 History metoprolol succinate 50 mg 50 mg PO DAILY ##0 12/25/17 03/22/24 History tablet,extended release 24 hr vitamin A 3,000 mcg (10,000 unit) 1 cap PO DAILY ##0 12/25/17 03/22/24 History capsule alendronate 35 mg tablet 35 mg PO QWEEK 08/15/18 03/22/24 History esomeprazole magnesium 40 mg 40 mg PO Q OTHER DAY 11/15/18 03/22/24 History capsule,delayed release (Nexium) ibuprofen 200 mg tablet 200 mg PO TID PRN pain 11/15/18 03/22/24 History lorazepam 0.5 mg tablet 0.5 mg PO BID PRN Anxiety 11/15/18 03/22/24 History escitalopram oxalate 10 mg tablet 10 mg PO DAILY 03/22/24 03/22/24 History Allergies Allergy/AdvReac Type Severity Reaction Status Date / Time No Known Drug Allergies Allergy Verified 09/05/18 21:34 Exam Vital Signs (past 8 hours): - 03/23/24 04:00 Temperature 98.1 F Pulse Rate 71 Respiratory Rate 17 Blood Pressure 124/56 L Pulse Oximetry 98 Oxygen Flow Rate 3 Oxygen Delivery Method Nasal Cannula Oxygen Flow Rate 3 Narrative Exam Narrative: Abdomen is soft, distended Right upper quadrant tender to palpation with a positive Baxter sign There is a midline surgical scar and there was no umbilicus Objective Labs 03/23/24 04:30 03/23/24 04:30 Labs: Laboratory Results - last 24 hr 03/22/24 03/23/24 13:50 04:30 WBC 5.6 3.8 L RBC 2.61 L 2.31 L Hgb 9.0 L 7.9 L Hct 26.5 L 23.7 L MCV 101.6 H 102.3 H MCH 34.4 H 34.3 H MCHC 33.9 33.6 RDW 17.4 H 17.2 H Plt Count 170 145 L Neut % (Auto) 45.4 L 36.3 L Lymph % (Auto) 44.0 H 52.3 H [place] % (Auto) 9.0 9.4 Eos % (Auto) 1.0 L 1.6 L Baso % (Auto) 0.6 0.4 Neut # (Auto) 2500 1400 L Lymph # (Auto) 2500 2000 [place] # (Auto) 500 400 Eos # (Auto) 100 100 Baso # (Auto) 0 0 Sodium 136 L 137 Potassium 3.5 4.5 Chloride 102 105 Carbon Dioxide 27 29 BUN 12 11 Creatinine 0.68 0.74 Estimated GFR > 60 > 60 BUN/Creatinine Ratio 17.6 14.9 Glucose 126 H 121 H Lactate 1.3 Calcium 9.7 8.8 Total Bilirubin 0.6 0.5 AST 29 25 ALT 21 20 Alkaline Phosphatase 90 81 Total Creatine Kinase 30 Troponin I < 0.012 C-Reactive Protein 0.7 NT-Pro-B Natriuret Pep 402 Total Protein 10.6 H 9.5 H Albumin 3.9 3.5 Globulin 6.7 H 6.0 H Albumin/Globulin Ratio 0.6 L 0.6 L Lipase 97 PFSH Medical History (Updated 03/23/24 @ 09:01 by Kermit Galeas MD) Neuroendocrine tumor Surgical History History of bowel resection Social History household members: spouse Tobacco & Substance Use Smoking Status: Never smoker alcohol intake: current Assessment & Plan Assessment and plan (1) Biliary colic: Status: Acute Plan Charlene is an 83-year-old woman with severe biliary colic with cholelithiasis. No need for further imaging or studies. We discussed laparoscopic cholecystectomy and she would like to proceed.
[2024-03-23] MEDS: HYDROMORPHONE 0.5 MG INJ 0.25 MG IV (09:21)
[2024-03-23] MEDS: LORazepam 0.5 MG TABLET PO ×2 (11:54→18:06)
--- NOTE | 2024-03-23 14:31 | SUR.OPER ---
Supine on padded OR bed, head on pillow, arms secured on padded arm boards at <90 degrees abduction, legs uncrossed, safety belt at thigh, tape over blanket over lower legs.
--- NOTE | 2024-03-23 14:55 | CM.DANOTE ---
Initial DCP Assessment Note Pt is a 83 yo female, resident of [place], presents with abd pain, admitted for lap lester- scheduled this afternoon. PCP: Jyoti Prasad Payer: Leobardo RIVERA Reviewed chart, met w/patient and spouse Larry, introduced self and role. Patient overwhelmed this visit, tearful, reports her has some mild memory loss although safe to be alone. Patient indp in all aspects. Patient then reports she just spoke with her son and family. Patient very tearful and unable to communicate what is going on. Strongly encouraged patient to breathe deeply, patient responded and was able to calm self. Anticipate home with family to assist as needed. Likely no needs from this CM team. CM team will plan to follow closely in case any DC needs or concerns arise. KAUR Bosch Discharge Planning/Care Management CM Discharge Assessment Start: 03/23/24 14:53 Freq: Status: Active Protocol: Document 03/23/24 14:53 ELADIO (Rec: 03/23/24 14:55 ELADIO [id number]) Discharge Planning Assessment Assigned Hardness Tester KAUR Murphy DPOA/Assigned Designee Name Larry Henson, spouse Contact Information [phone] cell [phone] home Advance Directives? Yes Advance Directives on File No History Provided By Patient,Significant Other, Medical Record Prior Living Arrangements House Household Members spouse Type of transporation used prior to Drives own vehicle admit Independent with ADL's Yes Is patient alert and oriented? Yes Barriers to Discharge No Discharge Plan Home Transportation Arrangement Spouse Referrals Initiated None needed Additional Comment Will continue to follow for any possible needs or concerns .
[2024-03-23] MEDS: LACTATED RINGERS 1,000 ML 42 ML IV ×2 (14:57→19:37)
[2024-03-23] MEDS: CEFAZOLIN 2 GM/100 ML PREMIX 100 ML IV (15:28)
[2024-03-23] MEDS: BUPIVACAINE 0.5% W/ EPI (PF) 30 ML VIAL INJ (15:29)
--- NOTE | 2024-03-23 16:48 | PM.OP.1 ---
Operative Date/Time/Diagnoses Date of procedure: 03/23/24 Time of procedure: 16:48 Pre-op diagnosis: Acute cholecystitis Post-op diagnosis: same Procedure & Clinicians Procedure: Laparoscopic cholecystectomy Extensive lysis of adhesions Same procedure as scheduled: Yes Surgeon: Kermit Galeas Bracelet Maker Novelty: Axel Arambula Anesthesia Type: General Operative Notes Procedure in detail: The patient was given preoperative antibiotics. The patient was brought to the operating room and placed on the table in the supine position. General endotracheal anesthesia was induced. The abdomen was prepped and draped. A time-out was performed. Because of her history of multiple prior abdominal surgeries and multiple prior ventral incisional hernia repairs with mesh the decision was made to perform a cut down in the left upper quadrant. A 1 cm incision was created and dissection was carried down to the anterior sheath. The anterior sheath was divided with cautery in a transverse fashion. The rectus muscle was bluntly split with Peon clamps and the posterior sheath was grasped and elevated between clamps. The posterior sheath was cut with Emigdio scissors and the abdomen was entered atraumatically. A 12 mm port was then inserted and the abdomen was insufflated to 15 mmHg. The camera was inserted and there was no evidence of an injury from the entry. Multiple adhesions of visceral adipose tissue were noted in the vicinity of the prior hernia repair. We placed 2 5 mm ports in the right upper abdomen along with a subxiphoid port under direct vision. When additional 5 mm port was added to the right upper quadrant to allow exposure for dissection of the adhesions to the anterior midline. We started to carefully take down the adhesions using sharp and blunt dissection. A loop of transverse colon was noted adherent to the anterior abdominal wall. This was dissected proximally 2 cm away from the upper portion of the prior hernia repair site. This allowed a 12 mm Alcala port to be placed in the usual location to perform a laparoscopic cholecystectomy. The patient was then positioned in reverse Trendelenburg and the table was tilted to the left. The gallbladder was grasped at the dome and retracted cephalad. It was quite full but not tense and minimally inflamed. We then dissected the cystic structures with a combination of hook cautery and blunt dissection. We placed clips on the cystic duct and artery and divided the cystic duct and artery sharply between the clips. The gallbladder was then dissected off the liver. At the most peripheral aspect of the liver bed there was some nodular tissue between the liver and the gallbladder. Additional liver tissue was resected along with the gallbladder to encompass this abnormal appearing tissue. There was some bleeding from the liver bed which was cauterized. We placed a 15 round Mikael drain through 1 of the right lateral ports and laid it in the liver bed. We irrigated the right upper quadrant and all the aspirate returned clear. We then removed the 5 mm ports under direct vision we removed the Chava port. We then injected some local into the fascia and closed the to 12 mm fascial defects with 2 interrupted 0 Vicryl sutures. The skin incisions were closed with 4-0 Monocryl and Steri-Strips were applied. Band-Aids were applied over the Steri-Strips. EBL: 50 mL Specimen: Gallbladder and contents Axel DOMINIQUE provided assistance with exposure, retraction and closure of incisions. Post-operative Condition: stable Disposition: PACU
[2024-03-23] MEDS: ACETAMINOPHEN 325 MG TABLET 650 MG PO (17:23)
[2024-03-23] MEDS: OXYCODONE IR 5 MG TABLET PO (17:23)
[2024-03-23] MEDS: ESCITALOPRAM 10 MG TABLET PO (19:33)
[2024-03-23] MEDS: BENZOCAINE/MENTHOL 1 LOZ PKT 1 EACH PO (20:42)
[2024-03-23] MEDS: SENNOSIDES 8.6 MG TABLET 17.2 MG PO (20:42)
[2024-03-24] VITALS (9 sets, daily range): BP systolic 154–177; BP diastolic 70–87; PULSE 83–94; RESP 16–20; TEMP 36.4–37.2; O2SAT 92–98
[2024-03-24 04:12] LABS: Alanine Aminotransferase 34 IU/L (<35); Albumin 3.5 g/dL (3.5-5.0); Albumin Globulin Ratio 0.6 (1.0-2.8); Alkaline Phosphatase 78 U/L (38-126); Aspartate Aminotransferase 45 IU/L (14-36); BUN Creatinine Ratio 15.3 (6-22); Bilirubin Total 0.5 mg/dL (0.2-1.3); Blood Urea Nitrogen 9 mg/dL (7-17); Calcium 8.9 mg/dL (8.4-10.2); Carbon Dioxide 29 mmol/L (22-32); Chloride 99 mmol/L (98-107); Estimated Glomerular Filt Rate > 60 mL/min (>60); Globulin 5.8 g/dL (1.7-4.1); Glucose 172 mg/dL (80-110); HEMOLYSIS < 15 (0-50); Potassium 3.9 mmol/L (3.4-5.1); Sodium 133 mmol/L (137-145); Total Protein 9.3 g/dL (6.3-8.2)
[2024-03-24 04:33] LABS: Add Manual Diff / Slide Review NO; Basophils Absolute Auto 0 /uL (0-100); Basophils Percent Auto 0.3 % (0-2); Eosinophils Absolute Auto 0 /uL (0-450); Eosinophils Percent Auto 0.3 % (2-4); Hematocrit 23.6 % (36-46); Hemoglobin 8.1 g/dL (12.0-16.0); Lymphocytes Absolute Auto 1400 /uL (1100-4500); Lymphocytes Percent Auto 35.2 % (25-40); Mean Corpuscular HGB Conc 34.3 % (30-36); Mean Corpuscular Hemoglobin 34.8 PG (26-34); Mean Corpuscular Volume 101.6 fL (80-100); Monocytes Absolute Auto 300 /uL (0-900); Monocytes Percent Auto 7.1 % (3-14); Neutrophils Absolute Auto 2300 /uL (1500-7000); Neutrophils Percent Auto 57.1 % (50-75); Platelet Count 141 X10^3/uL (150-400); Red Blood Cell Count 2.32 X10^6/uL (4.0-5.2); White Blood Cell Count 4.1 X10^3/uL (4.5-11.0)
[2024-03-24] MEDS: PANTOPRAZOLE DR 20 MG TABLET 40 MG PO (06:27)
[2024-03-24] MEDS: HYDROCODONE/ACET 5/325 TABLET 1 TAB PO ×3 (07:21→21:50)
[2024-03-24] MEDS: ESCITALOPRAM 10 MG TABLET PO (08:27)
[2024-03-24] MEDS: SODIUM CHLORIDE 0.9% FLUSH 10 ML IV ×2 (08:27→21:51)
--- NOTE | 2024-03-24 10:58 | DIET.CONS2 ---
Dietary Inpatient Consultation Note Admission Date: 03/22/2024 21:41 83 y F admitted for abdominal pain, had a lap lester. Nutrition screened for low MNA. Met with pt at bedside. Reports around two weeks of abdominal pain and eating a softer diet (mashed potatoes, tender meats, mac and cheese, etc). Normal appetite outside of these two weeks. She reports a gradual, intentional weight loss from 158 lb to her goal weight of 150 lb (71.8 to 68.1 kg) that occurred before these past 2 weeks. Eats 2 meals per day with adequate protein source (eggs, cottage cheese, lean meats) and snack at night. No significant weight loss noted. Will monitor for diet advancement and po intakes. F/u prn. Diet: 03/23/24 Dinner Clear Liquid Diet Diet Modifications: Nutrition Percent Meal Consumed 0% 03/23/24 09:58 Electronically Signed by: Elvira Hale 03/24/24 10:58 Clinical Dietitian [address] [id number]
--- NOTE | 2024-03-24 11:27 | PM.PN.1 ---
Subjective Subjective Interval history: She is having intermittent left upper quadrant cramping which is quite uncomfortable. No nausea or vomiting. No dyspnea. Exam Vital Signs (past 8 hours): - 03/24/24 05:38 03/24/24 07:00 03/24/24 08:50 Temperature 97.5 F L 97.7 F Pulse Rate 93 H 88 Respiratory Rate 20 16 Blood Pressure 175/81 H 168/78 H Pulse Oximetry 94 96 96 Oxygen Delivery Method Room Air Oxygen Flow Rate 0 0 Oxygen Delivery Method Room Air Oxygen Flow Rate 0 Narrative Exam Narrative: NAD, alert and oriented. Fluent speech. Lungs are clear, normal rate and effort. Heart is regular, no murmur gallop or rub. Abdomen is soft, non distended. Extremities are free of edema. Intermittently very uncomfortable with her cramping. Objective Labs 03/24/24 03:30 03/24/24 03:30 Labs: Laboratory Results - last 24 hr 03/24/24 03:30 WBC 4.1 L RBC 2.32 L Hgb 8.1 L Hct 23.6 L MCV 101.6 H MCH 34.8 H MCHC 34.3 RDW 17.0 H Plt Count 141 L Neut % (Auto) 57.1 D Lymph % (Auto) 35.2 [place] % (Auto) 7.1 Eos % (Auto) 0.3 L Baso % (Auto) 0.3 Neut # (Auto) 2300 Lymph # (Auto) 1400 [place] # (Auto) 300 Eos # (Auto) 0 Baso # (Auto) 0 Sodium 133 L Potassium 3.9 Chloride 99 Carbon Dioxide 29 BUN 9 Creatinine 0.59 Estimated GFR > 60 BUN/Creatinine Ratio 15.3 Glucose 172 H Calcium 8.9 Total Bilirubin 0.5 AST 45 H ALT 34 Alkaline Phosphatase 78 Total Protein 9.3 H Albumin 3.5 Globulin 5.8 H Albumin/Globulin Ratio 0.6 L PFSH Medical History Neuroendocrine tumor Surgical History History of bowel resection Social History household members: spouse Smoking Status: Never smoker alcohol intake: current Assessment & Plan Assessment & Plan narrative: 1. POD 1 Lap lester, with significant intermittent left upper quadrant cramping abdominal pain. Present on admission and active. 2. Anxiety, present on admission and active. Plan: -we will continue a clear liquid diet until discussion with Dr. Galeas. -she does not appear to be stable enough for discharge and will require require a 2nd midnight of hospital service to observe and treat her intermittent abdominal pain. -we will use Ativan as needed for her acute on chronic anxiety. Estimated date of discharge will be March 25 pending improvement of her abdominal pain and ability to advance diet. Quality VTE Deep Vein Thrombosis/Pulmonary Embolism Present on Admission: No
[2024-03-24] MEDS: LORazepam 0.5 MG TABLET PO ×2 (11:52→17:23)
[2024-03-24] MEDS: ACETAMINOPHEN 325 MG TABLET 650 MG PO (11:52)
--- NOTE | 2024-03-24 13:55 | CM.DPNOTE ---
VANESSA Cont Met w/patient to review discharge plan. Patient reports that she is struggling with the fact that her of 65+ years has dementia and reports worry about his well being; spouse's sister Rose Marie is available to assist spouse as needed once patient returns home. Patient has no additional immediate assistance; son lives out of state- patient reports son hopes to be able to visit soon. Daughter lives in [place] and can visit in a few weeks. Discussed home health services and patient agreeable. No agency preference. CHARLA Thomson, kindly agreed to send referral to [facility] as they accept patient's [employer] insurance; provided completed and signed F2F with order for this referral. In addition, provided senior resource guide and brochures for in home care to patient; patient states appreciation. Patient with noticeable anxiety during this visit, complaining of abd. cramping. RN and provider aware, patient has scheduled ativan ordered to assist with acute on chronic anxiety. Plan: Anticipate discharge home w/spouse, family, friends. [facility] RN/PT/OT/SEMICONDUCTOR PROCESSING TECHNICIAN/MANAGER COPY, spouse will consider in home care options to assist with spouse's care. ELADIO
[2024-03-24] MEDS: HEPARIN 5,000 UNIT/ML VIAL 5000 UNIT SUBCUT (15:13)
[2024-03-24] MEDS: SENNOSIDES 8.6 MG TABLET 17.2 MG PO (21:50)
[2024-03-25] VITALS (10 sets, daily range): BP systolic 120–190; BP diastolic 61–81; PULSE 65–83; RESP 16–18; TEMP 36.3–36.8; O2SAT 91–96
[2024-03-25] MEDS: LORazepam 0.5 MG TABLET PO ×3 (02:30→21:51)
[2024-03-25] MEDS: HYDROCODONE/ACET 5/325 TABLET 1 TAB PO ×4 (02:30→20:46)
[2024-03-25] MEDS: AMLODIPINE 5 MG TABLET 10 MG PO (03:58)
[2024-03-25] MEDS: LOSARTAN 50 MG TABLET 100 MG PO (03:58)
[2024-03-25 05:40] LABS: Add Manual Diff / Slide Review NO; Basophils Absolute Auto 0 /uL (0-100); Basophils Percent Auto 0.3 % (0-2); Eosinophils Absolute Auto 0 /uL (0-450); Eosinophils Percent Auto 0.3 % (2-4); Hematocrit 23.2 % (36-46); Hemoglobin 7.9 g/dL (12.0-16.0); Lymphocytes Absolute Auto 1800 /uL (1100-4500); Lymphocytes Percent Auto 46.7 % (25-40); Mean Corpuscular HGB Conc 33.9 % (30-36); Mean Corpuscular Hemoglobin 34.5 PG (26-34); Mean Corpuscular Volume 101.9 fL (80-100); Monocytes Absolute Auto 400 /uL (0-900); Monocytes Percent Auto 9.2 % (3-14); Neutrophils Absolute Auto 1700 /uL (1500-7000); Neutrophils Percent Auto 43.5 % (50-75); Platelet Count 167 X10^3/uL (150-400); Red Blood Cell Count 2.27 X10^6/uL (4.0-5.2); White Blood Cell Count 3.8 X10^3/uL (4.5-11.0)
[2024-03-25] MEDS: HYDRALAZINE 20 MG/ML VIAL 10 MG IV (06:39)
[2024-03-25] MEDS: METOPROLOL ER 50 MG TABLET PO (06:40)
[2024-03-25] MEDS: PANTOPRAZOLE DR 20 MG TABLET 40 MG PO (06:40)
--- NOTE | 2024-03-25 07:31 | PC.NURSE ---
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 Difficult for patient to take deep breath or cough d/t pain. Patient stated that her pain is mostly fine at rest, however she gets intense muscle spasms in the LUQ that seem to be triggered when talking or turning. Abdomen is mildly distended and tender, passing gas, denies N/V. Ambulated in the hallway twice overnight, 1 PA w/ FWW. Patient stated she was experiencing some anxiety overnight, requested Ativan x1. at the bedside providing emotional support. Oriented to call-light. Plan of care ongoing.
[2024-03-25] MEDS: ESCITALOPRAM 10 MG TABLET PO (09:05)
[2024-03-25] MEDS: ATORVASTATIN 20 MG TABLET 10 MG PO (09:05)
[2024-03-25] MEDS: HEPARIN 5,000 UNIT/ML VIAL 5000 UNIT SUBCUT ×2 (09:07→20:35)
[2024-03-25] MEDS: SODIUM CHLORIDE 0.9% FLUSH 10 ML IV ×2 (09:09→20:36)
[2024-03-25] MEDS: methocarbamoL 500 MG TABLET PO ×2 (11:00→20:46)
[2024-03-25] MEDS: LIPASE/PROTEASE/AMYLASE 5/17/24 CAP PO (12:12)
[2024-03-25] MEDS: BISACODYL 5 MG TABLET 10 MG PO (12:12)
[2024-03-25] MEDS: DOCUSATE 100 MG CAPSULE PO ×2 (12:13→20:35)
[2024-03-25 12:53] LABS: Alanine Aminotransferase 29 IU/L (<35); Albumin 3.3 g/dL (3.5-5.0); Albumin Globulin Ratio 0.6 (1.0-2.8); Alkaline Phosphatase 73 U/L (38-126); Aspartate Aminotransferase 39 IU/L (14-36); BUN Creatinine Ratio 21.1 (6-22); Bilirubin Total 0.5 mg/dL (0.2-1.3); Blood Urea Nitrogen 16 mg/dL (7-17); Calcium 8.6 mg/dL (8.4-10.2); Carbon Dioxide 32 mmol/L (22-32); Chloride 99 mmol/L (98-107); Estimated Glomerular Filt Rate > 60 mL/min (>60); Globulin 5.5 g/dL (1.7-4.1); Glucose 125 mg/dL (80-110); HEMOLYSIS < 15 (0-50); Potassium 3.2 mmol/L (3.4-5.1); Sodium 135 mmol/L (137-145); Total Protein 8.8 g/dL (6.3-8.2)
--- NOTE | 2024-03-25 16:13 | DI.RAD.S_ITS ---
PROCEDURE: XR ABDOMEN 1V INDICATIONS: abdominal distension, cramping, recent lap lester TECHNIQUE: One view of the abdomen acquired. COMPARISON: [facility], CT, CT ABDOMEN PELVIS W CON, 03/22/2024, 14:06. FINDINGS: Surgical changes and devices: None. Bowel: Bowel gas pattern is normal. Soft tissues: No suspicious abdominal calcifications. Visualized solid organ contours appear normal in size. Bones: No suspicious bony lesions. IMPRESSION: Nonobstructive bowel gas pattern. If clinical symptoms persist or clinical suspicion for pathology is high, consider CT for further evaluation. Dictated by: Tye Sal M.D. on 03/25/2024 at 17:07 Approved by: Tye Sal M.D. on 03/25/2024 at 17:09
--- NOTE | 2024-03-25 16:19 | PM.PN.1 ---
Subjective Subjective Interval history: She is having intermittent left upper quadrant cramping which is quite uncomfortable. It is spasm like, cramping. Seems to be worse with movement. She has not had a bowel movement in multiple days. She is passing gas. No nausea or vomiting. No dyspnea. Exam Vital Signs (past 8 hours): - 03/25/24 08:33 03/25/24 11:49 03/25/24 15:00 Temperature 97.6 F 97.7 F 98.3 F Pulse Rate 82 66 67 Respiratory Rate 18 18 Blood Pressure 120/69 134/61 151/78 H Pulse Oximetry 94 93 92 Oxygen Flow Rate 0 0 Oxygen Delivery Method Room Air Oxygen Flow Rate 0 Narrative Exam Narrative: NAD, alert and oriented. Fluent speech. Lungs are clear, normal rate and effort. Heart is regular, no murmur gallop or rub. Abdomen is soft, non distended. Extremities are free of edema. Intermittently very uncomfortable with her cramping. Objective Labs 03/25/24 05:09 03/25/24 05:09 Labs: Laboratory Results - last 24 hr 03/25/24 05:09 WBC 3.8 L RBC 2.27 L Hgb 7.9 L Hct 23.2 L MCV 101.9 H MCH 34.5 H MCHC 33.9 RDW 17.0 H Plt Count 167 Neut % (Auto) 43.5 L Lymph % (Auto) 46.7 H [place] % (Auto) 9.2 Eos % (Auto) 0.3 L Baso % (Auto) 0.3 Neut # (Auto) 1700 Lymph # (Auto) 1800 [place] # (Auto) 400 Eos # (Auto) 0 Baso # (Auto) 0 Sodium 135 L Potassium 3.2 L Chloride 99 Carbon Dioxide 32 BUN 16 Creatinine 0.76 Estimated GFR > 60 BUN/Creatinine Ratio 21.1 Glucose 125 H Calcium 8.6 Total Bilirubin 0.5 AST 39 H ALT 29 Alkaline Phosphatase 73 Total Protein 8.8 H Albumin 3.3 L Globulin 5.5 H Albumin/Globulin Ratio 0.6 L PFSH Medical History Neuroendocrine tumor Surgical History History of bowel resection Social History household members: spouse Smoking Status: Never smoker alcohol intake: current Assessment & Plan Assessment & Plan narrative: 1. POD 1 Lap lester, with significant intermittent left upper quadrant cramping abdominal pain. Present on admission and active. 2. Anxiety, present on admission and active. 3. Chronic anemia, stable 4. HTN, chronic Plan: -advanced to regular diet -attempted pancrealipase, without improvement. -check abd xray to r/o ileus or obstruction, aggressively given laxitives today as well. Consider enema. -robaxin added for possible muscle spasm. -we will use Ativan as needed for her acute on chronic anxiety. If unremarkable workup can likely discharge tomorrow, depending on improvement in abdominal pain still. Quality VTE Deep Vein Thrombosis/Pulmonary Embolism Present on Admission: No
--- NOTE | 2024-03-25 16:31 | CM.DPNOTE ---
DC Note Discharge home w/spouse, family, [facility] RN/PT/OT/SKIN THERAPIST/WET END SUPERVISOR. resources for rn long term care care (to assist with spouse's care) provided. ELADIO
[2024-03-25] MEDS: POTASSIUM CHLORIDE 20 MEQ TAB 40 MEQ PO ×2 (16:45→21:51)
[2024-03-25] MEDS: SENNOSIDES 8.6 MG TABLET 17.2 MG PO (20:35)
[2024-03-26 03:20] VITALS: BP 146/64; PULSE 71; RESP 20; TEMP 36.4; O2SAT 90
[2024-03-26 05:37] LABS: Add Manual Diff / Slide Review NO; Basophils Absolute Auto 0 /uL (0-100); Basophils Percent Auto 0.3 % (0-2); Eosinophils Absolute Auto 0 /uL (0-450); Eosinophils Percent Auto 1.1 % (2-4); Hematocrit 22.4 % (36-46); Hemoglobin 7.7 g/dL (12.0-16.0); Lymphocytes Absolute Auto 2100 /uL (1100-4500); Lymphocytes Percent Auto 53.1 % (25-40); Mean Corpuscular HGB Conc 34.4 % (30-36); Mean Corpuscular Hemoglobin 34.8 PG (26-34); Mean Corpuscular Volume 101.1 fL (80-100); Monocytes Absolute Auto 400 /uL (0-900); Neutrophils Absolute Auto 1400 /uL (1500-7000); Neutrophils Percent Auto 35.5 % (50-75); Platelet Count 168 X10^3/uL (150-400); Red Blood Cell Count 2.22 X10^6/uL (4.0-5.2); White Blood Cell Count 3.9 X10^3/uL (4.5-11.0)
[2024-03-26 05:54] LABS: BUN Creatinine Ratio 24.7 (6-22); Blood Urea Nitrogen 18 mg/dL (7-17); Calcium 8.8 mg/dL (8.4-10.2); Carbon Dioxide 31 mmol/L (22-32); Chloride 98 mmol/L (98-107); Estimated Glomerular Filt Rate > 60 mL/min (>60); Glucose 123 mg/dL (80-110); HEMOLYSIS < 15 (0-50); Sodium 132 mmol/L (137-145)
[2024-03-26] MEDS: PANTOPRAZOLE DR 20 MG TABLET 40 MG PO (06:54)
[2024-03-26 07:00] VITALS: O2SAT 96
[2024-03-26 08:00] VITALS: BP 144/60; PULSE 69; RESP 18; TEMP 36.5; O2SAT 96
[2024-03-26] MEDS: DOCUSATE 100 MG CAPSULE PO (09:01)
[2024-03-26] MEDS: ATORVASTATIN 20 MG TABLET 10 MG PO (09:01)
[2024-03-26] MEDS: polyethylene glycoL 3350 17 GM POWD.PACK PO (09:01)
[2024-03-26 09:02] VITALS: BP 144/60; PULSE 69
[2024-03-26] MEDS: METOPROLOL ER 50 MG TABLET PO (09:02)
[2024-03-26] MEDS: methocarbamoL 500 MG TABLET PO (09:02)
[2024-03-26] MEDS: ESCITALOPRAM 10 MG TABLET PO (09:02)
[2024-03-26] MEDS: HEPARIN 5,000 UNIT/ML VIAL 5000 UNIT SUBCUT (09:03)
[2024-03-26] MEDS: SODIUM CHLORIDE 0.9% FLUSH 10 ML IV (09:03)
--- NOTE | 2024-03-26 10:38 | PM.DS.1 ---
History of Present Illness History of Present Illness Date Patient Seen: 03/26/24 Time Patient Seen: 10:39 Chief complaint: abd pain Narrative: Per admitting provider, The pt is a 83 yo with a 9 day hx of RUQ abdominal pain the is constant- day and night, sharp, rated the pain as a 8-9 and non-radiating. She has been to the ER several times since onset and was initially told she was constipated and was given enemas and laxative with good results. She has been taking some type of pain meds at home which she does not know the name of. There is no nausea or vomiting, but she has been taking a very limited diet, for unknown reasons. The pt states she has been having continued hard stools since the ER visits, last Thursday she saw her PCP at [facility] and was told not to take a laxative, Discharge Providers Provider Date of admission: 03/22/24 21:41 Discharge Date: 03/26/24 Primary care physician: Jyoti Prasad MD Consults: 03/22/24 21:08 Consult to General Surgery Stat Comment: Consulting Provider: Armida Quintanilla Reason for consultation: abdominal pain Has provider been notified: Yes 03/22/24 21:55 Consult to Physician Routine Comment: Consulting Provider: Armida Quintanilla Reason for consultation: abd pain Has provider been notified: Yes 03/24/24 11:04 Consult to Home Health Routine Comment: Reason For Exam: Home health services upon discharge Discharge provider: Du Figueroa DO Summary Hospital Course Discharge Diagnosis: 1. POD 1 Lap lester, with significant intermittent left upper quadrant cramping abdominal pain. Present on admission and active. 2. Anxiety, present on admission and active. 3. Acute blood loss anemia secondary to surgery, in setting of chronic anemia, stable 4. HTN, chronic Hospital Course: This is an 83 year old female with PMH of HTN, anxiety, anemia who presented with cramping epigastric abdominal pain. She had been seen in an outside hospital previously, thought to be constipated. She was evaluated by surgery for possible biliary cholic and had her laparoscopic cholecystectomy here. After surgery her cramping abdominal pain continued. She was started on muscle relaxants, attempted pancreatic enzymes without effect, and started on aggressive laxitive therapy. With 3 laxitives she is documented to have had two bowel movements with continued gas and improvement in her abdominal cramping. She was continued on muscle relaxant and laxitive therapy upon discharge. No other medication changes are recommended upon discharge. Time Spent with Patient Time spent: Greater than 30 minutes Exam Vital Signs (past 8 hours): - 03/26/24 03:20 03/26/24 07:00 03/26/24 08:00 Temperature 97.5 F L 97.7 F Pulse Rate 71 69 Respiratory Rate 20 18 Blood Pressure 146/64 H 144/60 H Pulse Oximetry 90 L 96 96 Oxygen Delivery Method Room Air Oxygen Flow Rate 0 0 03/26/24 09:02 03/26/24 09:15 Temperature Pulse Rate 69 Respiratory Rate Blood Pressure 144/60 H Pulse Oximetry Oxygen Delivery Method Room Air Oxygen Flow Rate Oxygen Delivery Method Room Air Oxygen Flow Rate 0 Narrative Exam Narrative: NAD, alert and oriented. Fluent speech. Lungs are clear, normal rate and effort. Heart is regular, no murmur gallop or rub. Abdomen is soft, non distended. Extremities are free of edema. No cramping noted during examination today. Objective Labs 03/26/24 04:49 03/26/24 04:49 Labs: Laboratory Results - last 24 hr 03/25/24 03/26/24 05:09 04:49 WBC 3.9 L RBC 2.22 L Hgb 7.7 L Hct 22.4 L MCV 101.1 H MCH 34.8 H MCHC 34.4 RDW 17.0 H Plt Count 168 Neut % (Auto) 35.5 L Lymph % (Auto) 53.1 H [place] % (Auto) 10.0 Eos % (Auto) 1.1 L Baso % (Auto) 0.3 Neut # (Auto) 1400 L Lymph # (Auto) 2100 [place] # (Auto) 400 Eos # (Auto) 0 Baso # (Auto) 0 Sodium 135 L 132 L Potassium 3.2 L 4.0 Chloride 99 98 Carbon Dioxide 32 31 BUN 16 18 H Creatinine 0.76 0.73 Estimated GFR > 60 > 60 BUN/Creatinine Ratio 21.1 24.7 H Glucose 125 H 123 H Calcium 8.6 8.8 Total Bilirubin 0.5 AST 39 H ALT 29 Alkaline Phosphatase 73 Total Protein 8.8 H Albumin 3.3 L Globulin 5.5 H Albumin/Globulin Ratio 0.6 L [facility] Medical History Neuroendocrine tumor Surgical History History of bowel resection Social History household members: spouse Smoking Status: Never smoker alcohol intake: current Discharge Plan Discharge Plan Patient Disposition: Home Provider Discharge Comment: You were admitted to the hospital with abdominal pain. You had your gallbladder removed. ongoing pain may be related to constipation or muscle spasms. Discharge orders & Medications Prescriptions: New docusate sodium 100 mg tablet 100 mg PO BID PRN (Reason: constipation) 15 Days Qty: 30 0RF polyethylene glycol 3350 17 gram powder in packet 17 g PO DAILY 30 Days Qty: 30 0RF bisacodyl 5 mg tablet 5 mg PO BEDTIME 7 Days Qty: 7 0RF methocarbamol 500 mg tablet 500 mg PO QID PRN (Reason: muscle spasm) 7 Days Qty: 28 0RF sennosides [senna] 8.6 mg tablet 8.6 mg PO BID PRN (Reason: constipation) 30 Days Qty: 30 0RF Continued cholecalciferol (vitamin D3) [Vitamin D3] 2,000 unit Capsule 2,000 unit PO Q OTHER DAY Qty: 0 ascorbic acid (vitamin C) 500 MG tablet 500 mg PO DAILY Qty: 0 vitamin B complex Capsule 1 cap PO DAILY Qty: 0 amlodipine 10 MG tablet 10 mg PO DAILY Qty: 0 atorvastatin [Lipitor] 10 MG tablet 10 mg PO DAILY Qty: 0 losartan 100 MG tablet 100 mg PO DAILY Qty: 0 metoprolol succinate 50 MG tablet extended release 24 hr 50 mg PO DAILY Qty: 0 vitamin A 3,000 mcg (10,000 unit) Capsule 1 cap PO DAILY Qty: 0 alendronate 35 mg Tablet 35 mg PO QWEEK lorazepam 0.5 mg tablet 0.5 mg PO BID PRN (Reason: Anxiety) Patient Comments: TK 1 T PO BID PRN esomeprazole magnesium [Nexium] 40 mg Capsule,Delayed Release(Dr/Ec) 40 mg PO Q OTHER DAY ibuprofen 200 mg Tablet 200 mg PO TID PRN (Reason: pain) escitalopram oxalate 10 mg tablet 10 mg PO DAILY Follow up/Referrals: Jyoti Prasad MD [Primary Care Provider] - Diet/Activity/Treatments Diet: Diet as Tolerated and Low-fat Activity: As tolerated, no restrictions Visit Report/Discharge Packet Instructions: DI for Laparoscopic Cholecystectomy Stand Alone Forms: Patient Portal/API, Stroke Signs & Symptoms Discharge Data Primary Care Provider: Jyoti Prasad Attending Provider: Avery Rivera Admit Date/Time: 03/22/24 21:41 Quality VTE Deep Vein Thrombosis/Pulmonary Embolism Present on Admission: No
[2024-03-26] MEDS: HYDROCODONE/ACET 5/325 TABLET 1 TAB PO (11:21)
--- NOTE | 2024-03-26 11:59 | CM.DPC ---
Addendum entered by Chen Josue R.N. 03/26/24 12:40: Outgoing faxes not going through, faxed over DC Summary via right fax. Original Note: DCP Cont: Patient did not discharge today, hospitalist indicated that he felt that most of her pain is spasms, and after speaking to patient yesterday, decided to keep her another day. Called over at [facility] and updated Ewelina, that patient had not discharged yesterday, but should dc today. Well send her an updated DC Summary, confirmed that they do accept [employer]. P: Patient is discharging home today, will send updated DC Summary to [facility]. Chen Josue RN/[employer] Manager
--- NOTE | 2024-03-26 13:05 | PC.NURSE ---
Pt discharged home at 1305, escorted off floor in wheelchair accompanied by spouse and hospital staff. IV removed, discharge teaching provided including new medications, follow up appointments and wound care. Questions answered, concerns addressed, medications reviewed. Patient left the floor with all belongings.
--- NOTE | 2024-03-29 09:35 | CM.SWNOTE ---
Received msg after hours from pt sounding very anxious, has not heard from [facility]. Called [facility], they will f/u with her later this morning and get her scheduled for intake visit.
== END 2024-03-26 13:06 | disposition home or self-care (01) ==
LOC: ED 20:49 → AC 21:42
PROVIDERS: Hospitalist; Internal Medicine; Surgery; Admitting Provider Internal Medicine; Emergency Provider Student in an Organized Health Care Education/Training Program; PCP Internal Medicine; Referring Provider Emergency Medicine; Visit Provider Internal Medicine
PROC: 0FT44ZZ Resection of Gallbladder, Percutaneous Endoscopic Approach (ICD-10-PCS; CPT 47562; principal; 2024-03-23 14:00)
DX: K81.0 Acute cholecystitis (principal); K66.0 Peritoneal adhesions (postprocedural) (postinfection); F41.9 Anxiety disorder, unspecified; D64.89 Other specified anemias; I10 Essential (primary) hypertension
CPT/HCPCS: 47562; 36415; 71046; 74018; 74177; 74183; 76705; 80048; 80053; 81003; 82550; 83605; 83690; 83880; 84484; 85025; 86140; 93005; 93010; 96361; 96374; 96375; 96376; 99285; G0378; A9270; A9579; J0360; J0690; J1100; J1170; J1644; J1885; J2060; J2270; J2405; J2704; J3010; Q9967

== ENCOUNTER 2024-03-30 10:44 | Observation (INO) | payer OTHER, SELFPAY ==
[2024-03-22 22:37] VITALS: BMI 32.9
[2024-03-30] VITALS (18 sets, daily range): BP systolic 124–217; BP diastolic 64–100; PULSE 78–106; RESP 12–22; TEMP 36.6–36.8; O2SAT 92–98; BMI 29.2; BMI 26.7
--- NOTE | 2024-03-30 10:54 | DI.RAD.S_ITS ---
PROCEDURE: XR CHEST 1V INDICATIONS: suspected sepsis TECHNIQUE: One view of the chest was acquired. COMPARISON: [facility], CR, XR CHEST 2V, 03/22/2024, 14:10. FINDINGS: Surgical changes and devices: None. Lungs and pleura: Lungs are clear. No pleural effusions or pneumothorax. Mediastinum: Mediastinal contours appear normal. Cardiomegaly with a left ventricular configuration. Bones and chest wall: No suspicious bony lesions. Overlying soft tissues appear unremarkable. IMPRESSION: Cardiomegaly. No gross infiltrates. Dictated by: Grady Bocanegra M.D. on 03/30/2024 at 11:19 Approved by: Grady Bocanegra M.D. on 03/30/2024 at 11:19
--- NOTE | 2024-03-30 10:55 | ED_ITS ---
HPI - Abdominal Pain General Chief Complaint: Abdominal Pain Stated Complaint: pain upper abd pain Time Seen by Provider: 03/30/24 10:52 Source: patient Mode of arrival: Wheelchair History of Present Illness HPI narrative: 83-year-old female with history of neuroendocrine tumors with resection, diverticulitis, prior small bowel obstruction, nephrolithiasis, hypertension and dyslipidemia on aspirin 81 mg daily who presents with complaint of increasing abdominal/right upper quadrant pain patient states she thought she had a bowel obstruction was seen at [facility] several times ultimately was seen here had cholecystectomy for cholecystitis as well as lysis of adhesions on 03/23/[address] Galeas. Patient states her pain has been improving she has been taking Tylenol and ibuprofen for the pain but significantly worsened today. She states like feels like something clamped down. She had subjective fever at home today. She denies any vomiting. She states she has been having liquidy stools, they have not been black or bloody. She states she is urinating without issue. She states pain is across her upper abdomen but localized to the right side, goes a little bit to her back today. Patient states her incision seemed to be healing well she has not noticed any redness or drainage or opening up of the incisions. Patient states she has been taking her regular medications along with several stool softeners and a muscle relaxer. 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 She has not had any additional several years. No known drug allergies. New tobacco, no regular alcohol, no recreational drugs. Dr. Jyoti Prasad is her primary care physician. She follows with Dr. Petersen at [facility] for her neuroendocrine tumors. Related Data Home Medications Medication Instructions Recorded Confirmed cholecalciferol (vitamin D3) 50 2,000 unit PO Q OTHER DAY ##0 03/03/11 03/30/24 mcg (2,000 unit) capsule (Vitamin D3) ascorbic acid (vitamin C) 500 mg 500 mg PO DAILY ##0 05/20/13 03/30/24 tablet vitamin B complex 1 cap PO DAILY ##0 05/20/13 03/30/24 amlodipine 10 mg tablet 10 mg PO DAILY ##0 12/25/17 03/30/24 atorvastatin 10 mg tablet (Lipitor) 10 mg PO DAILY ##0 02/16/18 05/22/24 losartan 100 mg tablet 100 mg PO DAILY ##0 12/25/17 03/30/24 metoprolol succinate 50 mg 50 mg PO DAILY ##0 12/25/17 03/30/24 tablet,extended release 24 hr vitamin A 3,000 mcg (10,000 unit) 1 cap PO DAILY ##0 12/25/17 03/30/24 capsule alendronate 35 mg tablet 35 mg PO QWEEK 08/15/18 03/30/24 esomeprazole magnesium 40 mg 40 mg PO Q OTHER DAY 11/15/18 03/30/24 capsule,delayed release (Nexium) ibuprofen 200 mg tablet 200 mg PO TID PRN pain 11/15/18 03/30/24 lorazepam 0.5 mg tablet 0.5 mg PO BID PRN Anxiety 11/15/18 03/30/24 escitalopram oxalate 10 mg tablet 10 mg PO DAILY 03/22/24 03/30/24 Previous Rx's Medication Instructions Recorded bisacodyl 5 mg tablet 5 mg PO BEDTIME 7 days #7 tabs 03/26/24 docusate sodium 100 mg tablet 100 mg PO BID PRN constipation 15 03/26/24 days #30 tabs methocarbamol 500 mg tablet 500 mg PO QID PRN muscle spasm 7 03/26/24 days #28 tabs polyethylene glycol 3350 17 gram 17 g PO DAILY 30 days #30 ea 03/26/24 oral powder packet sennosides 8.6 mg tablet (senna) 8.6 mg PO BID PRN constipation 30 03/26/24 days #30 tabs Allergies Allergy/AdvReac Type Severity Reaction Status Date / Time No Known Drug Allergies Allergy Verified 03/30/24 10:54 Review of Systems Review of Systems ROS Unobtainable: All systems reviewed & are unremarkable except as noted in HPI and below Patient History Medical History (Updated 03/30/24 @ 13:07 by Latisha Jung DO) Neuroendocrine tumor Surgical History (Updated 03/30/24 @ 13:07 by Latisha Jung DO) History of bowel resection Social History household members: spouse Smoking Status: Never smoker alcohol intake: current Smoking Status: Never smoker alcohol intake frequency: a few times a month Substance Use Type: does not use Exam Narrative Exam Narrative: GENERAL: Alert and oriented x three, moderate distress. HEENT: Head normocephalic, atraumatic, EOMI, pupils reactive, face symmetric, moist mucous membranes NECK: Supple, full range of motion CARDIOVASCULAR: Regular rate and rhythm without murmurs, rubs or gallops. RESPIRATORY: Breath sounds equal bilaterally, no wheezes rales or rhonchi. ABDOMEN: Soft, positive for right upper quadrant tenderness. Patient's abdomen is slightly distended but is soft. Incisions are clean dry and intact. There is a little bit of bruising on the lower abdominal vertical incision. No palpable hematoma. No dehiscence. No warmth, erythema or drainage.. Normoactive bowel sounds all 4 quadrants. No guarding or rebound, rigidity, no mass : No CVA tenderness EXTREMITIES: Normal range of motion, no clubbing or edema. Neurovascularly intact. 2+ pulses bilateral lower extremities. NEUROLOGICAL: Cranial nerves II through XII grossly intact. Moving all extremities SKIN: Warm, dry, no petechiae, no rashes or lesions. Initial Vital Signs Initial Vital Signs: Vital Signs Pulse Oximetry 94 03/30/24 10:49 Course Orders Ordered: ED Orders 03/30/24 10:54 XR chest 1V Stat EKG-12 Lead Stat 03/30/24 11:00 Blood Culture Stat Complete Blood Count AUTO DIFF Stat Comprehensive Metabolic Panel Stat Lactate (Lactic Acid) Stat Lipase Stat PTT Partial Thromboplastin Jesus Stat Procalcitonin Stat Prothrombin Time INR Stat 03/30/24 11:03 CT abdomen pelvis w con Stat Acetaminophen (Acetaminophen 325 Mg Tablet) 650 mg PO Q6H PRN PRN Reason: Fever/Mild Pain (1-3) Last Admin: 03/30/24 16:20 Dose: 650 mg Documented By: BT Amlodipine Besylate (Amlodipine 5 Mg Tablet) 10 mg PO DAILY CAROLINE Lorazepam (Lorazepam 0.5 Mg Tablet) 0.5 mg PO Q6HR PRN PRN Reason: Anxiety Last Admin: 03/30/24 18:46 Dose: 0.5 mg Documented By: BT Losartan Potassium (Losartan 50 Mg Tablet) 100 mg PO DAILY [facility] Metoprolol Succinate (Metoprolol Er 50 Mg Tablet) 50 mg PO DAILY [facility] Naloxone HCl (Naloxone 0.4 Mg/Ml Vial) 0.2 mg IV Q2MIN PRN PRN Reason: Opiate Reversal Ondansetron HCl (Ondansetron 4 Mg/2 Ml Inj) 4 mg IV Q8HR PRN PRN Reason: Nausea And Vomiting Oxycodone HCl (Oxycodone Ir 5 Mg Tablet) 5 mg PO Q3H PRN PRN Reason: Pain, Moderate (4-6) Last Admin: 03/30/24 16:21 Dose: 5 mg Documented By: BT Pantoprazole Sodium (Pantoprazole 40 Mg Vial) 40 mg IV BID CAROLINE Discontinued Medications Sodium Chloride (Normal Saline 0.9%) 1,000 mls @ 1,000 mls/hr IV BOLUS ONE Stop: 03/30/24 11:53 Last Infusion: 03/30/24 12:59 Dose: Infused Documented By: Admin: 03/30/24 11:10 Dose: 1,000 mls/hr Documented By: Piperacillin Sod/Tazobactam (Sod 4.5 gm/ Sodium Chloride) 100 mls @ 200 mls/hr IV NOW ONE Stop: 03/30/24 11:46 Last Infusion: 03/30/24 12:59 Dose: Infused Documented By: Admin: 03/30/24 12:08 Dose: 200 mls/hr Documented By: Morphine Sulfate (Morphine 4 Mg/Ml Inj) 4 mg IV NOW ONE Stop: 03/30/24 11:04 Last Admin: 03/30/24 11:10 Dose: 4 mg Documented By: Morphine Sulfate (Morphine 4 Mg/Ml Inj) 4 mg IV NOW ONE Stop: 03/30/24 12:21 Last Admin: 03/30/24 12:33 Dose: 4 mg Documented By: Ondansetron HCl (Ondansetron 4 Mg/2 Ml Inj) 4 mg IV NOW PRN PRN Reason: Nausea And Vomiting Last Admin: 03/30/24 11:10 Dose: 4 mg Documented By: Ondansetron HCl (Ondansetron 4 Mg Odt) 4 mg SL NOW PRN PRN Reason: Nausea And Vomiting Pantoprazole Sodium (Pantoprazole 40 Mg Vial) 80 mg IV NOW ONE Stop: 03/30/24 12:05 Last Admin: 03/30/24 12:08 Dose: 80 mg Documented By: Vital Signs Vital signs: Vital Signs - 8 hr 03/30/24 11:33 03/30/24 11:33 03/30/24 12:00 Pulse Rate 89 81 Respiratory Rate 15 18 Blood Pressure 210/88 H Pulse Oximetry 95 92 Oxygen Delivery Method 03/30/24 12:01 03/30/24 12:02 03/30/24 12:29 Pulse Rate 80 80 96 H Respiratory Rate 16 20 15 Blood Pressure 217/93 H Pulse Oximetry 93 95 95 Oxygen Delivery Method Room Air 03/30/24 12:30 03/30/24 12:32 03/30/24 13:00 Pulse Rate 93 H 88 78 Respiratory Rate 18 12 Blood Pressure 185/64 H Pulse Oximetry 97 98 97 Oxygen Delivery Method Room Air 03/30/24 13:00 Pulse Rate Respiratory Rate Blood Pressure 146/65 H Pulse Oximetry Oxygen Delivery Method MDM - Abdominal Pain Lab Data 03/30/24 11:00 03/30/24 11:00 Labs: Lab Results 03/30/24 03/30/24 Range/Units 11:00 13:05 WBC 7.5 (4.5-11.0) X10^3/uL RBC 2.53 L (4.0-5.2) X10^6/uL Hgb 8.6 L (12.0-16.0) g/dL Hct 26.0 L (36-46) % MCV 103.1 H (80-100) fL MCH 34.2 H (26-34) PG MCHC 33.2 (30-36) % RDW 17.7 H (11.6-14.8) % Plt Count 220 (150-400) X10^3/uL Neut % (Auto) 53.1 (50-75) % Lymph % (Auto) 35.2 (25-40) % [place] % (Auto) 9.3 (3-14) % Eos % (Auto) 2.0 (2-4) % Baso % (Auto) 0.4 (0-2) % Neut # (Auto) 4000 (2323-3082) /uL Lymph # (Auto) 2700 (7596-4557) /uL [place] # (Auto) 700 (0-900) /uL Eos # (Auto) 200 (0-450) /uL Baso # (Auto) 0 (0-100) /uL PT 13.6 H (9.4-12.5) SECONDS INR 1.2 (0.9-1.3) APTT 36 (25.1-36.5) SECONDS Sodium 134 L (137-145) mmol/L Potassium 3.9 (3.4-5.1) mmol/L Chloride 102 (98-107) mmol/L Carbon Dioxide 21 L (22-32) mmol/L BUN 14 (7-17) mg/dL Creatinine 0.76 (0.52-1.04) mg/dL Estimated GFR > 60 (>60) mL/min BUN/Creatinine Ratio 18.4 (6-22) Glucose 167 H (80-110) mg/dL Lactate 2.8 H 1.8 (0.7-2.1) mmol/L Calcium 9.3 (8.4-10.2) mg/dL Total Bilirubin 0.5 (0.2-1.3) mg/dL AST 28 (14-36) IU/L ALT 23 (<35) IU/L Alkaline Phosphatase 100 (38-126) U/L Total Protein 10.0 H (6.3-8.2) g/dL Albumin 3.7 (3.5-5.0) g/dL Globulin 6.3 H (1.7-4.1) g/dL Albumin/Globulin Ratio 0.6 L (1.0-2.8) Lipase 117 (23-300) U/L Procalcitonin 0.777 H (<0.5) ng/mL Point of care testing: Urine Dip Bedside Urine Glucose Negative Bedside Urine Bilirubin - Negative Bedside Urine Ketone - Negative Urine Specific [place] 1.015 Bedside Urine Occult Blood - Negative Bedside Urine pH 6.5 Bedside Urine Protein - Negative Bedside Urine Urobilinogen - Negative Bedside Urine Nitrite - Negative Bedside Urine Leukocytes - Negative Esterase ECG Data Attestation: I personally reviewed and interpreted this ECG as follows: Prior ECG tracings: available for review Interpretation: Sinus rhythm rate 87 UT 144 QRS of 90 QTC [address] No acute ST changes appreciated. Patient has prior from 03/22/2024 was nonspecific change. MDM Narrative Medical decision making narrative: 83-year-old female who presents tachycardic, hypertensive quite a bit of pain particularly in her right upper quadrant. She had a recent cholecystectomy and lysis of adhesions 4 days ago. She does not appear to be having any obstructive symptoms she has been stooling regularly although she describes it as liquidy but is also taking 3 stool softener she has not had any vomiting. She describes possible fever in the past 24 hours and increasing pain over time. Labs white count of 7.5 hemoglobin is 8.6 fairly consistent with patient's hospitalization no significant decreased she has a macrocytosis. Platelets are 220. INR is 1.2 sodium is 134 potassium 3.9 chloride of 102 CO2 of 21 BUN 14 creatinine 0.76. Lactate 2.8 with a glucose of 167 otherwise negative LFTs total protein 10, lipase is 117. Procalcitonin is positive at 0.777 Chest x-ray shows cardiomegaly, no gross infiltrates. CT abdomen shows cholecystectomy, no biliary or ductal dilation no hydro no complex renal cysts thickening of the wall of the 2nd portion duodenum is edematous with thickening of the pylorus duodenal bulb suggesting probable peptic ulcer disease with associated duodenitis. Patient is also noticed to have some compression fractures and severe osteoporosis. Patient's pain improved with pain medication she continues to be hypotensive or tachycardia has improved after fluids and pain medications as well as zofran. She did have some recurrence. She was able the bathroom to give a urine sample. Patient case was discussed with Dr. Mccarthy, general surgery: Will keep patient has observation under general surgery. Discussed get a dose of IV antibiotic as well as a dose of Protonix. Is quite uncomfortable and has been hypertensive initially but otherwise appropriate vitals after her tachycardia resolved. Discharge Plan Departure Patient Disposition: Admitted as Observation Clinical Impression: Duodenitis, Status post cholecystectomy Admit Date/Time: 03/30/24 13:07 Admit Provider: Stephon Mccarthy
--- NOTE | 2024-03-30 11:03 | DI.CT.S_ITS ---
PROCEDURE: CT ABDOMEN PELVIS W CON INDICATIONS: abd pain, RUQ>LUQ, s/p cholecystectomy 03/23 TECHNIQUE: After the administration of intravenous contrast, axial sections acquired from the lung bases to the pubic symphysis. Coronal and sagittal reformats were performed. For radiation dose reduction, the following was used: automated exposure control, adjustment of mA and/or kV according to patient size. COMPARISON: [facility], CT, CT ABDOMEN PELVIS W CON, 03/22/2024, 14:06. FINDINGS: Image quality: Diagnostic. Lower Chest: Cardiomegaly. Minimal right basilar atelectasis. ABDOMEN: Liver: No solid mass. Gallbladder: Interval cholecystectomy. Expected inflammatory change in the surrounding fat. Biliary ducts: No biliary dilation. Pancreas: No ductal dilation. Spleen: Size is within normal limits. Adrenal Glands: No adrenal nodules. Kidneys and Ureters: No hydronephrosis. No solid mass. No complex renal cystic lesion which requires follow up. Stomach and Bowel: There is thickening of the wall of the 2nd portion of the duodenum which has a somewhat edema ptosis appearance. There is edema and thickening of the region of the pylorus/duodenal bulb. Findings suggest probable peptic ulcer disease with associated duodenitis. Moderate sigmoid diverticulosis without evidence of diverticulitis. Colon and small bowel are normal in caliber. Peritoneum: No abnormal intraperitoneal fluid. No free air. Ventral Wall: No significant ventral hernia. Abdominal Nodes: No retroperitoneal or mesenteric adenopathy by size criteria. Vessels: Aorta and inferior vena cava are normal in size. PELVIS: Pelvic Organs: Unremarkable. Bladder: No bladder wall thickening, accounting for underdistention. Pelvic Nodes: No enlarged lymph nodes. Miscellaneous: No inguinal hernias are seen. Bones: No aggressive osseous abnormality. Again noted is a remote severe L1 compression and an age indeterminate mild inferior endplate L4 compression. Also present is a remote severe is T6 compression with bony retropulsion and canal stenosis. This level was not imaged on the previous study. IMPRESSION: 1. Interval cholecystectomy. 2. Development of inflammatory change in the pylorus/duodenal bulb/C-loop suggesting likely development of a peptic ulcer with associated duodenitis. The actual ulcer is not identified. 3. Severe osteoporosis. Findings include a severe chronic compression fracture of T6 with bony retropulsion in canal stenosis, a severe chronic compression of L1, and a age-indeterminate L4 compression. Dictated by: Grady Bocanegra M.D. on 03/30/2024 at 11:42 Approved by: Grady Bocanegra M.D. on 03/30/2024 at 11:49
[2024-03-30 11:08] LABS: Add Manual Diff / Slide Review NO; Basophils Absolute Auto 0 /uL (0-100); Basophils Percent Auto 0.4 % (0-2); Eosinophils Absolute Auto 200 /uL (0-450); Hemoglobin 8.6 g/dL (12.0-16.0); Lymphocytes Absolute Auto 2700 /uL (1100-4500); Lymphocytes Percent Auto 35.2 % (25-40); Mean Corpuscular HGB Conc 33.2 % (30-36); Mean Corpuscular Hemoglobin 34.2 PG (26-34); Mean Corpuscular Volume 103.1 fL (80-100); Monocytes Absolute Auto 700 /uL (0-900); Monocytes Percent Auto 9.3 % (3-14); Neutrophils Absolute Auto 4000 /uL (1500-7000); Neutrophils Percent Auto 53.1 % (50-75); Platelet Count 220 X10^3/uL (150-400); Red Blood Cell Count 2.53 X10^6/uL (4.0-5.2); Red Cell Distribution Width 17.7 % (11.6-14.8); White Blood Cell Count 7.5 X10^3/uL (4.5-11.0)
[2024-03-30] MEDS: SODIUM CHLORIDE 0.9% 1,000 ML 1000 ML IV (11:10)
[2024-03-30] MEDS: ONDANSETRON 4 MG/2 ML INJ IV (11:10)
[2024-03-30] MEDS: MORPHINE 4 MG/ML INJ IV ×2 (11:10→12:33)
[2024-03-30 11:15] LABS: INR 1.2 (0.9-1.3); Prothrombin Time 13.6 SECONDS (9.4-12.5)
[2024-03-30 11:18] LABS: PTT Partial Thromboplastin Tim 36 SECONDS (25.1-36.5)
[2024-03-30 11:20] LABS: Alanine Aminotransferase 23 IU/L (<35); Albumin 3.7 g/dL (3.5-5.0); Albumin Globulin Ratio 0.6 (1.0-2.8); Alkaline Phosphatase 100 U/L (38-126); Aspartate Aminotransferase 28 IU/L (14-36); BUN Creatinine Ratio 18.4 (6-22); Bilirubin Total 0.5 mg/dL (0.2-1.3); Blood Urea Nitrogen 14 mg/dL (7-17); Calcium 9.3 mg/dL (8.4-10.2); Carbon Dioxide 21 mmol/L (22-32); Chloride 102 mmol/L (98-107); Estimated Glomerular Filt Rate > 60 mL/min (>60); Globulin 6.3 g/dL (1.7-4.1); Glucose 167 mg/dL (80-110); HEMOLYSIS < 15 (0-50); Lipase 117 U/L (23-300); Potassium 3.9 mmol/L (3.4-5.1); Sodium 134 mmol/L (137-145)
[2024-03-30 11:21] LABS: Lactate (Lactic Acid) 2.8 mmol/L (0.7-2.1)
[2024-03-30 11:36] LABS: Procalcitonin 0.777 ng/mL (<0.5)
[2024-03-30] MEDS: PANTOPRAZOLE 40 MG VIAL 80 MG IV (12:08)
[2024-03-30] MEDS: PIPERACILLIN/TAZO 4.5 GM in SODIUM CHLORIDE 0.9% 100 ML IV (12:08)
[2024-03-30 12:38] LABS: Reflexed Lactate in 2 Hours Y
--- NOTE | 2024-03-30 13:12 | PM.HP.1 ---
History of Present Illness History of Present Illness Date Patient Seen: 03/30/24 Time Patient Seen: 20:51 Chief complaint: pain upper abd pain Narrative: Charlene Henson is a 83-year-old woman PMH small-bowel neuroendocrine tumor status post resection, who is admitted to the hospital with the abdominal pain 1 week status post laparoscopic cholecystectomy with lysis of adhesions performed for biliary colic on March 23, 2024. Postoperatively she appears to have done well and seemed to have been improving. Today her pain significantly worsened which is in the right upper quadrant and she feels as if she is unable to breathe. No nausea vomiting having bowel movements feels bloated. On arrival afebrile normotensive, WBCs 8, total bilirubin 0.5 LFTs within normal limits. CT abdomen pelvis demonstrates duodenitis no significant intra-abdominal fluid or free air. [facility] Medical History (Updated 03/30/24 @ 13:07 by Latisha Jung DO) Neuroendocrine tumor Surgical History (Updated 03/30/24 @ 13:07 by Latisha Jung DO) History of bowel resection Social History household members: spouse Smoking Status: Never smoker alcohol intake: current Meds Home Medications and Allergies Home Medications Medication Instructions Recorded Confirmed Type cholecalciferol (vitamin D3) 50 2,000 unit PO Q OTHER DAY ##0 03/03/11 03/30/24 History mcg (2,000 unit) capsule (Vitamin D3) ascorbic acid (vitamin C) 500 mg 500 mg PO DAILY ##0 05/20/13 03/30/24 History tablet vitamin B complex 1 cap PO DAILY ##0 05/20/13 03/30/24 History amlodipine 10 mg tablet 10 mg PO DAILY ##0 12/25/17 03/30/24 History atorvastatin 10 mg tablet (Lipitor) 10 mg PO DAILY ##0 12/25/17 03/30/24 History losartan 100 mg tablet 100 mg PO DAILY ##0 12/25/17 03/30/24 History metoprolol succinate 50 mg 50 mg PO DAILY ##0 12/25/17 03/30/24 History tablet,extended release 24 hr vitamin A 3,000 mcg (10,000 unit) 1 cap PO DAILY ##0 12/25/17 03/30/24 History capsule alendronate 35 mg tablet 35 mg PO QWEEK 08/15/18 03/30/24 History esomeprazole magnesium 40 mg 40 mg PO Q OTHER DAY 11/15/18 03/30/24 History capsule,delayed release (Nexium) ibuprofen 200 mg tablet 200 mg PO TID PRN pain 11/15/18 03/30/24 History lorazepam 0.5 mg tablet 0.5 mg PO BID PRN Anxiety 11/15/18 03/30/24 History escitalopram oxalate 10 mg tablet 10 mg PO DAILY 03/22/24 03/30/24 History bisacodyl 5 mg tablet 5 mg PO BEDTIME 7 days #7 tabs 03/26/24 03/30/24 Rx docusate sodium 100 mg tablet 100 mg PO BID PRN constipation 15 03/26/24 03/30/24 Rx days #30 tabs methocarbamol 500 mg tablet 500 mg PO QID PRN muscle spasm 7 03/26/24 03/30/24 Rx days #28 tabs polyethylene glycol 3350 17 gram 17 g PO DAILY 30 days #30 ea 03/26/24 03/30/24 Rx oral powder packet sennosides 8.6 mg tablet (senna) 8.6 mg PO BID PRN constipation 30 03/26/24 03/30/24 Rx days #30 tabs Allergies Allergy/AdvReac Type Severity Reaction Status Date / Time No Known Drug Allergies Allergy Verified 03/30/24 10:54 Exam Vital Signs (past 8 hours): - 03/30/24 10:49 03/30/24 10:50 03/30/24 10:50 Temperature Pulse Rate 106 H 105 H Respiratory Rate 22 Blood Pressure 216/100 H Pulse Oximetry 94 98 95 Oxygen Delivery Method Room Air 03/30/24 10:54 03/30/24 11:00 03/30/24 11:00 Temperature 98.2 F Pulse Rate 97 H Respiratory Rate Blood Pressure 204/91 H Pulse Oximetry 97 Oxygen Delivery Method 03/30/24 11:33 03/30/24 11:33 03/30/24 12:00 Temperature Pulse Rate 89 81 Respiratory Rate 15 18 Blood Pressure 210/88 H Pulse Oximetry 95 92 Oxygen Delivery Method 03/30/24 12:01 03/30/24 12:02 03/30/24 12:29 Temperature Pulse Rate 80 80 96 H Respiratory Rate 16 20 15 Blood Pressure 217/93 H Pulse Oximetry 93 95 95 Oxygen Delivery Method Room Air 03/30/24 12:30 03/30/24 12:32 03/30/24 13:00 Temperature Pulse Rate 93 H 88 78 Respiratory Rate 18 12 Blood Pressure 185/64 H Pulse Oximetry 97 98 97 Oxygen Delivery Method Room Air 03/30/24 13:00 Temperature Pulse Rate Respiratory Rate Blood Pressure 146/65 H Pulse Oximetry Oxygen Delivery Method Oxygen Delivery Method Room Air Narrative Exam Narrative: GENERAL: A well nourished, well developed elderly woman, clearly uncomfortable. HEENT: Normocephalic, atraumatic. No scleral icterus CHEST: Rising symmetrically. No audible wheezes CARDIOVASCULAR: Warm and well perfused. Regular rate ABDOMEN: Tender right upper quadrant abdominal distention no peritonitis EXTREMITIES: Normal tone and without edema. NEUROLOGIC: Moving all extremities spontaneously. No gross motor deficits. Objective Labs 03/30/24 11:00 03/30/24 11:00 Labs: Laboratory Results - last 24 hr 03/30/24 11:00 WBC 7.5 RBC 2.53 L Hgb 8.6 L Hct 26.0 L MCV 103.1 H MCH 34.2 H MCHC 33.2 RDW 17.7 H Plt Count 220 Neut % (Auto) 53.1 Lymph % (Auto) 35.2 [place] % (Auto) 9.3 Eos % (Auto) 2.0 Baso % (Auto) 0.4 Neut # (Auto) 4000 Lymph # (Auto) 2700 [place] # (Auto) 700 Eos # (Auto) 200 Baso # (Auto) 0 PT 13.6 H INR 1.2 APTT 36 Sodium 134 L Potassium 3.9 Chloride 102 Carbon Dioxide 21 L BUN 14 Creatinine 0.76 Estimated GFR > 60 BUN/Creatinine Ratio 18.4 Glucose 167 H Lactate 2.8 H Calcium 9.3 Total Bilirubin 0.5 AST 28 ALT 23 Alkaline Phosphatase 100 Total Protein 10.0 H Albumin 3.7 Globulin 6.3 H Albumin/Globulin Ratio 0.6 L Lipase 117 Procalcitonin 0.777 H Assessment & Plan Assessment and plan (1) Duodenitis: Status: Acute Assessment & Plan narrative: [age] year-old woman PMH neuroendocrine tumor 1 week status post cholecystectomy with lysis of adhesions for biliary colic who is readmitted with acute abdominal pain. No peritonitis on exam. Laboratory studies and imaging reviewed notable for no leukocytosis or LFT abnormality. CT abdomen pelvis demonstrates duodenitis no free fluid or free air. No signs of intestinal injury although she does have significantly more pain than I would expect for duodenitis. -CBC and lactic acid now -NPO IV fluids -PPI -possible EGD tomorrow
[2024-03-30 13:32] LABS: Lactate 2HR (Lactic Acid Rflx) 1.8 mmol/L (0.7-2.1)
--- NOTE | 2024-03-30 14:02 | CM.DANOTE ---
DCP Assessment: Pt is a 83yo female, resident of [place], is presents to the ED s/p cholecystectomy and is admitted for observation due to duodenitis. Pt lives in a house with her spouse, Larry. Pt's Primary Care Provider is Dr. Jyoti Prasad and insurance is [employer]. Reviewed chart and discussed pt with ED staff for pt's medical status and initial discharge needs. Per chart review, pt had opened services with [facility] for RN/PT/OT/THERAPIST ASST/[employer] WORKER services. ED [employer] WORKER met w/patient at bedside; introduced self and role. Present in the room is patient's , Larry, and close friend. Pt was found in bed, alert and oriented, cooperative with assessment. Pt confirmed living situation and explained most recent admission and discharge on 03/26/24. Pt expressed that she had regrets she got discharged on a Thursday as she felt she needed home health services sooner; DCP utilized reflective listening to assist in validating pt's concerns. Pt confirmed that [facility] was not able to open services until 04/05/24 and pt felt her health was declining and her pain was increasing. Pt reports she spoke with the clinical exhibitions and collections manager at [facility] who recommended that she present to the ED due to her pain levels. Pt reports preference for with [facility] or any other agency based closer to [facility] so she can have services sooner at discharge. DCP discussed accepted insurance at agencies; pt verbalized understanding. Plan: Pt to be admitted for duodenitis; to receive IV antibiotics and protonix. CM team will plan to follow clinical course closely for assessment of need and coordination of discharge plan. [facility] Discharge Planning/Care Management CM Discharge Assessment Start: 03/30/24 13:56 Freq: Status: Active Protocol: Document 03/30/24 13:56 MW (Rec: 03/30/24 14:02 MW [id number]) Discharge Planning Assessment Assigned Cement Patcher KAUR Lpoez DPOA/Assigned Designee Name Larry Henson, Spouse Contact Information [phone] Advance Directives? Yes Advance Directives on File No History Provided By Patient,Friend,Significant Other,Medical Record Expected Length of Stay 2 Has Patient been admitted in last 30 Yes days? Comment Patient was admitted 03/22- for cholecystectomy due to right upper quadrant pain. Prior Living Arrangements House Household Members spouse Type of transporation used prior to Drives own vehicle admit Independent with ADL's Yes Is patient alert and oriented? Yes Discharge Plan Home Transportation Arrangement Spouse Referrals Initiated Home Health SNF/HH Preference Patient had opened services with [facility] at most recent admission. Pt was hopeful to open services soon after discharge; hopes that prior to this discharge, pt will have open date in place. Please Provide Date Initial DC 03/30/24 Assessment Was Performed Next Review Type Continued Stay Review
[2024-03-30] MEDS: ACETAMINOPHEN 325 MG TABLET 650 MG PO (16:20)
[2024-03-30] MEDS: OXYCODONE IR 5 MG TABLET PO (16:21)
[2024-03-30] MEDS: LORazepam 0.5 MG TABLET PO (18:46)
[2024-03-30] MEDS: HYDROMORPHONE 0.5 MG INJ IV ×2 (20:13→23:24)
[2024-03-30] MEDS: PIPERACILLIN/TAZO 3.375 GM in SODIUM CHLORIDE 0.9% 100 ML IV (20:57)
[2024-03-30] MEDS: SODIUM CHLORIDE 0.9% 1,000 ML 100 ML IV (20:57)
[2024-03-30] MEDS: PANTOPRAZOLE 40 MG VIAL IV (20:58)
[2024-03-30 22:31] LABS: Add Manual Diff / Slide Review NO; Basophils Absolute Auto 0 /uL (0-100); Basophils Percent Auto 0.3 % (0-2); Eosinophils Absolute Auto 100 /uL (0-450); Eosinophils Percent Auto 2.5 % (2-4); Hematocrit 22.9 % (36-46); Hemoglobin 7.7 g/dL (12.0-16.0); Lymphocytes Absolute Auto 1600 /uL (1100-4500); Lymphocytes Percent Auto 31.1 % (25-40); Mean Corpuscular HGB Conc 33.7 % (30-36); Mean Corpuscular Hemoglobin 35.1 PG (26-34); Mean Corpuscular Volume 104.1 fL (80-100); Monocytes Absolute Auto 500 /uL (0-900); Monocytes Percent Auto 9.2 % (3-14); Neutrophils Absolute Auto 2900 /uL (1500-7000); Neutrophils Percent Auto 56.9 % (50-75); Platelet Count 190 X10^3/uL (150-400); Red Cell Distribution Width 17.7 % (11.6-14.8); White Blood Cell Count 5.1 X10^3/uL (4.5-11.0)
[2024-03-30 23:09] LABS: Lactate (Lactic Acid) 1.4 mmol/L (0.7-2.1)
[2024-03-31] VITALS (14 sets, daily range): BP systolic 136–160; BP diastolic 55–70; PULSE 72–89; RESP 16–20; TEMP 35.7–36.8; O2SAT 91–96
[2024-03-31] MEDS: PIPERACILLIN/TAZO 3.375 GM in SODIUM CHLORIDE 0.9% 100 ML IV ×3 (03:39→20:36)
[2024-03-31] MEDS: HYDROMORPHONE 0.5 MG INJ IV ×5 (03:48→20:10)
[2024-03-31 06:12] LABS: Hematocrit 21.1 % (36-46); Hemoglobin 7.1 g/dL (12.0-16.0)
[2024-03-31] MEDS: LORazepam 0.5 MG TABLET PO ×3 (06:39→22:50)
[2024-03-31] MEDS: PANTOPRAZOLE 40 MG VIAL IV ×2 (08:26→20:15)
[2024-03-31] MEDS: LOSARTAN 50 MG TABLET 100 MG PO (08:27)
[2024-03-31] MEDS: AMLODIPINE 5 MG TABLET 10 MG PO (08:27)
[2024-03-31] MEDS: METOPROLOL ER 50 MG TABLET PO (08:27)
--- NOTE | 2024-03-31 12:25 | CM.DPC ---
DCP Continued Reviewed EMR and team rounds for pt?s medical status. Per RN, pt scheduled to have EGD completed today. Although H&H is low, per RN, no blood transfusion ordered at this time. Plan: Plan of care evolving, pending EGD results. CM Team will continue to follow for coordination of discharge plans. STIVEN Archer
--- NOTE | 2024-03-31 13:25 | PC.NURSE ---
Addendum entered by Merari Juarez R.N. 03/31/24 17:31: Pt w/ episodes of abd. discomfort T/O day. Med several times, Last was Oxycodone 5mg at dinner time, IVF D/C'd per MD Pt encouraged to ambulate in hallway. Call light w/in reach, pt calls appropriately for needs. Continue w/plan of care. Original Note: Pt A/O Lap sites to abdomen w/ shadow drainage noted. Pt med x 1 w/ Dilaudid w/ minimal relief. Early afternoon Pt tearful, abdomen slightly more taught Pt presents anxious. Pt assisted w/ shower. Med w/ Ativan Will assess status. EGD planned for this afternoon. Call light w/in reach, pt calls appropriately for needs.
--- NOTE | 2024-03-31 15:53 | P.PN_ITS ---
Subjective Subjective Date Patient Seen: 03/31/24 Time Patient Seen: 15:53 Interval history: Still having occasional spasms of abdominal pain. CT scan from yesterday looks normal for 1 week post cholecystectomy. Exam Vital Signs (past 8 hours): - 03/31/24 08:27 03/31/24 08:27 03/31/24 08:30 Temperature 96.3 F L Pulse Rate 84 Respiratory Rate 20 Blood Pressure 160/70 H 160/70 H 160/70 H Pulse Oximetry 93 Oxygen Delivery Method Oxygen Flow Rate 0 03/31/24 09:00 03/31/24 09:38 03/31/24 12:11 Temperature 96.7 F L Pulse Rate 78 Respiratory Rate 16 Blood Pressure 148/69 H 148/62 H Pulse Oximetry 93 94 Oxygen Delivery Method Room Air Oxygen Flow Rate 0 03/31/24 13:00 Temperature Pulse Rate Respiratory Rate Blood Pressure Pulse Oximetry 96 Oxygen Delivery Method Room Air Oxygen Flow Rate Oxygen Delivery Method Room Air Oxygen Flow Rate 0 Narrative Exam Narrative: Abdomen is soft, nontender Incisions are well healed Objective Labs 03/31/24 05:50 03/30/24 11:00 Labs: Laboratory Results - last 24 hr 03/30/24 03/31/24 22:20 05:50 WBC 5.1 RBC 2.20 L Hgb 7.7 L 7.1 L Hct 22.9 L 21.1 L MCV 104.1 H MCH 35.1 H MCHC 33.7 RDW 17.7 H Plt Count 190 Neut % (Auto) 56.9 Lymph % (Auto) 31.1 [place] % (Auto) 9.2 Eos % (Auto) 2.5 Baso % (Auto) 0.3 Neut # (Auto) 2900 Lymph # (Auto) 1600 [place] # (Auto) 500 Eos # (Auto) 100 Baso # (Auto) 0 Lactate 1.4 PFSH Medical History (Updated 03/30/24 @ 13:07 by Latisha Jung DO) Neuroendocrine tumor Surgical History (Updated 03/30/24 @ 13:07 by Latisha Jung DO) History of bowel resection Social History household members: spouse Smoking Status: Never smoker alcohol intake: current Assessment & Plan Assessment and plan (1) Status post cholecystectomy: Status: Acute Plan Okay to advance diet We can continue the workup for abdominal pain as an outpatient Quality VTE Deep Vein Thrombosis/Pulmonary Embolism Present on Admission: No
[2024-03-31] MEDS: OXYCODONE IR 5 MG TABLET PO ×2 (17:03→21:58)
[2024-03-31] MEDS: ESCITALOPRAM 10 MG TABLET PO (20:37)
[2024-04-01] MEDS: OXYCODONE IR 5 MG TABLET PO ×3 (00:50→08:45)
[2024-04-01 01:00] VITALS: O2SAT 95
[2024-04-01] MEDS: PIPERACILLIN/TAZO 3.375 GM in SODIUM CHLORIDE 0.9% 100 ML IV (03:31)
[2024-04-01 04:15] VITALS: BP 150/58; PULSE 79; RESP 18; TEMP 36; O2SAT 93
[2024-04-01 05:00] VITALS: O2SAT 93
[2024-04-01] MEDS: LORazepam 0.5 MG TABLET PO (07:46)
[2024-04-01] MEDS: PANTOPRAZOLE 40 MG VIAL IV (08:37)
[2024-04-01] MEDS: METOPROLOL ER 50 MG TABLET PO (08:37)
[2024-04-01] MEDS: AMLODIPINE 5 MG TABLET 10 MG PO (08:37)
[2024-04-01] MEDS: LOSARTAN 50 MG TABLET 100 MG PO (08:37)
[2024-04-01 08:52] VITALS: BP 148/54; PULSE 68; RESP 16; TEMP 36.4; O2SAT 94
[2024-04-01 08:55] VITALS: O2SAT 95
[2024-04-01 10:05] VITALS: PULSE 65
--- NOTE | 2024-04-01 11:15 | DIET.CONS ---
Dietary Consultation Note Admission Date: 03/30/2024 13:07 Assessment: 83 y F admitted d/t duodenitis. Nutrition screened for low MNA. Met with pt at bedside who reports intake of cereals, soups, softer foods and slowing working towards normal diet since d/c on 03/26. Does not feel she has lost any weight since my last assessment on 03/24. Had been intentionally trying to lose weight last few months. No significant findings in NFPE. Discussed adequate intake upon d/c as tolerated with protein sources at each meal. Reviewed protein sources. Ht: 152.4 cm Wt: 62.142 kg BMI: 26.7 UBW: 67 kg (-6.7% within 1 month) Last BM: () MNA: 9 Mina Score: 20 Diet: 03/31/24 Dinner General (Regular) Diet Diet Modifications: Food Texture: Level 7 - Regular Liquid Consistency: Level 0 - Thin Nutrition Percent Meal Consumed 100% 04/01/24 09:35 Percent Meal Consumed 100% 03/30/24 18:00 Labs: RBC 2.20 X10^6/uL (4.0-5.2) L 03/30/24 22:20 Hgb 7.1 g/dL (12.0-16.0) L 03/31/24 05:50 Hct 21.1 % (36-46) L 03/31/24 05:50 Creatinine 0.76 mg/dL (0.52-1.04) 03/30/24 11:00 Lactate 1.4 mmol/L (0.7-2.1) 03/30/24 22:20 Electronically Signed by: Elvira Hale 04/01/24 11:15 Clinical Dietitian [address] [id number]
--- NOTE | 2024-04-01 11:26 | PC.NURSE ---
Addendum entered by Rock Kilpatrick R.N. 04/01/24 12:12: Left unit via WC at approx 1205. Original Note: Day shift:' paperwork signed and all questions answered. Pt has all personal belonings. Pt wants to talk to KAUR Richardson prior to going home.No new MD scripts today.
--- NOTE | 2024-04-01 12:07 | CM.DPNOTE ---
Addendum entered by KAUR Adams 04/02/24 10:37: Post Discharge Note: Placed call to Charlene's cell, to update that [facility] is not available for SOC until 04/13. Patient declines HH services. Updated [facility] via email. ELADIO Original Note: DC Note Patient has been discharged home today. Met w/patient, spouse and friend at bedside to review discharge plan. Patient states concern about [facility] and their ability to serve her once discharged. Patient considering discharge without home health services. Patient reports she may pay for a caregiver instead. Discussed the difference between HH RN and a caregiver hired through caregiver agency. This [employer]RE CONTROL OFFICER strongly encouraged patient to consider HH RN as she has been struggling with pain and anxiety throughout last and current admissions. Patient agrees, says she would like a HH RN and will also plan to call caregiver agencies to assist she and spouse. According to Vikki at [facility], they are out for nursing until 04/13. CHARLA Thomson, kindly agreed to ask [facility] if they would take patient's [employer]. [facility] can only accept [employer] insurance managed through [employer] which patient's [employer] coverage is not. Patient has since left the building; will plan to call her at home number to ask if she still would like HH RN even though start of care is not until 04/13. ELADIO
== END 2024-04-01 12:12 | disposition home or self-care (01) ==
LOC: ED 13:07 → AC 13:08
PROVIDERS: Admitting Provider Surgery; Emergency Provider Emergency Medicine; PCP Internal Medicine; Referring Provider Emergency Medicine; Visit Provider Surgery
DX: K29.80 Duodenitis without bleeding (principal); Z90.49 Acquired absence of other specified parts of digestive tract
CPT/HCPCS: 36415; 71045; 74177; 80053; 81003; 83605; 83690; 84145; 85014; 85018; 85025; 85610; 85730; 87040; 93005; 96365; 96366; 96375; 96376; 99284; 99285; G0378; C9113; J1170; J2270; J2405; J2543; Q9967

== ENCOUNTER 2024-04-03 13:58 | Emergency (ER) | payer OTHER, SELFPAY ==
[2024-03-30 13:52] VITALS: BMI 26.7
[2024-04-03] VITALS (18 sets, daily range): BP systolic 151–186; BP diastolic 66–81; PULSE 66–90; RESP 12–32; TEMP 37; O2SAT 89–99; BMI 29.2
[2024-04-03 14:50] LABS: Hematocrit 24.2 % (36-46); Hemoglobin 8.3 g/dL (12.0-16.0); Mean Corpuscular HGB Conc 34.1 % (30-36); Mean Corpuscular Hemoglobin 35.2 PG (26-34); Mean Corpuscular Volume 103.3 fL (80-100); Platelet Count 217 X10^3/uL (150-400); Red Blood Cell Count 2.35 X10^6/uL (4.0-5.2); Red Cell Distribution Width 17.8 % (11.6-14.8); White Blood Cell Count 5.6 X10^3/uL (4.5-11.0)
[2024-04-03 14:51] LABS: Add Manual Diff / Slide Review YES
[2024-04-03 14:56] LABS: Alanine Aminotransferase 28 IU/L (<35); Albumin 3.7 g/dL (3.5-5.0); Albumin Globulin Ratio 0.5 (1.0-2.8); Alkaline Phosphatase 131 U/L (38-126); Aspartate Aminotransferase 28 IU/L (14-36); BUN Creatinine Ratio 10.4 (6-22); Bilirubin Total 0.7 mg/dL (0.2-1.3); Blood Urea Nitrogen 7 mg/dL (7-17); Calcium 9.6 mg/dL (8.4-10.2); Carbon Dioxide 24 mmol/L (22-32); Chloride 104 mmol/L (98-107); Estimated Glomerular Filt Rate > 60 mL/min (>60); Globulin 7.3 g/dL (1.7-4.1); Glucose 109 mg/dL (80-110); HEMOLYSIS < 15 (0-50); Lipase 137 U/L (23-300); Potassium 3.3 mmol/L (3.4-5.1); Sodium 139 mmol/L (137-145)
[2024-04-03 15:01] LABS: Neutrophils Absolute Manual 1904 /uL (3000-5900); Total Cells Counted 100
[2024-04-03 15:02] LABS: Macrocytosis 2+
[2024-04-03] MEDS: HYDROMORPHONE 0.5 MG INJ IV ×2 (16:16→17:58)
--- NOTE | 2024-04-03 17:36 | ED_ITS ---
HPI - Abdominal Pain General Chief Complaint: Abdominal Pain Stated Complaint: Severe Abd pain Time Seen by Provider: 04/03/24 15:47 History of Present Illness HPI narrative: 83-year-old female with ongoing abdominal pain problems. She had predominant left upper quadrant abdominal discomfort with serial visits [facility] on 03/14/2024, 03/15/2024, 03/16/2024, and was told that she had stool related constipation problems and was prescribed laxative therapy. She was subsequently seen here and diagnosed with cholecystitis, status post laparoscopic cholecystectomy on 03/21/2024, which she believes went well, was discharged home. She was admitted for 4 days with abdominal pain from 03/28/2024 through 04/01/2024, no specific diagnosis recalled, upper endoscopy was discussed but apparently not performed. CT abdomen imaging showed no acute changes. No black or red stools. She is having bowel movements that did not seem to increase or change the pain. Related Data Home Medications Medication Instructions Recorded Confirmed cholecalciferol (vitamin D3) 50 1,000 unit PO Q OTHER DAY ##0 03/03/11 03/31/24 mcg (2,000 unit) capsule (Vitamin D3) ascorbic acid (vitamin C) 500 mg 1,000 mg PO DAILY ##0 05/20/13 03/31/24 tablet vitamin B complex 1 cap PO DAILY ##0 05/20/13 03/30/24 losartan 100 mg tablet 100 mg PO DAILY ##0 12/25/17 03/30/24 metoprolol succinate 50 mg 50 mg PO DAILY ##0 12/25/17 03/30/24 tablet,extended release 24 hr vitamin A 3,000 mcg (10,000 unit) 1 cap PO DAILY ##0 12/25/17 03/30/24 capsule alendronate 35 mg tablet 35 mg PO QWEEK 08/15/18 03/30/24 esomeprazole magnesium 40 mg 20 mg PO Q OTHER DAY 11/15/18 03/31/24 capsule,delayed release (Nexium) lorazepam 0.5 mg tablet 0.5 mg PO BID PRN Anxiety 11/15/18 03/30/24 escitalopram oxalate 10 mg tablet 10 mg PO BEDTIME 03/22/24 03/31/24 amlodipine 5 mg tablet 5 mg PO DAILY 03/31/24 03/31/24 atorvastatin 20 mg tablet 20 mg PO DAILY 03/31/24 03/31/24 Allergies Allergy/AdvReac Type Severity Reaction Status Date / Time No Known Drug Allergies Allergy Verified 03/30/24 10:54 Patient History Medical History (Updated 04/03/24 @ 17:37 by Larry Johnston MD) Neuroendocrine tumor Surgical History (Updated 03/30/24 @ 13:07 by Latisha Jung DO) History of bowel resection Social History household members: spouse Smoking Status: Never smoker alcohol intake: current Smoking Status: Never smoker alcohol intake frequency: a few times a month Substance Use Type: does not use Exam Narrative Exam Narrative: GENERAL:Well-developed patient, in mild distress. HEAD: Atraumatic. Normocephalic. EYES: Pupils equal round and reactive. Extraocular motions intact. No scleral icterus. No injection or drainage. ENT: Nose without bleeding, purulent drainage. Throat without erythema, tonsillar hypertrophy or exudate. Airway patent. NECK: Trachea midline. Non tender CARDIOVASCULAR: Regular rate and rhythm without murmurs, gallops, or rubs. RESPIRATORY: Clear to auscultation. Breath sounds equal bilaterally. No wheezes, rales, or rhonchi. GASTROINTESTINAL: Abdomen soft, mild tendeness epigastrium, nondistended. EXTREMITIES: No edema or joint tenderness. BACK: Nontender without deformity or crepitance. No flank tenderness. NEURO: AOx3. SKIN: No rash or erythema of visible areas Initial Vital Signs Initial Vital Signs: Vital Signs Temperature 98.6 F 04/03/24 14:14 Pulse Rate 87 04/03/24 14:14 Respiratory Rate 18 04/03/24 14:14 Blood Pressure 167/78 H 04/03/24 14:14 Pulse Oximetry 99 04/03/24 14:14 Oxygen Delivery Method Room Air 04/03/24 14:14 Course Orders Ordered: ED Orders 04/03/24 14:21 EKG-12 Lead Stat 04/03/24 14:35 Complete Blood Count AUTO DIFF Stat Comprehensive Metabolic Panel Stat Lipase Stat 04/03/24 18:56 CT abdomen pelvis w con Stat Discontinued Medications Famotidine (Famotidine 20 Mg/2 Ml Vial) 20 mg IV NOW CAROLINE Last Admin: 04/03/24 19:54 Dose: 20 mg Documented By: YAHIR Hydromorphone HCl (Hydromorphone 0.5 Mg Inj) 0.5 mg IV NOW ONE Stop: 04/03/24 15:48 Last Admin: 04/03/24 16:16 Dose: 0.5 mg Documented By: YAHIR Hydromorphone HCl (Hydromorphone 0.5 Mg Inj) 0.5 mg IV NOW ONE Stop: 04/03/24 17:40 Last Admin: 04/03/24 17:58 Dose: 0.5 mg Documented By: JESSICA POTASSIUM CHLORIDE IN WATER (Potassium Cl 10 Meq/100 Ml Adele) 10 meq in 100 mls @ 100 mls/hr IV Q1H CAROLINE Stop: 04/03/24 20:29 Last Admin: 04/03/24 20:02 Dose: Not Given Documented By: Infusion: 04/03/24 20:01 Dose: Infused Documented By: Admin: 04/03/24 19:08 Dose: 100 mls/hr Documented By: YAHIR Sodium Chloride (Normal Saline 0.9%) 500 mls @ 1,000 mls/hr IV BOLUS ONE Stop: 04/03/24 18:58 Last Infusion: 04/03/24 20:00 Dose: Infused Documented By: Admin: 04/03/24 19:21 Dose: 1,000 mls/hr Documented By: YAHIR Ondansetron HCl (Ondansetron 4 Mg Odt) 4 mg PO NOW PRN PRN Reason: Nausea And Vomiting Ondansetron HCl (Ondansetron 4 Mg/2 Ml Inj) 4 mg IV NOW PRN PRN Reason: Nausea And Vomiting Ondansetron HCl (Ondansetron 4 Mg/2 Ml Inj) 4 mg IV NOW ONE Stop: 04/03/24 15:49 Last Admin: 04/03/24 17:35 Dose: Not Given Documented By: YAHIR Potassium Chloride (Potassium Chloride 20 Meq/15 Ml Udc) 20 meq PO NOW ONE Stop: 04/03/24 19:40 Last Admin: 04/03/24 19:53 Dose: 20 meq Documented By: YAHIR Tramadol HCl (Tramadol 50 Mg Prepack) 1 bottle MISC DIRECTED ONE Stop: 04/03/24 19:53 Last Admin: 04/03/24 19:59 Dose: 1 bottle Documented By: TARI Vital Signs Vital signs: Vital Signs - 8 hr 04/03/24 15:30 04/03/24 15:30 04/03/24 16:00 Pulse Rate 76 78 Respiratory Rate 26 H 24 Blood Pressure 171/76 H Pulse Oximetry 95 96 Oxygen Delivery Method Oxygen Flow Rate 04/03/24 16:00 04/03/24 16:22 04/03/24 16:22 Pulse Rate 75 Respiratory Rate 15 Blood Pressure 179/74 H 155/71 H Pulse Oximetry 98 Oxygen Delivery Method Oxygen Flow Rate 04/03/24 16:30 04/03/24 16:30 04/03/24 17:00 Pulse Rate 78 70 Respiratory Rate 20 19 Blood Pressure 151/71 H Pulse Oximetry 92 94 Oxygen Delivery Method Oxygen Flow Rate 04/03/24 17:00 04/03/24 17:30 04/03/24 17:30 Pulse Rate 72 Respiratory Rate 24 Blood Pressure 153/70 H 169/75 H Pulse Oximetry 93 Oxygen Delivery Method Oxygen Flow Rate 04/03/24 18:00 04/03/24 18:00 04/03/24 18:30 Pulse Rate 81 Respiratory Rate 24 Blood Pressure 177/81 H 152/66 H Pulse Oximetry 95 Oxygen Delivery Method Oxygen Flow Rate 04/03/24 18:30 04/03/24 18:58 04/03/24 18:58 Pulse Rate 68 71 Respiratory Rate 32 H 12 Blood Pressure 152/68 H Pulse Oximetry 89 L 92 Oxygen Delivery Method Room Air Nasal Cannula Oxygen Flow Rate 2 04/03/24 19:00 04/03/24 19:00 04/03/24 19:30 Pulse Rate 70 66 Respiratory Rate 15 24 Blood Pressure 167/72 H Pulse Oximetry 92 97 Oxygen Delivery Method Nasal Cannula Oxygen Flow Rate 2 04/03/24 19:30 04/03/24 20:00 04/03/24 20:00 Pulse Rate 67 Respiratory Rate 21 Blood Pressure 172/74 H 168/72 H Pulse Oximetry 94 Oxygen Delivery Method Oxygen Flow Rate 04/03/24 20:56 Pulse Rate 72 Respiratory Rate Blood Pressure 164/72 H Pulse Oximetry 96 Oxygen Delivery Method Room Air Oxygen Flow Rate MDM - Abdominal Pain Lab Data 04/03/24 14:35 04/03/24 14:35 Labs: Lab Results 04/03/24 Range/Units 14:35 WBC 5.6 (4.5-11.0) X10^3/uL RBC 2.35 L (4.0-5.2) X10^6/uL Hgb 8.3 L (12.0-16.0) g/dL Hct 24.2 L (36-46) % MCV 103.3 H (80-100) fL MCH 35.2 H (26-34) PG MCHC 34.1 (30-36) % RDW 17.8 H (11.6-14.8) % Plt Count 217 (150-400) X10^3/uL Neut % (Auto) Not Reportable Lymph % (Auto) Not Reportable [place] % (Auto) Not Reportable Eos % (Auto) Not Reportable Baso % (Auto) Not Reportable Lymph # (Auto) Not Reportable [place] # (Auto) Not Reportable Baso # (Auto) Not Reportable Total Counted 100 Seg Neutrophils % 34.0 L (38-70) % Lymphocytes % (Manual) 56.0 H (25-45) % Atypical Lymphs % 1.0 H ( - 0) % Monocytes % (Manual) 7.0 (2-11) % Eosinophils % (Manual) 2.0 (2-4) % Neutrophils # (Manual) 1904 L (6747-2903) /uL RBC Morphology Not Reportable Macrocytosis 2+ H Sodium 139 (137-145) mmol/L Potassium 3.3 L (3.4-5.1) mmol/L Chloride 104 (98-107) mmol/L Carbon Dioxide 24 (22-32) mmol/L BUN 7 (7-17) mg/dL Creatinine 0.67 (0.52-1.04) mg/dL Estimated GFR > 60 (>60) mL/min BUN/Creatinine Ratio 10.4 (6-22) Glucose 109 (80-110) mg/dL Calcium 9.6 (8.4-10.2) mg/dL Total Bilirubin 0.7 (0.2-1.3) mg/dL AST 28 (14-36) IU/L ALT 28 (<35) IU/L Alkaline Phosphatase 131 H (38-126) U/L Total Protein 11.0 H (6.3-8.2) g/dL Albumin 3.7 (3.5-5.0) g/dL Globulin 7.3 H (1.7-4.1) g/dL Albumin/Globulin Ratio 0.5 L (1.0-2.8) Lipase 137 (23-300) U/L ECG Data Attestation: I personally reviewed and interpreted this ECG as follows: Interpretation: NSR rate 78, no obvious ST segemnt elevation/depression, normal [place] QRS QTc intervals MDM Narrative Medical decision making narrative: 83-year-old with ongoing abdominal issues, previously treated earlier this month for possible constipation at would be, status post laparoscopic cholecystectomy on 03/21/2024 here, with abdominal pain admission 03/28/2024 through 04/01/2024 here without specific diagnosis recalled by the patient, no upper endoscopy was performed though it was discussed. Patient has been on Nexium 20 mg once daily. No black or red stools, having a bowel movement without any improvement in her symptoms. Afebrile, sirs screen negative, labs pending Potassium slight decreased, IV potassium while NPO. CT abdomen and pelvis imaging requested. CT abdomen and pelvis imaging no showed no acute process. We will contact surgery regarding possible EGD, inpatient versus outpatient, or any further recommendations Case discussed with Dr. Quintanilla of surgery, believes that patient can be treated as an outpatient, endoscopy can be done as an outpatient, in the interim would increase dose of Nexium to 20 mg twice daily from once daily. Critical Care Time Critical Care Time Critical Care Time: Yes Total Critical Care Time: 35 Attestation: The high probability of a clinically significant, sudden or life threatening deterioration of the [gastrointestinal] system(s) required my full and direct attention, intervention and personal management. The aggregate critical care time was [35] minutes. This time is in addition to time spent performing reported procedures but includes the following: [x] Data Review and interpretation [x] Patient assessment and monitoring of vital signs [x] Documentation [x] Medication orders and management Discharge Plan Departure Patient Disposition: Home Clinical Impression: Abdominal pain, Hypokalemia Activity Restrictions/Additional Instructions: Upper abdominal discomfort, history of prior 03/21/2024 cholecystectomy, preceding visits [place] for constipation. CT abdomen and pelvis imaging tonight showed no acute process. If you happen to have an ulcer or inflammation of your stomach it can take 6-8 weeks to fully heal. Case discussed with surgery Dr. Quintanilla on-call, who felt that you did not meet criteria for inpatient endoscopy at this point. She suggested outpatient endoscopy with your surgeon Dr. Galeas. She also suggested increasing the dose of your Nexium antacid, instead of every other day, consider taking it daily. If you are taking the Nexium daily consider use twice daily. Your potassium level in the blood was slightly low, repleted, consider recheck in follow up with repeat draw of blood. Tramadol pain medication home pack also prescribed to use the next couple of days if needed. Prescriptions: No Action cholecalciferol (vitamin D3) [Vitamin D3] 2,000 unit Capsule 1,000 unit PO Q OTHER DAY Qty: 0 ascorbic acid (vitamin C) 500 MG tablet 1,000 mg PO DAILY Qty: 0 vitamin B complex Capsule 1 cap PO DAILY Qty: 0 losartan 100 MG tablet 100 mg PO DAILY Qty: 0 metoprolol succinate 50 MG tablet extended release 24 hr 50 mg PO DAILY Qty: 0 vitamin A 3,000 mcg (10,000 unit) Capsule 1 cap PO DAILY Qty: 0 alendronate 35 mg Tablet 35 mg PO QWEEK atorvastatin 20 mg tablet 20 mg PO DAILY amlodipine 5 mg tablet 5 mg PO DAILY lorazepam 0.5 mg tablet 0.5 mg PO BID PRN (Reason: Anxiety) Patient Comments: TK 1 T PO BID PRN esomeprazole magnesium [Nexium] 40 mg Capsule,Delayed Release(Dr/Ec) 20 mg PO Q OTHER DAY escitalopram oxalate 10 mg tablet 10 mg PO BEDTIME Referrals: Kermit Galeas MD [Physician] - Jyoti Prasad MD [Primary Care Provider] - Stand Alone Forms: Patient Portal/API
--- NOTE | 2024-04-03 18:56 | DI.CT.S_ITS ---
PROCEDURE: CT ABDOMEN PELVIS W CON INDICATIONS: abd pain, upper TECHNIQUE: After the administration of intravenous contrast, axial sections acquired from the lung bases to the pubic symphysis. Coronal and sagittal reformats were performed. For radiation dose reduction, the following was used: automated exposure control, adjustment of mA and/or kV according to patient size. COMPARISON: [facility], CT, CT ABDOMEN PELVIS W CON, 03/30/2024, 11:22. FINDINGS: Image quality: Diagnostic. Lower Chest: Bibasilar atelectasis ABDOMEN: Liver: No solid mass. Gallbladder: Surgically absent. Biliary ducts: No biliary dilation. Pancreas: No ductal dilation. Spleen: Size is within normal limits. Adrenal Glands: No adrenal nodules. Kidneys and Ureters: No hydronephrosis. No solid mass. No complex renal cystic lesion which requires follow up. Stomach and Bowel: Small hiatal hernia. Compared to prior CT on 03/30/2024, decreased inflammatory changes and thickening of the duodenal bulb, duodenal C-loop. Colonic diverticulosis without evidence of acute inflammation. No small bowel obstruction. Peritoneum: No abnormal intraperitoneal fluid. No free air. Ventral Wall: No significant ventral hernia. Abdominal Nodes: No retroperitoneal or mesenteric adenopathy by size criteria. Vessels: Aorta and inferior vena cava are normal in size. PELVIS: Pelvic Organs: Unremarkable. Bladder: No bladder wall thickening, accounting for underdistention. Pelvic Nodes: No enlarged lymph nodes. Miscellaneous: No inguinal hernias are seen. Bones: No aggressive osseous abnormality. Redemonstration of L1 vertebral plana and inferior endplate L4 compression deformity. No new vertebral body compression fracture identified. IMPRESSION: Compared to prior CT 03/30/2024, interval decrease in inflammatory changes in the duodenal bulb/C loop region. Colonic diverticulosis without evidence of acute diverticulitis. Stable L1 and L4 compression deformities. Approved by: Vivian Islas M.D.,Ph.D. on 04/03/2024 at 18:26
[2024-04-03] MEDS: POTASSIUM CHLORIDE IN WATER 10 MEQ/100 ML PIGGYBACK 100 MEQ IV (19:08)
[2024-04-03] MEDS: SODIUM CHLORIDE 0.9% 500 ML 1000 ML IV (19:21)
[2024-04-03] MEDS: POTASSIUM CHLORIDE 20 MEQ/15 ML UDC PO (19:53)
[2024-04-03] MEDS: FAMOTIDINE 20 MG/2 ML VIAL IV (19:54)
[2024-04-03] MEDS: TRAMADOL 50 MG PREPACK 1 BOTTLE MISC (19:59)
== END 2024-04-03 20:45 | disposition home or self-care (01) ==
PROVIDERS: Emergency Provider Emergency Medicine; PCP Internal Medicine
DX: R10.12 Left upper quadrant pain (principal); E87.6 Hypokalemia
CPT/HCPCS: 36415; 74177; 80053; 83690; 85007; 85025; 93005; 96365; 96375; 96376; 99284; 99285; J1170; Q9967

== ENCOUNTER → 2024-04-06 16:04 | Outpatient (CLI) | payer OTHER, SELFPAY ==
[2024-03-30 13:52] VITALS: BMI 26.7
[2024-04-06 17:43] LABS: Appearance Urine UA SL CLOUDY; Bilirubin Urine UA NEGATIVE (NEGATIVE); Color Urine UA YELLOW; Glucose Urine UA NEGATIVE (Negative); Ketones Urine UA 1+ (NEGATIVE); Leukocyte Esterase Urine UA TRACE (NEGATIVE); Nitrite Urine UA NEGATIVE (Negative); Occult Blood Urine UA NEGATIVE (Negative); Protein Urine UA TRACE (Negative); Specific Gravity Urine UA 1.025 (1.000-1.035); Urobilinogen Urine UA 0.2 E.U./dL (0.2)
[2024-04-06 17:51] LABS: Bacteria Urine Few (2-10); Culture Indicated Urine Specimen Cultured; Hyaline Casts Urine 0-1/LPF; Mucus Urine 1+ (Negative); RBC Urine 0-1/HPF (0-5/HPF); Squamous Epithelial Cell Urine >30 /HPF (0-5/HPF); Urine Volume 10mL (spun); WBC Urine 5-10/HPF (0-5/HPF)
[2024-04-08 14:47] LABS: Interpretation Negative (Negative)
== END ==
PROVIDERS: PCP Internal Medicine; Referring Provider Surgery; Visit Provider Surgery
DX: R10.9 Unspecified abdominal pain (principal); Z90.49 Acquired absence of other specified parts of digestive tract
CPT/HCPCS: 81001; 83013; 87086

== ENCOUNTER 2024-04-15 04:03 | Emergency (ER) | payer OTHER, SELFPAY ==
[2024-03-30 13:52] VITALS: BMI 26.7
[2024-04-15] VITALS (19 sets, daily range): BP systolic 141–190; BP diastolic 68–99; PULSE 62–72; RESP 25; TEMP 37.1; O2SAT 89–98; BMI 28.3
[2024-04-15] MEDS: HYDROMORPHONE 0.5 MG INJ IV ×2 (05:08→05:26)
--- NOTE | 2024-04-15 06:44 | ED_ITS ---
HPI - General Adult <Lesli Amado MD - Last Filed: 04/18/24 18:05> General Chief complaint: Abdominal Pain Stated complaint: Constipation Time Seen by Provider: 04/15/24 04:45 Source: EMS History of Present Illness HPI narrative: 83-year-old woman with hypertension, depression and neuroendocrine tumor presents with continued severe abdominal pain. On March 14, and she was seen at [facility] in the emergency department and was felt to have constipation issues prescribed laxative. Did not feel that this was effective. She was seen at [facility] and diagnosed with cholecystitis with laparoscopic cholecystectomy on March 21 which went well but did not relieve any of her upper abdominal pain. She had recurrent pain and was admitted here to the surgical service March 30. No significant etiology was appreciated an outpatient follow up was recommended. Pain has persisted. She describes it as sharp and stabbing in the upper abdomen. At 1 point she was seen at [facility] and was started on MiraLax. She had a follow up with her outpatient provider after that who told her to stop the MiraLax started her on Protonix she has been taking daily for the last 4 days. She is brought in by medics again with severe unrelenting abdominal pain notes that she has not had a bowel movement for 3 days she is passing gas, she is nauseated but not vomiting. No fevers or chest pain. Related Data Home Medications Medication Instructions Recorded Confirmed cholecalciferol (vitamin D3) 50 1,000 unit PO Q OTHER DAY ##0 03/03/11 04/06/24 mcg (2,000 unit) capsule (Vitamin D3) ascorbic acid (vitamin C) 500 mg 1,000 mg PO DAILY ##0 05/20/13 04/06/24 tablet vitamin B complex 1 cap PO DAILY ##0 05/20/13 04/06/24 losartan 100 mg tablet 100 mg PO DAILY ##0 12/25/17 04/06/24 metoprolol succinate 50 mg 50 mg PO DAILY ##0 12/25/17 04/06/24 tablet,extended release 24 hr vitamin A 3,000 mcg (10,000 unit) 1 cap PO DAILY ##0 12/25/17 04/06/24 capsule alendronate 35 mg tablet 35 mg PO QWEEK 08/15/18 04/06/24 esomeprazole magnesium 40 mg 20 mg PO Q OTHER DAY 11/15/18 04/06/24 capsule,delayed release (Nexium) lorazepam 0.5 mg tablet 0.5 mg PO BID PRN Anxiety 11/15/18 04/06/24 escitalopram oxalate 10 mg tablet 10 mg PO BEDTIME 03/22/24 04/06/24 amlodipine 5 mg tablet 5 mg PO DAILY 03/31/24 04/06/24 atorvastatin 20 mg tablet 20 mg PO DAILY 03/31/24 04/06/24 Previous Rx's Medication Instructions Recorded hydrocodone 5 mg-acetaminophen 325 1 tab PO Q6H PRN pain #14 tabs 04/06/24 mg tablet ciprofloxacin HCl 500 mg tablet 500 mg PO BID #10 tabs 04/07/24 albuterol sulfate 90 mcg/actuation 2 puff inhalation Q6H PRN 04/15/24 aerosol inhaler shortness of breath or wheezing #8.5 grams oxycodone 5 mg tablet 5 mg PO Q6H PRN pain #20 tabs 04/15/24 sucralfate 1 gram tablet (Carafate) 1 g PO BID #30 tabs 04/15/24 Allergies Allergy/AdvReac Type Severity Reaction Status Date / Time No Known Drug Allergies Allergy Verified 04/15/24 04:14 Review of Systems <Lesli Amado MD - Last Filed: 04/18/24 18:05> Review of Systems Narrative: Pertinent positive and negative findings as per HPI Patient History <Lesli Amado MD - Last Filed: 04/18/24 18:05> Medical History Neuroendocrine tumor Surgical History Hx laparoscopic cholecystectomy History of bowel resection Social History household members: spouse Smoking Status: Never smoker alcohol intake: current Smoking Status: Never smoker alcohol intake frequency: a few times a month Substance Use Type: does not use Exam <Lesli Amado MD - Last Filed: 04/18/24 18:05> Initial Vital Signs Initial Vital Signs: Vital Signs Temperature 98.7 F 04/15/24 04:06 Pulse Rate 72 04/15/24 04:06 Respiratory Rate 25 H 04/15/24 04:06 Blood Pressure 188/99 H 04/15/24 04:06 Pulse Oximetry 96 04/15/24 04:06 Oxygen Delivery Method Room Air 04/15/24 04:06 General: Alert, in significant pain, very dry mouth but able to describe her workup to date HEENT: Dry mucous membranes, normal sclera with reactive pupils, Respiratory: Lungs are clear to auscultation, no wheezing no rales no rhonchi. Full and symmetrical air movement Cardiac: Regular rate and rhythm no murmurs no bruits Abdomen: Somewhat distended, laparoscopic cholecystectomy scars with appropriate bruising. Slightly tympanitic. No rebound or guarding no flank pain. Rectal exam: She has no stool in the vault Skin: Warm and dry, no rashes Neurologic: Grossly neurologically intact with no obvious asymmetries or abnormalities Extremities: No trauma, well perfused Psych: Cooperative, appropriate insight and affect <Larry Johnston MD - Last Filed: 04/17/24 18:36> Initial Vital Signs Initial Vital Signs: Vital Signs Temperature 98.7 F 04/15/24 04:06 Pulse Rate 72 04/15/24 04:06 Respiratory Rate 25 H 04/15/24 04:06 Blood Pressure 188/99 H 04/15/24 04:06 Pulse Oximetry 96 04/15/24 04:06 Oxygen Delivery Method Room Air 04/15/24 04:06 General: Alert, in significant pain, very dry mouth but able to describe her workup to date HEENT: Dry mucous membranes, normal sclera with reactive pupils, Respiratory: Lungs are clear to auscultation, no wheezing no rales no rhonchi. Full and symmetrical air movement Cardiac: Regular rate and rhythm no murmurs no bruits Abdomen: Nondistended, laparoscopic cholecystectomy scars with appropriate bruising. Slightly tympanitic. No rebound or guarding no flank pain. Rectal exam: She has no stool in the vault Skin: Warm and dry, no rashes Neurologic: Grossly neurologically intact with no obvious asymmetries or abnormalities Extremities: No trauma, well perfused Psych: Cooperative, appropriate insight and affect Course <Lesli Amado MD - Last Filed: 04/18/24 18:05> Orders Ordered: Discontinued Medications Famotidine (Famotidine 20 Mg/2 Ml Vial) 20 mg IV NOW CAROLINE Last Admin: 04/15/24 09:08 Dose: 20 mg Documented By: ALCIDES Hydromorphone HCl (Hydromorphone 0.5 Mg Inj) 0.5 mg IV Q15MIN PRN PRN Reason: Pain, Last Admin: 04/15/24 05:26 Dose: 0.5 mg Documented By: Admin: 04/15/24 05:08 Dose: 0.5 mg Documented By: ALEE Sodium Chloride (Normal Saline 0.9%) 1,000 mls @ 1,000 mls/hr IV BOLUS ONE Stop: 04/15/24 07:53 Last Infusion: 04/15/24 09:19 Dose: Infused Documented By: Admin: 04/15/24 07:36 Dose: 1,000 mls/hr Documented By: ALCIDES Lorazepam (Lorazepam 2 Mg/Ml Inj) 1 mg IV NOW ONE Stop: 04/15/24 08:57 Last Admin: 04/15/24 09:07 Dose: 1 mg Documented By: ALCIDES Oxycodone/Acetaminophen (Oxycodone/Acetaminophen 5/325 Tablet) 1 tab PO NOW ONE Stop: 04/15/24 14:19 Last Admin: 04/15/24 14:39 Dose: 1 tab Documented By: ALTHEA Sucralfate (Sucralfate 1 Gm/10 Ml Oral Susp) 1 gm PO Q6HR [facility] Last Admin: 04/15/24 09:07 Dose: 1 gm Documented By: ALCIDES Vital Signs Vital signs: Vital Signs - 8 hr 04/15/24 09:13 04/15/24 09:39 04/15/24 09:48 Pulse Rate 62 63 Blood Pressure Pulse Oximetry 98 94 96 04/15/24 09:48 04/15/24 10:00 04/15/24 10:00 Pulse Rate 64 Blood Pressure 162/81 H 141/68 H Pulse Oximetry 97 04/15/24 10:30 04/15/24 10:30 04/15/24 11:03 Pulse Rate 64 Blood Pressure 153/70 H Pulse Oximetry 97 89 L 04/15/24 11:05 04/15/24 11:05 04/15/24 11:30 Pulse Rate 71 69 Blood Pressure 190/86 H Pulse Oximetry 97 96 04/15/24 11:31 04/15/24 11:31 04/15/24 12:00 Pulse Rate 69 Blood Pressure 177/84 H Pulse Oximetry 96 91 04/15/24 12:01 04/15/24 12:01 04/15/24 12:29 Pulse Rate 69 Blood Pressure 168/92 H Pulse Oximetry 90 L 98 04/15/24 12:30 04/15/24 12:32 04/15/24 13:00 Pulse Rate 67 66 Blood Pressure 174/77 H Pulse Oximetry 98 98 04/15/24 13:00 Pulse Rate Blood Pressure 160/83 H Pulse Oximetry <Larry Johnston MD - Last Filed: 04/17/24 18:36> Orders Ordered: Discontinued Medications Famotidine (Famotidine 20 Mg/2 Ml Vial) 20 mg IV NOW [facility] Last Admin: 04/15/24 09:08 Dose: 20 mg Documented By: ALCIDES Hydromorphone HCl (Hydromorphone 0.5 Mg Inj) 0.5 mg IV Q15MIN PRN PRN Reason: Pain, Last Admin: 04/15/24 05:26 Dose: 0.5 mg Documented By: Admin: 04/15/24 05:08 Dose: 0.5 mg Documented By: ALEE Sodium Chloride (Normal Saline 0.9%) 1,000 mls @ 1,000 mls/hr IV BOLUS ONE Stop: 04/15/24 07:53 Last Infusion: 04/15/24 09:19 Dose: Infused Documented By: Admin: 04/15/24 07:36 Dose: 1,000 mls/hr Documented By: ALCIDES Lorazepam (Lorazepam 2 Mg/Ml Inj) 1 mg IV NOW ONE Stop: 04/15/24 08:57 Last Admin: 04/15/24 09:07 Dose: 1 mg Documented By: ALCIDES Oxycodone/Acetaminophen (Oxycodone/Acetaminophen 5/325 Tablet) 1 tab PO NOW ONE Stop: 04/15/24 14:19 Last Admin: 04/15/24 14:39 Dose: 1 tab Documented By: ALTHEA Sucralfate (Sucralfate 1 Gm/10 Ml Oral Susp) 1 gm PO Q6HR [facility]OLINE Last Admin: 04/15/24 09:07 Dose: 1 gm Documented By: ALCIDES Vital Signs Vital signs: Vital Signs - 8 hr 04/15/24 09:13 04/15/24 09:39 04/15/24 09:48 Pulse Rate 62 63 Blood Pressure Pulse Oximetry 98 94 96 04/15/24 09:48 04/15/24 10:00 04/15/24 10:00 Pulse Rate 64 Blood Pressure 162/81 H 141/68 H Pulse Oximetry 97 04/15/24 10:30 04/15/24 10:30 04/15/24 11:03 Pulse Rate 64 Blood Pressure 153/70 H Pulse Oximetry 97 89 L 04/15/24 11:05 04/15/24 11:05 04/15/24 11:30 Pulse Rate 71 69 Blood Pressure 190/86 H Pulse Oximetry 97 96 04/15/24 11:31 04/15/24 11:31 04/15/24 12:00 Pulse Rate 69 Blood Pressure 177/84 H Pulse Oximetry 96 91 04/15/24 12:01 04/15/24 12:01 04/15/24 12:29 Pulse Rate 69 Blood Pressure 168/92 H Pulse Oximetry 90 L 98 04/15/24 12:30 04/15/24 12:32 04/15/24 13:00 Pulse Rate 67 66 Blood Pressure 174/77 H Pulse Oximetry 98 98 04/15/24 13:00 Pulse Rate Blood Pressure 160/83 H Pulse Oximetry Medical Decision Making <Lesli Amado MD - Last Filed: 04/18/24 18:05> Lab Data 04/15/24 04:16 04/15/24 04:16 Labs: Lab Results 04/15/24 Range/Units 04:16 WBC 5.4 (4.5-11.0) X10^3/uL RBC 2.90 L (4.0-5.2) X10^6/uL Hgb 10.2 L (12.0-16.0) g/dL Hct 29.2 L (36-46) % MCV 100.7 H (80-100) fL MCH 35.1 H (26-34) PG MCHC 34.9 (30-36) % RDW 21.4 H (11.6-14.8) % Plt Count 156 (150-400) X10^3/uL Neut % (Auto) 42.1 L (50-75) % Lymph % (Auto) 45.8 H (25-40) % [place] % (Auto) 10.9 (3-14) % Eos % (Auto) 0.8 L (2-4) % Baso % (Auto) 0.4 (0-2) % Neut # (Auto) 2300 (6793-0998) /uL Lymph # (Auto) 2500 (8516-3462) /uL [place] # (Auto) 600 (0-900) /uL Eos # (Auto) 0 (0-450) /uL Baso # (Auto) 0 (0-100) /uL RBC Morphology Not Reportable Anisocytosis 2+ H Macrocytosis 2+ H Sodium 135 L (137-145) mmol/L Potassium 3.1 L (3.4-5.1) mmol/L Chloride 101 (98-107) mmol/L Carbon Dioxide 28 (22-32) mmol/L BUN 11 (7-17) mg/dL Creatinine 0.77 (0.52-1.04) mg/dL Estimated GFR > 60 (>60) mL/min BUN/Creatinine Ratio 14.3 (6-22) Glucose 140 H (80-110) mg/dL Lactate 1.6 (0.7-2.1) mmol/L Calcium 9.5 (8.4-10.2) mg/dL Magnesium 1.6 (1.6-2.3) mg/dL Total Bilirubin 1.0 (0.2-1.3) mg/dL AST 34 (14-36) IU/L ALT 17 (<35) IU/L Alkaline Phosphatase 103 (38-126) U/L Troponin I < 0.012 (0.01-0.034) ng/mL Total Protein 11.1 H (6.3-8.2) g/dL Albumin 3.7 (3.5-5.0) g/dL Globulin 7.4 H (1.7-4.1) g/dL Albumin/Globulin Ratio 0.5 L (1.0-2.8) Lipase 147 (23-300) U/L MDM Narrative Medical decision making narrative: CC: Unrelenting abdominal pain since early March Complicating co-morbidities: History of neuroendocrine tumor, laparoscopic cholecystectomy in mid March that did not was leave her tenderness Data collected from: patient Medical records reviewed: [facility] medical records with surgical consultations ER visits and hospital stays regarding her abdominal pain are all reviewed. Imaging studies at [facility] alone (she has also had imaging done at [facility] and [place]) include [address] scans most recently April 03. Abdominal ultrasound, chest x-ray and MRCP on March 22. Most recent CT of the abdomen on April 03 shows normal liver, surgically absent gallbladder, no ductal dilatation. Decreased inflammatory changes around the duodenal bulb. No bowel obstruction appreciated. Independent review does not suggest significant stool loading as the source of her pain Differential considered: Unexplained abdominal pain. Gallbladder has come out there was no signs of ascending cholangitis she does not have dilated ducts to suggest retained stones, there was no pancreatic masses or tumors, she does not have acute pancreatitis. Duodenal ulcer remains a possibility but does not explain the continued distention and severe pain. She currently is already on Protonix for this and showing no signs of active bleeding. There are no new compression fractures, she does not have zoster, no bowel wall abnormalities appreciated on CT scans. Rectal exam today shows no stool in the vault to suggest severe obstipation Exam documented above, pertinent findings include: Patient is alert and appropriate, very dry mucous membranes, distended somewhat tympanitic abdomen tender to palpation yet not showing rebound or guarding Lab Test results independently reviewed as above. Pertinent findings: Independently reviewed EKG: Imaging studies independently reviewed: Consultations: Treatments: Re-evaluations: Discussion: <Larry Johnston MD - Last Filed: 04/17/24 18:36> Lab Data Lab results reviewed: Yes I reviewed the patient's lab results. Labs: Lab Results 04/15/24 Range/Units 04:16 WBC 5.4 (4.5-11.0) X10^3/uL RBC 2.90 L (4.0-5.2) X10^6/uL Hgb 10.2 L (12.0-16.0) g/dL Hct 29.2 L (36-46) % MCV 100.7 H (80-100) fL MCH 35.1 H (26-34) PG MCHC 34.9 (30-36) % RDW 21.4 H (11.6-14.8) % Plt Count 156 (150-400) X10^3/uL Neut % (Auto) 42.1 L (50-75) % Lymph % (Auto) 45.8 H (25-40) % [place] % (Auto) 10.9 (3-14) % Eos % (Auto) 0.8 L (2-4) % Baso % (Auto) 0.4 (0-2) % Neut # (Auto) 2300 (8090-3973) /uL Lymph # (Auto) 2500 (1908-3195) /uL [place] # (Auto) 600 (0-900) /uL Eos # (Auto) 0 (0-450) /uL Baso # (Auto) 0 (0-100) /uL RBC Morphology Not Reportable Anisocytosis 2+ H Macrocytosis 2+ H Sodium 135 L (137-145) mmol/L Potassium 3.1 L (3.4-5.1) mmol/L Chloride 101 (98-107) mmol/L Carbon Dioxide 28 (22-32) mmol/L BUN 11 (7-17) mg/dL Creatinine 0.77 (0.52-1.04) mg/dL Estimated GFR > 60 (>60) mL/min BUN/Creatinine Ratio 14.3 (6-22) Glucose 140 H (80-110) mg/dL Lactate 1.6 (0.7-2.1) mmol/L Calcium 9.5 (8.4-10.2) mg/dL Magnesium 1.6 (1.6-2.3) mg/dL Total Bilirubin 1.0 (0.2-1.3) mg/dL AST 34 (14-36) IU/L ALT 17 (<35) IU/L Alkaline Phosphatase 103 (38-126) U/L Troponin I < 0.012 (0.01-0.034) ng/mL Total Protein 11.1 H (6.3-8.2) g/dL Albumin 3.7 (3.5-5.0) g/dL Globulin 7.4 H (1.7-4.1) g/dL Albumin/Globulin Ratio 0.5 L (1.0-2.8) Lipase 147 (23-300) U/L MDM Narrative Medical decision making narrative: CC: Unrelenting abdominal pain since early March Complicating co-morbidities: History of neuroendocrine tumor, laparoscopic cholecystectomy in mid March that did not was leave her tenderness Data collected from: patient Medical records reviewed: [facility] medical records with surgical consultations ER visits and hospital stays regarding her abdominal pain are all reviewed. Imaging studies at [facility] alone (she has also had imaging done at [facility] and [place]) include [address] scans most recently April 03. Abdominal ultrasound, chest x-ray and MRCP on March 22. Most recent CT of the abdomen on April 03 shows normal liver, surgically absent gallbladder, no ductal dilatation. Decreased inflammatory changes around the duodenal bulb. No bowel obstruction appreciated. Independent review does not suggest significant stool loading as the source of her pain Differential considered: Unexplained abdominal pain. Gallbladder has come out there was no signs of ascending cholangitis she does not have dilated ducts to suggest retained stones, there was no pancreatic masses or tumors, she does not have acute pancreatitis. Duodenal ulcer remains a possibility but does not explain the continued distention and severe pain. She currently is already on Protonix for this and showing no signs of active bleeding. There are no new compression fractures, she does not have zoster, no bowel wall abnormalities appreciated on CT scans. Rectal exam today shows no stool in the vault to suggest severe obstipation Exam documented above, pertinent findings include: Patient is alert and appropriate, very dry mucous membranes, distended somewhat tympanitic abdomen tender to palpation yet not showing rebound or guarding Lab Test results independently reviewed as above. Pertinent findings: Independently reviewed EKG: Imaging studies independently reviewed: Consultations: Treatments: Re-evaluations: Discussion: [place], 04/15/2024, 7:15 a.m.. Sign-out from Dr. Amado. 83-year-old female with ongoing abdominal pain, previous visits on 03/14/2024, 03/15/2024, 03/16/2024, at [facility] Emergency Department, felt to have constipation issues and was prescribed laxative, which apparently was not effective. Diagnosis of cholecystitis on 03/21/2024 at [facility], underwent laparoscopic cholecystectomy, uncomplicated procedure, did not relieve her upper abdominal discomfort. She was admitted here for abdominal pain 03/30/24-04/01/24 without specific diagnosis, no upper endoscopy during that stay. ED evaluation here 04/03/[address] abdomen and pelvis imaging that was negative for acute findings. She is seen her outpatient primary care provider, stopped taking MiraLax, started taking Protonix, still having pain. No black or red stools. Afebrile, sirs screen negative. Labs pending for today. Consider surgical consultation for upper endoscopy. We will give IV Pepcid. Assumed interim care. Patient recent med list includes tramadol with instructions to take twice daily, pantoprazole, also she is prescribed Ketoralac. We talked about the utility of oral Toradol medication, useful for pain control, but can harsh on the stomach, perhaps she can stop taking this for now. Continue taking the pantoprazole, consider adding Carafate in the near term. She may eventually need an upper endoscopy evaluation. But there are some medication modifications that could be tried in the interim. She seemed amenable to this plan. Patient had increased pain left upper quadrant. Some tenderness left lower chest, lungs clear. They would like additional imaging. CT abdomen and pelvis imaging requested. CT abdomen and pelvis with IV contrast. Impressions: ?Although incompletely imaged, there at least fractures of the lateral left 6th and 7th ribs with associated small pleural effusion and mild bibasilar atelectasis. Moderate cardiomegaly. Remote partial left hepatectomy. Remote cholecystectomy and hysterectomy. No acute abdominal process noted. Severe chronic osteoporotic compression. ? Chest x-ray additional imaging for other ribs requested. No upper rib fractures or pulmonary contusion changes noted. Additional family present, answered their questions regarding findings, left- sided abdominal pain may be related to left 6th and 7th rib fractures that were noted on CT imaging tonight, continue taking tramadol. They request something stronger to use if needed for pain control. Oxycodone sent to their pharmacy, but advised not to use it same time as tramadol. Incentive spirometry with teaching at bedside. Albuterol MDI prescription, with spacer and teaching for pulmonary toilet. Advised to stop the Toradol for now, if any component of her epigastric pain is due to NSAID induced gastritis. Consider adding Carafate to her pantoprazole antacid medical regimen. Follow up with PCP advised on Thursday. Return precautions discussed. Home with family, improved, stable. Critical Care Time <Larry Johnston MD - Last Filed: 04/17/24 18:36> Critical Care Time Critical Care Time: Yes Total Critical Care Time: 35 Attestation: The high probability of a clinically significant, sudden or life threatening deterioration of the [gastrointestinal, cardiopulmonary] system(s) required my full and direct attention, intervention and personal management. The aggregate critical care time was [35] minutes. This time is in addition to time spent performing reported procedures but includes the following: [x] Data Review and interpretation [x] Patient assessment and monitoring of vital signs [x] Documentation [x] Medication orders and management Discharge Plan Departure Patient Disposition: Home Clinical Impression: Epigastric abdominal pain, Left rib fracture Instructions: DI for Rib Fracture, DI for Abdominal Pain-Adult Activity Restrictions/Additional Instructions: Ongoing abdominal discomfort predominantly epigastric in location, prior cholecystectomy, recent CT scanning [id number] for acute process. More recently you had stopped MiraLax through your primary care provider and were prescribed Toradol and pantoprazole antacid and also tramadol pain control medication. You had epigastric discomfort and also some left upper abdominal discomfort. Initial x-ray imaging showed possible fracture left rib 6 and 7. You had further increased pain. CT abdomen and pelvis imaging showed no intra-abdominal acute process, did show fracture to left ribs 6 and 7. His important that you have adequate pain control, breathe deeply so the not develop a pneumonia. Oxycodone pain medication sent to your pharmacy, to use in place of tramadol if needed for additional pain control with the 1st few days, then tramadol as needed for your ongoing epigastric discomfort. Continue your antacid pantoprazole medication, consider use of Carafate acid binding medication as well. Consider stopping your Toradol medication, which was a very fine medication for pain control, however it can be pretty rough on the stomach. Use incentive spirometer to help expand the lungs. Use inhaler to help keep the lungs open as well. Recheck with your regular provider early next week. Return to this/nearest emergency department for any change worsening symptoms or any concerns prior Prescriptions: New sucralfate [Carafate] 1 gram tablet 1 g PO BID Qty: 30 0RF albuterol sulfate 90 mcg/actuation HFA aerosol inhaler 2 puff inhalation Q6H PRN (Reason: shortness of breath or wheezing) Qty: 8.5 0RF oxycodone 5 mg tablet 5 mg PO Q6H PRN (Reason: pain) Qty: 20 0RF No Action cholecalciferol (vitamin D3) [Vitamin D3] 2,000 unit Capsule 1,000 unit PO Q OTHER DAY Qty: 0 ascorbic acid (vitamin C) 500 MG tablet 1,000 mg PO DAILY Qty: 0 vitamin B complex Capsule 1 cap PO DAILY Qty: 0 losartan 100 MG tablet 100 mg PO DAILY Qty: 0 metoprolol succinate 50 MG tablet extended release 24 hr 50 mg PO DAILY Qty: 0 vitamin A 3,000 mcg (10,000 unit) Capsule 1 cap PO DAILY Qty: 0 ciprofloxacin HCl 500 mg tablet 500 mg PO BID Qty: 10 0RF hydrocodone-acetaminophen 5-325 mg tablet 1 tab PO Q6H PRN (Reason: pain) Qty: 14 0RF alendronate 35 mg Tablet 35 mg PO QWEEK atorvastatin 20 mg tablet 20 mg PO DAILY amlodipine 5 mg tablet 5 mg PO DAILY lorazepam 0.5 mg tablet 0.5 mg PO BID PRN (Reason: Anxiety) Patient Comments: TK 1 T PO BID PRN esomeprazole magnesium [Nexium] 40 mg Capsule,Delayed Release(Dr/Ec) 20 mg PO Q OTHER DAY escitalopram oxalate 10 mg tablet 10 mg PO BEDTIME Referrals: Jyoti Prasad MD [Primary Care Provider] - Stand Alone Forms: Patient Portal/API
[2024-04-15 07:15] LABS: Add Manual Diff / Slide Review NO; Basophils Absolute Auto 0 /uL (0-100); Basophils Percent Auto 0.4 % (0-2); Eosinophils Absolute Auto 0 /uL (0-450); Eosinophils Percent Auto 0.8 % (2-4); Hematocrit 29.2 % (36-46); Hemoglobin 10.2 g/dL (12.0-16.0); Lymphocytes Absolute Auto 2500 /uL (1100-4500); Lymphocytes Percent Auto 45.8 % (25-40); Mean Corpuscular HGB Conc 34.9 % (30-36); Mean Corpuscular Hemoglobin 35.1 PG (26-34); Mean Corpuscular Volume 100.7 fL (80-100); Monocytes Absolute Auto 600 /uL (0-900); Monocytes Percent Auto 10.9 % (3-14); Neutrophils Absolute Auto 2300 /uL (1500-7000); Neutrophils Percent Auto 42.1 % (50-75); Platelet Count 156 X10^3/uL (150-400); Red Cell Distribution Width 21.4 % (11.6-14.8); White Blood Cell Count 5.4 X10^3/uL (4.5-11.0)
[2024-04-15 07:16] LABS: Lipase 147 U/L (23-300); Magnesium 1.6 mg/dL (1.6-2.3)
[2024-04-15 07:18] LABS: Alanine Aminotransferase 17 IU/L (<35); Albumin 3.7 g/dL (3.5-5.0); Alkaline Phosphatase 103 U/L (38-126); Aspartate Aminotransferase 34 IU/L (14-36); BUN Creatinine Ratio 14.3 (6-22); Blood Urea Nitrogen 11 mg/dL (7-17); Calcium 9.5 mg/dL (8.4-10.2); Carbon Dioxide 28 mmol/L (22-32); Chloride 101 mmol/L (98-107); Estimated Glomerular Filt Rate > 60 mL/min (>60); Glucose 140 mg/dL (80-110); HEMOLYSIS < 15 (0-50); Lactate (Lactic Acid) 1.6 mmol/L (0.7-2.1); Potassium 3.1 mmol/L (3.4-5.1); Sodium 135 mmol/L (137-145)
[2024-04-15 07:25] LABS: Albumin Globulin Ratio 0.5 (1.0-2.8); Globulin 7.4 g/dL (1.7-4.1); Total Protein 11.1 g/dL (6.3-8.2)
[2024-04-15 07:28] LABS: Anisocytosis 2+; Macrocytosis 2+
[2024-04-15 07:29] LABS: Troponin I < 0.012 ng/mL (0.01-0.034)
[2024-04-15] MEDS: SODIUM CHLORIDE 0.9% 1,000 ML 1000 ML IV (07:36)
--- NOTE | 2024-04-15 08:30 | DI.RAD.S_ITS ---
PROCEDURE: XR ABDOMEN 1V INDICATIONS: Abd pain, No BM x3 days TECHNIQUE: One view of the abdomen acquired. COMPARISON: [facility], CT, CT ABDOMEN PELVIS W CON, 04/03/2024, 18:45. [facility], CR, XR CHEST 1V, 03/30/2024, 10:55. [facility], CR, XR ABDOMEN 1V, 03/25/2024, 16:14. FINDINGS: Surgical changes and devices: None. Bowel: Bowel gas pattern is nonspecific with no evidence of bowel obstruction.. Soft tissues: Deformity of the lower left ribcage is consistent with multiple rib fractures of unknown chronicity. There is associated subjacent density, which may potentially represent associated loculated fluid or pulmonary contusion. No suspicious abdominal calcifications. Visualized solid organ contours appear normal in size. Bones: No suspicious bony lesions. IMPRESSION: Left lower rib fractures may potentially be acute with associated subjacent density possibly representing loculated fluid or pulmonary contusion. Nonspecific bowel gas pattern. Comment: It is noted that the patient is scheduled to undergo a CT of the abdomen and pelvis. The potential rib fractures will be seen at that time. Dictated by: Grady Bocanegra M.D. on 04/15/2024 at 9:21 Approved by: Grady Bocanegra M.D. on 04/15/2024 at 9:23
--- NOTE | 2024-04-15 08:55 | DI.CT.S_ITS ---
PROCEDURE: CT ABDOMEN PELVIS W CON INDICATIONS: No BM x3 intractable pain. TECHNIQUE: After the administration of intravenous contrast, axial sections acquired from the lung bases to the pubic symphysis. Coronal and sagittal reformats were performed. For radiation dose reduction, the following was used: automated exposure control, adjustment of mA and/or kV according to patient size. COMPARISON: [facility], CT, CT ABDOMEN PELVIS W CON, 03/22/2024, 14:06. [facility], CT, CT ABDOMEN PELVIS W CON, 03/30/2024, 11:22. [facility], CT, CT ABDOMEN PELVIS W CON, 04/03/2024, 18:45. FINDINGS: Image quality: Diagnostic. Lower Chest: There are fractures of the lateral left 6th and 7th ribs. There is a small left pleural effusion. Moderate cardiomegaly. Minimal bibasilar atelectasis, left greater than right.. ABDOMEN: Liver: No solid mass. Remote partial resection of the left lobe of the liver. Gallbladder: Surgically absent Biliary ducts: No biliary dilation. Pancreas: No ductal dilation. Spleen: Size is within normal limits. Adrenal Glands: No adrenal nodules. Kidneys and Ureters: No hydronephrosis. No solid mass. No complex renal cystic lesion which requires follow up. Stomach and Bowel: Small hiatal hernia. Duodenal bulb and C-loop inflammatory changes have resolved. There is still some prominence of the distal antrum and pylorus of the stomach. Peritoneum: No abnormal intraperitoneal fluid. No free air. Ventral Wall: No significant ventral hernia. Abdominal Nodes: No retroperitoneal or mesenteric adenopathy by size criteria. Vessels: Aorta and inferior vena cava are normal in size. PELVIS: Pelvic Organs: Uterus is surgically absent.. Bladder: No bladder wall thickening, accounting for underdistention. Pelvic Nodes: No enlarged lymph nodes. Miscellaneous: No inguinal hernias are seen. Bones: No aggressive osseous abnormality. Old severe L1 compression with bony retropulsion and mild canal stenosis. IMPRESSION: 1. Although incompletely imaged, there are at least fractures of the lateral left 6th and 7th ribs with associated small pleural effusion and mild bibasilar atelectasis. 2. Moderate cardiomegaly. 3. Remote partial left hepatectomy. 4. Remote cholecystectomy and hysterectomy. 5. No acute abdominal process noted. 6. Severe chronic osteoporotic compression. Dictated by: Grady Bocanegra M.D. on 04/15/2024 at 10:01 Approved by: Grady Bocanegra M.D. on 04/15/2024 at 10:09
--- NOTE | 2024-04-15 08:57 | PC.NURSE ---
Patient reports severe pain LUQ, comes in waves of intensity. Patient reports I can't breath placed on 2L NC for supportive comfort. Patient unable to lay flat for Xray of abd. Dr Johnston aware of change in patients condition and verbal orders obtained for imaging and meds.
[2024-04-15] MEDS: SUCRALFATE 1 GM/10 ML ORAL SUSP PO (09:07)
[2024-04-15] MEDS: LORazepam 2 MG/ML INJ 1 MG IV (09:07)
[2024-04-15] MEDS: FAMOTIDINE 20 MG/2 ML VIAL IV (09:08)
--- NOTE | 2024-04-15 10:08 | PC.NURSE ---
At request of patient and family conversation had with Galileo Hogue([facility]) regarding results and plan of care.
--- NOTE | 2024-04-15 11:05 | PC.NURSE ---
Incontinent of urine on the way to restroom
--- NOTE | 2024-04-15 13:01 | DI.RAD.S_ITS ---
PROCEDURE: XR CHEST 1V INDICATIONS: left rib fx on CT Abd/P, image rest of chest TECHNIQUE: One view of the chest was acquired. COMPARISON: [facility], CT, CT ABDOMEN PELVIS W CON, 04/15/2024, 9:33. [facility], CR, XR CHEST 1V, 03/30/2024, 10:55. FINDINGS: Surgical changes and devices: None. Lungs and pleura: Lungs are clear. No pneumothorax. The minimal fluid present on the CT is not identifiable by chest film. Mediastinum: Mediastinal contours appear normal. Cardiomegaly. Bones and chest wall: No suspicious bony lesions. The fracture seen on CT are not well imaged on this chest x-ray. Overlying soft tissues appear unremarkable. IMPRESSION: Rib fractures seen on CT are not visualized on plain films. No pneumothorax. Dictated by: Grady Bocanegra M.D. on 04/15/2024 at 13:48 Approved by: Grady Bocanegra M.D. on 04/15/2024 at 13:51
--- NOTE | 2024-04-15 14:00 | PC.NURSE ---
Spoke in depth with patient and family regarding pain medication options. Asked Dr Johnston about adding on topical lidocaine patch and volteren ointment at request of the family.
[2024-04-15] MEDS: OXYCODONE/ACETAMINOPHEN 5/325 TABLET 1 TAB PO (14:39)
--- NOTE | 2024-04-20 08:46 | PC.NURSE ---
Late Entry on 04/15/24 3262 administration of 0.5mg Hydromorphone IV to patient.
== END 2024-04-15 14:40 | disposition home or self-care (01) ==
PROVIDERS: Emergency Medicine; Emergency Provider Emergency Medicine; PCP Internal Medicine
DX: R10.13 Epigastric pain (principal); X58.XXXA Exposure to other specified factors, initial encounter; S22.42XA Multiple fractures of ribs, left side, initial encounter for closed fracture
CPT/HCPCS: 36415; 71045; 74019; 74177; 80053; 83605; 83690; 83735; 84484; 85025; 96374; 96375; 99285; 99291; J1170; J2060; Q9967

== ENCOUNTER → 2024-07-20 13:06 | Outpatient (CLI) | payer OTHER, SELFPAY ==
[2024-03-30 13:52] VITALS: BMI 26.7
--- NOTE | 2024-07-20 | DI.RAD.S_ITS ---
PROCEDURE: XR CHEST 2V INDICATIONS: Hemothorax TECHNIQUE: 2 views of the chest were acquired. COMPARISON: [facility], CR, XR CHEST 1V, 04/15/2024, 13:06. [facility], CR, XR CHEST 1V, 03/30/2024, 10:55. FINDINGS: Surgical changes and devices: Right-sided chest port tip projects over the low SVC. Lungs and pleura: Moderate right-sided pleural effusion. Mediastinum: Mediastinal contours are normal. Heart size is normal. Bones and chest wall: Displaced right lateral and posterior rib fractures. Chronic appearing compression deformity the lower and midthoracic vertebral bodies. IMPRESSION: Displaced right lateral and posterior rib fractures. Moderate right-sided pleural effusion, probably hemothorax. Dictated by: Zan Eldridge M.D. on 07/20/2024 at 16:08 Approved by: Zan Eldridge M.D. on 07/20/2024 at 16:09
== END ==
PROVIDERS: PCP Internal Medicine; Referring Provider Internal Medicine; Visit Provider Internal Medicine
DX: J94.2 Hemothorax (principal); S22.41XA Multiple fractures of ribs, right side, initial encounter for closed fracture; J90 Pleural effusion, not elsewhere classified; M43.8X4 Other specified deforming dorsopathies, thoracic region
CPT/HCPCS: 71046